=== PATIENT | male | born 1950 | race Caucasian/White ===

== ENCOUNTER 2020-06-06 15:14 | Emergency (ER) | payer MEDICARE, OTHER ==
[~2020-06-06] VITALS: Ht 177.8 cm; Wt 85.0 kg
[~2020-06-06 15:14] MED LIST: ASCO500T4 PO; ATOR20TA58 PO; CARB1TAB2 PO; CEPH-264 PO; MULT1TAB90 PO; MUPI22OI2 NS; QUET25TA5 PO; ROPI4TAB10 PO
--- NOTE | 2020-06-06 15:42 | PHYS DOC ---
Past Medical History Past Medical History: Dementia, Other Additional Past Medical Histor: parkinson's Additional Past Surgical Histo: pt is poor historian Smoking Status: Never Smoker Alcohol Use: None Drug Use: None General Adult EDM: Chief Complaint: MECHANICAL FALL HPI: HPI: Patient is a 69-year-old male with dementia who stays at a snf. Apparently, he fell sometime last night. Patient does not remember falling. He does not have any current complaints. He does not have a headache he does not have any long bone pain. According to the snf they found him with blood in his mouth and short of breath. EMS was called and EMS his report was he had no blood and was not short of breath. Patient is able to answer questions and very clearly states he is having no symptoms and would prefer to go home. [] Review of Systems: Review of Systems: Constitutional: Denies fever or chills. [] Eyes: Denies change in visual acuity. [] HENT: Denies nasal congestion or sore throat. [] Respiratory: Denies cough or shortness of breath. [] Cardiovascular: Denies chest pain or edema. [] GI: Denies abdominal pain, nausea, vomiting, bloody stools or diarrhea. [] Musculoskeletal: Denies back pain or joint pain. [] Review of systems is unobtainable secondary to dementia Heart Score: Risk Factors: Risk Factors: DM, Current or recent (<one month) smoker, HTN, HLP, family history of CAD, obesity. Risk Scores: Score 0 - 3: 2.5% MACE over next 6 weeks - Discharge Home Score 4 - 6: 20.3% MACE over next 6 weeks - Admit for Clinical Observation Score 7 - 10: 72.7% MACE over next 6 weeks - Early Invasive Strategies Allergies: Allergies: Allergies Coded Allergies Type Severity Reaction Last Updated Verified No Known Drug Allergies 07/28/19 No Physical Exam: PE: Constitutional: Well developed, well nourished, no acute distress, non-toxic appearance, readily answers questions. [] HENT: Normocephalic, atraumatic, bilateral external ears normal, oropharynx moist, no oral exudates, nose normal. [] Eyes: PERRLA, EOMI, conjunctiva normal, no discharge. [] Neck: Normal range of motion, no tenderness, supple, no stridor. [] Cardiovascular:Heart rate regular rhythm, no murmur [] Lungs & Thorax: Bilateral breath sounds clear to auscultation [] Abdomen: Bowel sounds normal, soft, no tenderness, no masses, no pulsatile masses. [] Skin: Warm, dry, no erythema, no rash. [] Back: No tenderness, no CVA tenderness. [] Extremities: No tenderness, no cyanosis, no clubbing, ROM intact, no edema. [] Neurologic: Alert to person and time, normal motor function, normal sensory function, no focal deficits noted. [] Psychologic: Flat affect [] EKG: EKG: EKG: Normal sinus rhythm rate of [address]-T changes [] Radiology/Procedures: Radiology/Procedures: [] Course & Med Decision Making: Course & Med Decision Making Pertinent Labs and Imaging studies reviewed. (See chart for details) [ED course: Evaluation reveals a 69-year-old with no visible complaints or problems. His vital signs are normal his oxygen saturation is in the upper 90s and his breath is nonlabored. At this point I do not see any reason to undergo a work-up for someone with no complaints. I feel it safe for the patient to be sent back to the snf.] Dragon Disclaimer: Dragon Disclaimer: This electronic medical record was generated, in whole or in part, using a voice recognition dictation system. Departure Departure Impression: Primary Impression: Unwitnessed fall Disposition: 01 HOME, SELF-CARE Condition: STABLE Referrals: NON,STAFF (PCP) Patient Instructions: Fall Prevention in Hospitals Additional Instructions: Return to the emergency department with any new or concerning symptoms Justicifation of Admission Dx: Justifications for Admission: Justification of Admission Dx: TAMIA Oro DO Jun 06, 2020 15:41
[2020-06-06 17:05] VITALS: BP 141/87
== END 2020-06-06 17:30 | disposition home or self-care (01) ==
LOC: ER 15:14
DX: R06.02 Shortness of breath (principal); K14.9 Disease of tongue, unspecified; G20 Parkinson's disease; F02.80 Dementia in other diseases classified elsewhere, unspecified severity, without behavioral disturbance, psychotic disturbance, mood disturbance, and anxiety; W19.XXXA Unspecified fall, initial encounter; Y93.89 Activity, other specified; Y92.128 Other place in nursing home as the place of occurrence of the external cause; Y99.8 Other external cause status
CPT/HCPCS: 99284

== ENCOUNTER 2020-06-11 14:52 | Inpatient (IN) | payer MEDICARE, OTHER ==
[~2020-06-11] VITALS: Ht 167.6 cm; Wt 77.7 kg
[2020-06-11] VITALS (7 sets, daily range): BP systolic 103–131; BP diastolic 51–78
[2020-06-11] MEDS ORDERED: IV NORMAL SALINE 1000ML BAG 1,000 ML IV ONE (15:00)
--- NOTE | 2020-06-11 15:15 | PHYS DOC ---
Past Medical History Past Medical History: Dementia, Other Additional Past Medical Histor: parkinson's, pressure ulcer Left hip Additional Past Surgical Histo: pt is poor historian, + midline chest surgical scar (old) Smoking Status: Never Smoker Alcohol Use: None Drug Use: None General Adult EDM: Chief Complaint: FEVER, COUGH HPI: HPI: Patient is a 69 year old male who presents with fever. History and physical is limited as altered mental status. EMS reports a temperature of 101. Patient was also found to be hypoxic requiring oxygen. Patient denies any shortness of breath. Patient denies cough but is coughing in the room. Patient denies any pain at this time. Patient is from a alf with known COVID patients. Review of Systems: Review of Systems: Constitutional: Reports fever Eyes: Denies change in visual acuity. [] HENT: Denies nasal congestion or sore throat. [] Respiratory: Reports of cough and shortness of breath Cardiovascular: Denies chest pain or edema. [] GI: Denies abdominal pain, nausea, vomiting, bloody stools or diarrhea. [] : Denies dysuria. [] Musculoskeletal: Denies back pain or joint pain. [] Integument: Denies rash. [] Neurologic: Denies headache, focal weakness or sensory changes. [] Endocrine: Denies polyuria or polydipsia. [] Lymphatic: Denies swollen glands. [] Psychiatric: Denies depression or anxiety. [] Heart Score: Risk Factors: Risk Factors: DM, Current or recent (<one month) smoker, HTN, HLP, family history of CAD, obesity. Risk Scores: Score 0 - 3: 2.5% MACE over next 6 weeks - Discharge Home Score 4 - 6: 20.3% MACE over next 6 weeks - Admit for Clinical Observation Score 7 - 10: 72.7% MACE over next 6 weeks - Early Invasive Strategies Current Medications: Current Medications Medications (Trade) Dose Ordered Sig/Abbey Start Time Stop Time Status Last Admin Dose Admin Acetaminophen (Tylenol) 1,000 mg 1X ONCE 06/11/20 15:30 06/11/20 15:31 Piperacillin Sod/ Tazobactam Sod 4.5 gm/Sodium Chloride 100 ml @ 200 mls/hr 1X ONCE 06/11/20 15:30 06/11/20 15:59 Sodium Chloride 1,000 ml @ 1,000 mls/hr 1X ONCE 06/11/20 15:00 06/11/20 15:59 Allergies: Allergies: Allergies Coded Allergies Type Severity Reaction Last Updated Verified No Known Drug Allergies 07/28/19 No Physical Exam: PE: Constitutional: Well developed, well nourished, mild distress HENT: Normocephalic, atraumatic, no trismus, mild dry oral mucosa Eyes: PERRLA, EOMI, conjunctiva normal, no discharge. [] Neck: Normal range of motion, no tenderness, supple, no stridor. [] Cardiovascular:Heart rate regular rhythm, no murmur [] Lungs & Thorax: Diminished breath sounds with scattered rhonchi Abdomen: soft, no tenderness, no masses, no pulsatile masses. [] Skin: Warm, dry, pale Back: No tenderness, no CVA tenderness. [] Extremities: No tenderness, no cyanosis, no clubbing, ROM intact, no edema. [] Neurologic: Alert and and oriented to year but confused exact date., Generalized weakness Psychologic: Affect normal, judgement normal, mood normal. [] Current Patient Data: Labs: Laboratory Tests Test 06/11/20 15:10 06/11/20 16:53 White Blood Count 3.8 x10^3/uL Red Blood Count 2.60 x10^6/uL Hemoglobin 7.6 g/dL Hematocrit 22.0 % Mean Corpuscular Volume 85 fL Mean Corpuscular Hemoglobin 29 pg Mean Corpuscular Hemoglobin Concent 34 g/dL Red Cell Distribution Width 13.8 % Platelet Count 131 x10^3/uL Neutrophils (%) (Auto) 83 % Lymphocytes (%) (Auto) 11 % Monocytes (%) (Auto) 5 % Eosinophils (%) (Auto) 0 % Basophils (%) (Auto) 0 % Neutrophils # (Auto) 3.1 x10^3/uL Lymphocytes # (Auto) 0.4 x10^3/uL Monocytes # (Auto) 0.2 x10^3/uL Eosinophils # (Auto) 0.0 x10^3/uL Basophils # (Auto) 0.0 x10^3/uL Prothrombin Time 14.6 SEC Prothromb Time International Ratio 1.2 Activated Partial Thromboplast Time 38 SEC Fibrinogen 279 mg/dL D-Dimer (Codi) 18.00 ug/mlFEU Sodium Level 135 mmol/L Potassium Level 4.1 mmol/L Chloride Level 101 mmol/L Carbon Dioxide Level 14 mmol/L Anion Gap 20 Blood Urea Nitrogen 141 mg/dL Creatinine 6.0 mg/dL Estimated GFR (Cockcroft-Gault) 9.4 BUN/Creatinine Ratio 24 Glucose Level 130 mg/dL Lactic Acid Level 1.0 mmol/L Calcium Level 6.2 mg/dL Total Bilirubin 0.3 mg/dL Aspartate Amino Transf (AST/SGOT) 59 U/L Alanine Aminotransferase (ALT/SGPT) 16 U/L Alkaline Phosphatase 90 U/L Creatine Kinase 1237 U/L Troponin I Quantitative 0.038 ng/mL C-Reactive Protein, Quantitative 80.6 mg/L UT-Opb-G-Type Natriuretic Peptide 1500 pg/mL Total Protein 7.7 g/dL Albumin 3.3 g/dL Albumin/Globulin Ratio 0.8 Lipase 504 U/L Procalcitonin 0.68 ng/mL O2 Saturation 95 % Arterial Blood pH 7.35 Arterial Blood pCO2 at Patient Temp 21 mmHg Arterial Blood pO2 at Patient Temp 86 mmHg Arterial Blood HCO3 11 mmol/L Arterial Blood Base Excess -13 mmol/L FiO2 100% nrb Current Medications Medications (Trade) Dose Ordered Sig/Abbey Route PRN Reason Start Time Stop Time Status Last Admin Dose Admin Piperacillin Sod/ Tazobactam Sod 4.5 gm/Sodium Chloride 100 ml @ 200 mls/hr 1X ONCE IV 06/11/20 15:30 06/11/20 15:59 DC 06/11/20 15:24 Sodium Chloride 1,000 ml @ 1,000 mls/hr 1X ONCE IV 06/11/20 15:00 06/11/20 15:59 DC 06/11/20 15:23 Acetaminophen (Tylenol) 1,000 mg 1X ONCE PO 06/11/20 15:30 06/11/20 15:31 DC 06/11/20 15:23 Ondansetron HCl (Zofran) 4 mg PRN Q8HRS PRN IV NAUSEA/VOMITING 06/11/20 16:15 06/12/20 16:14 Sodium Chloride 1,000 ml @ 125 mls/hr Q8H IV 06/11/20 16:07 06/12/20 16:06 Vital Signs: Vital Signs Date Time Temp Pulse Resp B/P (MAP) Pulse Ox O2 Delivery O2 Flow Rate FiO2 06/11/20 17:12 94 NonRebreather Mask 15.0 06/11/20 16:34 84 121/66 (84) 95 NonRebreather Mask 06/11/20 16:31 84 124/68 (86) 85 NonRebreather Mask 06/11/20 15:33 86 122/57 (78) 94 NonRebreather Mask 06/11/20 14:52 100.8 88 24 122/57 (78) 96 Nasal Cannula 6.0 100.8 EKG: EKG: [] EKG interpreted by me normal sinus rhythm with a rate of 87 left axis deviation nonspecific ST changes normal intervals Radiology/Procedures: Radiology/Procedures: [][facility] [address] [place] [address] IMAGING REPORT Signed PATIENT: CHEL YE AACCOUNT: [id number] : 1950 LOCATION: ER AGE: 69 SEX: M EXAM STATUS: REG ER ORD. PHYSICIAN: STEFAN MOCK MD REASON: FEVER, COVID PRECAUTIONS PROCEDURE: PORTABLE CHEST 1V PORTABLE CHEST 1V History: Reason: FEVER, COVID PRECAUTIONS / Spl. Instructions: / History: Comparison: July 28, 2019 Findings: Unchanged widening of the superior mediastinum. Ill-defined patchy bilateral pulmonary opacities. No pleural effusion. No pneumothorax. Prior median sternotomy. Unchanged heart size. Impression: 1. Ill-defined bibasilar opacities, can be seen with viral pneumonia. 2. Unchanged widening of the superior mediastinum, may relate to tortuous thoracic aortic aneurysm. Recommend comparison with prior cross sectional imaging. If prior imaging not available, CT can definitively evaluate. Electronically signed by: Colin Farrell DO (06/11/2020 4:23 PM) [id number] DICTATED and SIGNED BY: COLIN FARRELL DO DATE: 06/11/20 1623 Course & Med Decision Making: Course & Med Decision Making Pertinent Labs and Imaging studies reviewed. (See chart for details) [] Discussed with Dr. Cifuentes who will admit. DISCUSSED WITH Dr. Torres who will consult. Discussed with Dr. Levi who will consult Critically ill 69-year-old male presents with fever cough and peripheral infiltrates on x-ray very concerning for COVID-19. Patient also has what appears to be metabolic acidosis and acute renal failure. Patient also anemic. Patient's not below 7 was hemoglobin therefore he is not getting a blood transfusion. Patient given antibiotics and IV fluids in ER. Patient on isolation precautions and has been swabbed for COVID-19. Patient is satting in the upper 90s on a nonrebreather and appears more comfortable on that as opposed to a nasal cannula. Patient is going to be admitted up to the ICU for further evaluation and treatment. Critical care time was [40] minutes which includes time at bedside, spent in discussion of patient's care with specialist and/or family members, with interpretation of laboratory and/or radiological studies and is exclusive of procedures. Critical care time was [40] minutes exclusive of procedures. Critical conditions: Respiratory failure, renal failure, pneumonia, profound anemia Critical interventions: High flow oxygen with a nonrebreather, IV fluids, a ntibiotics, admission to the ICU with multiple consults Guillermo Disclaimer: Guillermo Disclaimer: This electronic medical record was generated, in whole or in part, using a voice recognition dictation system. Departure Departure Impression: Primary Impression: Respiratory failure Additional Impressions: Renal failure Profound anemia Suspected COVID-19 virus infection Condition: CRITICAL Referrals: NON,STAFF (PCP) Justicifation of Admission Dx: Justifications for Admission: Justification of Admission Dx: No STEFAN MOCK MD Jun 11, 2020 15:15
[2020-06-11 15:27] LABS: BASO % 0 % (0-3); EOS % 0 % (0-3); HEMOGLOBIN 7.6 g/dL (13.0-17.5); LYMPH # 0.4 x10^3/uL (1.0-4.8); LYMPH % 11 % (24-48); MEAN CORPUSCULAR HEMOGLOBIN 29 pg (25-35); MEAN CORPUSCULAR HGB CONC 34 g/dL (31-37); MEAN CORPUSCULAR VOLUME 85 fL (79-100); MONO # 0.2 x10^3/uL (0.0-1.1); MONO % 5 % (0-9); NEUT # 3.1 x10^3/uL (1.8-7.7); NEUT % 83 % (31-73); PLATELET COUNT 131 x10^3/uL (140-400); RED CELL DISTRIBUTION WIDTH 13.8 % (11.5-14.5); WHITE BLOOD COUNT 3.8 x10^3/uL (4.0-11.0)
[2020-06-11] MEDS ORDERED: ACETAMINOPHEN 500 MG TABLET PO ONE (15:30)
[2020-06-11] MEDS ORDERED: PIPERACILLIN/TAZOBACTAM 4.5 GM in IV NORMAL SALINE 100ML 100 ML IV ONE (15:30)
[2020-06-11 15:37] LABS: PROTHROMBIN TIME PATIENT 14.6 SEC (11.7-14.0)
[2020-06-11 15:48] LABS: CALCIUM 6.2 mg/dL (8.5-10.1); GFR 9.4; POTASSIUM 4.1 mmol/L (3.5-5.1)
[2020-06-11] MEDS ORDERED: IV NORMAL SALINE 1000ML BAG 1,000 ML IV SCH ×2 (16:07→17:57)
[2020-06-11 16:09] LABS: ALBUMIN 3.3 g/dL (3.4-5.0); ALBUMIN/GLOBULIN RATIO 0.8 (1.0-1.7); C-REACTIVE PROTEIN 80.6 mg/L (0-3.3); TOTAL BILIRUBIN 0.3 mg/dL (0.2-1.0); TOTAL PROTEIN 7.7 g/dL (6.4-8.2)
[2020-06-11] MEDS ORDERED: ONDANSETRON PF 4 MG/2 ML VIAL. IV PRN (16:15)
--- NOTE | 2020-06-11 16:22 | PDOC1 ---
History and Physical Date of Admission Date of Admission DATE: 06/11/20 TIME: 16:22 Identification/Chief Complaint Chief Complaint SEEN IN ER WITH SUSPECTED COVID-19 RESP SYNDROME AND OFELIA. 69 year old male who presents with fever. History and physical is limited as altered mental status. EMS reports a temperature of 101. Patient was also found to be hypoxic requiring oxygen. Patient denies any shortness of breath. //coughing in the room. // denies any pain at this time. ON 6 LITERS [facility] from a [facility] with known COVID patients. cpk elevated as well Past Medical History Past Medical History Past Medical History Past Medical History: Dementia, Other Additional Past Medical Histor: parkinson's, pressure ulcer Left hip Additional Past Surgical Histo: pt is poor historian, + midline chest surgical scar (old) Smoking Status: Never Smoker Alcohol Use: None Drug Use: None fhx HTN CENTRAL NERVOUS SYSTEM: Other Musculoskeletal: Osteoarthritis Past Surgical History Past Surgical History: No pertinent history Family History Family History: Alzheimer's Disease, Hypertension Social History Smoke: No ALCOHOL: none Drugs: None Current Problem List Problem List Problems Medical Problems: (1) Renal failure Status: Acute (2) Respiratory failure Status: Acute Current Medications Current Medications Current Medications Piperacillin Sod/ Tazobactam Sod 4.5 gm/Sodium Chloride 100 ml @ 200 mls/hr 1X ONCE IV Last administered on 06/11/20at 15:24; Start 06/11/20 at 15:30; Stop 06/11/20 at 15:59; Status DC Sodium Chloride 1,000 ml @ 1,000 mls/hr 1X ONCE IV Last administered on 06/11/20at 15:23; Start 06/11/20 at 15:00; Stop 06/11/20 at 15:59; Status DC Acetaminophen (Tylenol) 1,000 mg 1X ONCE PO Last administered on 06/11/20at 15:23; Start 06/11/20 at 15:30; Stop 06/11/20 at 15:31; Status DC Ondansetron HCl (Zofran) 4 mg PRN Q8HRS PRN IV NAUSEA/VOMITING; Start 06/11/20 at 16:15; Stop 06/12/20 at 16:14 Sodium Chloride 1,000 ml @ 125 mls/hr Q8H IV ; Start 06/11/20 at 16:07; Stop 06/12/20 at 16:06 Active Scripts Active Keflex (Cephalexin) 500 Mg Capsule 1 Cap PO TID Vitamin C (Ascorbic Acid) 500 Mg Tablet 500 Mg PO DAILY Mupirocin Ointment (Mupirocin) 22 Gm Oint...g. 1 Oh NS BID Thera-M Tablet (Multivits,Ca,Minerals/Iron/Fa) 1 Each Tablet 1 Tab PO DAILY Reported Seroquel (Quetiapine Fumarate) 25 Mg Tablet 1 Tab PO QHS Ropinirole Hcl 4 Mg Tablet 4 Mg PO BID Atorvastatin Calcium 20 Mg Tablet 20 Mg PO HS Sinemet 25-100 Mg Tablet (Carbidopa/Levodopa) 1 Each Tablet 1 Tab PO QID PRN Allergies Allergies: Coded Allergies: No Known Drug Allergies (Unverified , 07/28/19) ROS Review of System Constitutional: POS fever Eyes: Denies change in visual acuity. [] HENT: Denies nasal congestion or sore throat. [] Respiratory: POS cough and shortness of breath Cardiovascular: Denies chest pain or edema. [] GI: Denies abdominal pain, nausea, vomiting, bloody stools or diarrhea. [] : Denies dysuria. [] Musculoskeletal: Denies back pain or joint pain. [] Integument: Denies rash. [] Neurologic: Denies headache, focal weakness or sensory changes. [] Endocrine: Denies polyuria or polydipsia. [] Lymphatic: Denies swollen glands. [] Psychiatric: Denies depression or anxiety. [] 14 PT ROS OTHERWISE NEG General: YES: Chills, Fatigue, Malaise PSYCHOLOGICAL ROS: YES: Disorientation Hematological and Lymphatic: No: Bleeding Problems, Blood Clots, Blood Transfusions, Brusing, Night Sweats, Pallor, Swollen Lymph Nodes, Other Respiratory: YES: Cough Physical Exam Physical Exam Constitutional: Well developed, well nourished, mild distress HENT: Normocephalic, atraumatic, no trismus, mild dry oral mucosa Eyes: PERRLA, EOMI, conjunctiva normal, no discharge. [] Neck: Normal range of motion, no tenderness, supple, no stridor. [] Cardiovascular:Heart rate regular rhythm, no murmur [] Lungs & Thorax: Diminished breath sounds with scattered rhonchi Abdomen: soft, no tenderness, no masses, no pulsatile masses. [] Skin: Warm, dry, pale Back: No tenderness, no CVA tenderness. [] Extremities: No tenderness, no cyanosis, no clubbing, ROM intact, no edema. [] Neurologic: Alert and and oriented to year but confused exact date., Generalized weakness General: Cooperative, mild distress HEENT: Atraumatic Abdomen: Soft Rectal Exam: not examined PELVIC: Examination not indicated Extremities: No cyanosis Neuro: Cranial nerves 3-12 NL Vitals Vitals Vital Signs Date Time Temp Pulse Resp B/P (MAP) Pulse Ox O2 Delivery O2 Flow Rate FiO2 06/11/20 14:52 100.8 88 24 122/57 (78) 96 Nasal Cannula 6.0 100.8 Labs Labs Laboratory Tests Test 06/11/20 15:10 White Blood Count 3.8 x10^3/uL (4.0-11.0) Red Blood Count 2.60 x10^6/uL (4.30-5.70) Hemoglobin 7.6 g/dL (13.0-17.5) Hematocrit 22.0 % (39.0-53.0) Mean Corpuscular Volume 85 fL (79-100) Mean Corpuscular Hemoglobin 29 pg (25-35) Mean Corpuscular Hemoglobin Concent 34 g/dL (31-37) Red Cell Distribution Width 13.8 % (11.5-14.5) Platelet Count 131 x10^3/uL (140-400) Neutrophils (%) (Auto) 83 % (31-73) Lymphocytes (%) (Auto) 11 % (24-48) Monocytes (%) (Auto) 5 % (0-9) Eosinophils (%) (Auto) 0 % (0-3) Basophils (%) (Auto) 0 % (0-3) Neutrophils # (Auto) 3.1 x10^3/uL (1.8-7.7) Lymphocytes # (Auto) 0.4 x10^3/uL (1.0-4.8) Monocytes # (Auto) 0.2 x10^3/uL (0.0-1.1) Eosinophils # (Auto) 0.0 x10^3/uL (0.0-0.7) Basophils # (Auto) 0.0 x10^3/uL (0.0-0.2) Prothrombin Time 14.6 SEC (11.7-14.0) Prothromb Time International Ratio 1.2 (0.8-1.1) Activated Partial Thromboplast Time 38 SEC (24-38) Fibrinogen 279 mg/dL (200-440) D-Dimer (Codi) 18.00 ug/mlFEU (0.00-0.50) Sodium Level 135 mmol/L (136-145) Potassium Level 4.1 mmol/L (3.5-5.1) Chloride Level 101 mmol/L (98-107) Carbon Dioxide Level 14 mmol/L (21-32) Anion Gap 20 (6-14) Blood Urea Nitrogen 141 mg/dL (8-26) Creatinine 6.0 mg/dL (0.7-1.3) Estimated GFR (Cockcroft-Gault) 9.4 BUN/Creatinine Ratio 24 (6-20) Glucose Level 130 mg/dL (70-99) Lactic Acid Level 1.0 mmol/L (0.4-2.0) Calcium Level 6.2 mg/dL (8.5-10.1) Total Bilirubin 0.3 mg/dL (0.2-1.0) Aspartate Amino Transf (AST/SGOT) 59 U/L (15-37) Alanine Aminotransferase (ALT/SGPT) 16 U/L (16-63) Alkaline Phosphatase 90 U/L (46-116) Creatine Kinase 1237 U/L (39-308) Troponin I Quantitative 0.038 ng/mL (0.000-0.055) C-Reactive Protein, Quantitative 80.6 mg/L (0-3.3) IK-Mja-M-Type Natriuretic Peptide 1500 pg/mL (0-124) Total Protein 7.7 g/dL (6.4-8.2) Albumin 3.3 g/dL (3.4-5.0) Albumin/Globulin Ratio 0.8 (1.0-1.7) Lipase 504 U/L (73-393) Procalcitonin 0.68 ng/mL (0.00-0.10) Laboratory Tests Test 06/11/20 15:10 White Blood Count 3.8 x10^3/uL (4.0-11.0) Red Blood Count 2.60 x10^6/uL (4.30-5.70) Hemoglobin 7.6 g/dL (13.0-17.5) Hematocrit 22.0 % (39.0-53.0) Mean Corpuscular Volume 85 fL (79-100) Mean Corpuscular Hemoglobin 29 pg (25-35) Mean Corpuscular Hemoglobin Concent 34 g/dL (31-37) Red Cell Distribution Width 13.8 % (11.5-14.5) Platelet Count 131 x10^3/uL (140-400) Neutrophils (%) (Auto) 83 % (31-73) Lymphocytes (%) (Auto) 11 % (24-48) Monocytes (%) (Auto) 5 % (0-9) Eosinophils (%) (Auto) 0 % (0-3) Basophils (%) (Auto) 0 % (0-3) Neutrophils # (Auto) 3.1 x10^3/uL (1.8-7.7) Lymphocytes # (Auto) 0.4 x10^3/uL (1.0-4.8) Monocytes # (Auto) 0.2 x10^3/uL (0.0-1.1) Eosinophils # (Auto) 0.0 x10^3/uL (0.0-0.7) Basophils # (Auto) 0.0 x10^3/uL (0.0-0.2) Prothrombin Time 14.6 SEC (11.7-14.0) Prothromb Time International Ratio 1.2 (0.8-1.1) Activated Partial Thromboplast Time 38 SEC (24-38) Fibrinogen 279 mg/dL (200-440) D-Dimer (Codi) 18.00 ug/mlFEU (0.00-0.50) Sodium Level 135 mmol/L (136-145) Potassium Level 4.1 mmol/L (3.5-5.1) Chloride Level 101 mmol/L (98-107) Carbon Dioxide Level 14 mmol/L (21-32) Anion Gap 20 (6-14) Blood Urea Nitrogen 141 mg/dL (8-26) Creatinine 6.0 mg/dL (0.7-1.3) Estimated GFR (Cockcroft-Gault) 9.4 BUN/Creatinine Ratio 24 (6-20) Glucose Level 130 mg/dL (70-99) Lactic Acid Level 1.0 mmol/L (0.4-2.0) Calcium Level 6.2 mg/dL (8.5-10.1) Total Bilirubin 0.3 mg/dL (0.2-1.0) Aspartate Amino Transf (AST/SGOT) 59 U/L (15-37) Alanine Aminotransferase (ALT/SGPT) 16 U/L (16-63) Alkaline Phosphatase 90 U/L (46-116) Creatine Kinase 1237 U/L (39-308) Troponin I Quantitative 0.038 ng/mL (0.000-0.055) C-Reactive Protein, Quantitative 80.6 mg/L (0-3.3) LL-Ekd-B-Type Natriuretic Peptide 1500 pg/mL (0-124) Total Protein 7.7 g/dL (6.4-8.2) Albumin 3.3 g/dL (3.4-5.0) Albumin/Globulin Ratio 0.8 (1.0-1.7) Lipase 504 U/L (73-393) Procalcitonin 0.68 ng/mL (0.00-0.10) Images Images PORTABLE CHEST 1V History: Reason: FEVER, COVID PRECAUTIONS / Spl. Instructions: / History: Comparison: July 28, 2019 Findings: Unchanged widening of the superior mediastinum. Ill-defined patchy bilateral pulmonary opacities. No pleural effusion. No pneumothorax. Prior median sternotomy. Unchanged heart size. Impression: 1. Ill-defined bibasilar opacities, can be seen with viral pneumonia. 2. Unchanged widening of the superior mediastinum, may relate to tortuous thoracic aortic aneurysm. Recommend comparison with prior cross sectional imaging. If prior imaging not available, CT can definitively evaluate. Electronically signed by: Colin Still DO (06/11/2020 4:23 PM) [id number] DICTATED and SIGNED BY: COLIN STILL DO DATE: 06/11/20 1623 VTE Prophylaxis Ordered VTE Prophylaxis Devices: No VTE Pharmacological Prophylaxi: Yes Assessment/Plan Assessment/Plan Impression: 1. acute Hypoxic respiratory failure 2. highly suspect for covid-19 pneumonia 3. Ill-defined bibasilar opacities, can be seen with viral pneumonia. on cxr 06/11 4. ACUTE RENAL INJURY 5. Parkinson's disease, advanced 6. rhabdomyolysis plan admit icu bed o2 support pulmonary consult Nephrology consult dvt prophylaxis SQ HEPARIN Q 8 HRS BLOOD CULTURE IV FLUID SUPPORT PER NEPHROLOGY iv pepsid 20mg bid CRITICALLY ILL, POOR PROGNOSIS 37 MIN CC TIME Justicifation of Admission Dx: Justifications for Admission: Justification of Admission Dx: No MONICA SNIDER MD Jun 11, 2020 16:22
--- NOTE | 2020-06-11 16:26 | RAD ---
PORTABLE CHEST 1V History: Reason: FEVER, COVID PRECAUTIONS / Spl. Instructions: / History: Comparison: July 28, 2019 Findings: Unchanged widening of the superior mediastinum. Ill-defined patchy bilateral pulmonary opacities. No pleural effusion. No pneumothorax. Prior median sternotomy. Unchanged heart size. Impression: 1. Ill-defined bibasilar opacities, can be seen with viral pneumonia. 2. Unchanged widening of the superior mediastinum, may relate to tortuous thoracic aortic aneurysm. Recommend comparison with prior cross sectional imaging. If prior imaging not available, CT can definitively evaluate. Electronically signed by: Colin Farrell DO (06/11/2020 4:23 PM) [id number]
[2020-06-11 17:08] LABS: BASE EXCESS ABG -13 mmol/L (-3-3); HCO3 ABG 11 mmol/L (21-28); PCO2 ABG 21 mmHg (35-46); PO2 ABG 86 mmHg (65-108); SAT O2 ABG 95 % (92-99)
[2020-06-11 17:24] LABS: FIO2 ABG 100% NRB
--- NOTE | 2020-06-11 17:54 | RAD ---
EXAMINATION: VENOUS LOWER EXT BILATERAL HISTORY: Elevated d-dimer, leg pain COMPARISON/CORRELATION: None FINDINGS: Bilateral lower extremity duplex venous ultrasound exam was performed. Grayscale, color Doppler, and spectral Doppler imaging was performed. Compression and augmentation was performed. The right common femoral vein, superficial femoral vein, popliteal vein, and saphenofemoral junction are normal with no evidence of deep venous thrombus. The visualized calf veins are unremarkable. Normal compressibility and augmentation is evident. The left common femoral vein, superficial femoral vein, popliteal vein, and saphenofemoral junction are normal with no evidence of deep venous thrombus. The visualized calf veins are unremarkable. Normal compressibility and augmentation is evident. IMPRESSION: Normal bilateral lower extremity duplex ultrasound exam. No evidence of deep venous thrombus involving the lower extremities. Electronically signed by: Deon Tan MD (06/11/2020 5:51 PM) [id number]
[2020-06-11] MEDS ORDERED: 0.9 % SODIUM CHLORIDE 10 ML DISP.SYRIN. IV PRN (18:00)
[2020-06-11] MEDS ORDERED: PIP/TAZO PER PHARMACY MC PRN (18:00)
[2020-06-11] MEDS ORDERED: ACETAMINOPHEN 325 MG TABLET. PO PRN (18:00)
[2020-06-11] MEDS ORDERED: BISACODYL 10 MG SUPP.RECT. PR PRN (18:00)
[2020-06-11] MEDS: CARBIDOPA/LEVODOPA 25/100MG TABLET PO SCH ×2 (18:15→21:00)
--- NOTE | 2020-06-11 18:15 | NUR ---
Patient brought to room 110 via stretcher accompanied by ER personnel. Alert and oriented but combative and stating that he doesn't trust any of us and to just leave him alone. Reminded him that he is in the hospital. Patient requesting his billfold. Explained that it is at the long term. Patient a little combative trying to take NRB mask off. Mitts on patient bilaterally. Lungs with wheezing and labored respirations.
[2020-06-11] MEDS: PIPERACILLIN/TAZOBACTAM 2.25 GM in IV NORMAL SALINE 50ML 50 ML IV SCH (18:30)
--- NOTE | 2020-06-11 18:48 | NUR ---
Piperacillin non admin for 1829 since first dose at 1530
[2020-06-11] MEDS: HEPARIN for SUB-Q USE 5,000 UNIT/ML VIAL. SQ SCH (20:35)
[2020-06-11] MEDS: rOPINIRole 1 MG TABLET. PO SCH (20:41)
[2020-06-11] MEDS: MUPIROCIN 2 % NASAL OINTMENT 22GM TUBE. NS SCH (20:41)
[2020-06-11] MEDS: FAMOTIDINE 20 MG/2 ML VIAL IVP SCH (20:41)
[2020-06-11] MEDS: DOCUSATE SODIUM 100 MG CAPSULE. PO SCH (20:41)
[2020-06-11] MEDS: QUEtiapine 25 MG TABLET. PO SCH (20:41)
--- NOTE | 2020-06-11 21:00 | NUR ---
Pt' s legal Guardian Cheyenne Gomez (fur plucker) called to get update on pt. She said if patient's condition deteriorates to where he needs to be placed on comfort measures/care, she will need to obtain a court order for that. She asked to be immediately notified on any changes on pt's condition.
[2020-06-11 22:09] LABS: BILIRUBIN,URINE NEGATIVE (NEG); CLARITY,URINE CLEAR; COLOR,URINE YELLOW; NITRITE,URINE NEGATIVE (NEG); PROTEIN,URINE 30 mg/dL (NEG-TRACE); UROBILINOGEN,URINE 0.2 mg/dL (0.2 mg/dL)
[2020-06-11 22:18] LABS: BACTERIA,URINE 0 /HPF (0-FEW); WBC,URINE 0 /HPF (0-4)
[2020-06-11 22:19] LABS: RBC,URINE OCC /HPF (0-2)
[2020-06-12] VITALS (25 sets, daily range): BP systolic 90–154; BP diastolic 8–87
[2020-06-12] MEDS: PIPERACILLIN/TAZOBACTAM 2.25 GM in IV NORMAL SALINE 50ML 50 ML IV SCH ×5 (01:09→23:56)
[2020-06-12 05:25] LABS: BASO % 1 % (0-3); EOS % 0 % (0-3); HEMOGLOBIN 7.5 g/dL (13.0-17.5); LYMPH # 0.5 x10^3/uL (1.0-4.8); LYMPH % 14 % (24-48); MEAN CORPUSCULAR HEMOGLOBIN 29 pg (25-35); MEAN CORPUSCULAR HGB CONC 34 g/dL (31-37); MEAN CORPUSCULAR VOLUME 85 fL (79-100); MONO # 0.1 x10^3/uL (0.0-1.1); MONO % 4 % (0-9); NEUT # 2.9 x10^3/uL (1.8-7.7); NEUT % 82 % (31-73); PLATELET COUNT 123 x10^3/uL (140-400); RED BLOOD COUNT 2.58 x10^6/uL (4.30-5.70); RED CELL DISTRIBUTION WIDTH 14.2 % (11.5-14.5); WHITE BLOOD COUNT 3.6 x10^3/uL (4.0-11.0)
[2020-06-12] MEDS: HEPARIN for SUB-Q USE 5,000 UNIT/ML VIAL. SQ SCH ×4 (05:37→22:02)
[2020-06-12 05:54] LABS: ALBUMIN 3.2 g/dL (3.4-5.0); ALBUMIN/GLOBULIN RATIO 0.8 (1.0-1.7); CREATININE 6.4 mg/dL (0.7-1.3); GFR 8.7; POTASSIUM 4.2 mmol/L (3.5-5.1); TOTAL BILIRUBIN 0.3 mg/dL (0.2-1.0); TOTAL PROTEIN 7.4 g/dL (6.4-8.2)
[2020-06-12 05:55] LABS: CALCIUM 5.7 mg/dL (8.5-10.1)
[2020-06-12] MEDS ORDERED: CALCIUM CHLORIDE 2,000 MG in IV NORMAL SALINE 100ML 100 ML IV ONE (07:00)
[2020-06-12] MEDS: FAMOTIDINE 20 MG/2 ML VIAL IVP SCH (08:06)
[2020-06-12] MEDS: MUPIROCIN 2 % NASAL OINTMENT 22GM TUBE. NS SCH ×2 (08:07→21:00)
[2020-06-12] MEDS: ASCORBIC ACID 500 MG TABLET PO SCH (09:00)
[2020-06-12] MEDS: CARBIDOPA/LEVODOPA 25/100MG TABLET PO SCH ×4 (09:00→21:00)
[2020-06-12] MEDS: DOCUSATE SODIUM 100 MG CAPSULE. PO SCH ×2 (09:00→21:00)
[2020-06-12] MEDS: rOPINIRole 1 MG TABLET. PO SCH ×2 (09:00→21:00)
[2020-06-12] MEDS: ELECTROLYTE (ICU) PROTOCOL. MC SCH (09:00)
[2020-06-12] MEDS: MULTIVITAMIN with MINERAL TABLET. PO SCH (09:00)
--- NOTE | 2020-06-12 09:37 | PDOC ---
PROGRESS NOTES History of Present Illness History of Present Illness VTE Prophylaxis Ordered VTE Prophylaxis Devices: No VTE Pharmacological Prophylaxi: Yes Assessment/Plan Assessment/Plan Impression: 1. acute Hypoxic respiratory failure 2. highly suspect for covid-19 pneumonia 3. Ill-defined bibasilar opacities, can be seen with viral pneumonia. on cxr 06/11 4. ACUTE RENAL INJURY 5. Parkinson's disease, advanced 6. rhabdomyolysis 7. HYPOCALCEMIA, DEFER TO NEPHROLOGY 8. METABOLIC ACIDOSIS 9. THROMBOCYTOPENIA 10. microhematuria plan admit icu bed o2 support pulmonary consult Nephrology consult dvt prophylaxis SQ HEPARIN Q 8 HRS UNLESS HEMATOLOGY disagrees BLOOD CULTURE IV FLUID SUPPORT PER NEPHROLOGY iv pepsid 20mg bid ID CONSULT HEME CONSULT renal sono CRITICALLY ILL, POOR PROGNOSIS 34 MIN CC TIME Vitals Vitals Vital Signs Date Time Temp Pulse Resp B/P (MAP) Pulse Ox O2 Delivery O2 Flow Rate FiO2 06/12/20 09:00 90 22 144/72 (96) 97 NonRebreather Mask 15.0 06/12/20 08:00 98.5 98.5 Physical Exam Physical Exam HENT: Normocephalic, atraumatic, no trismus, mild dry oral mucosa Eyes: PERRLA, EOMI, conjunctiva normal, no discharge. [] Neck: Normal range of motion, no tenderness, supple, no stridor. [] Cardiovascular:Heart rate regular rhythm, no murmur [] Lungs & Thorax: Diminished breath sounds with scattered rhonchi Abdomen: soft, no tenderness, no masses, no pulsatile masses. [] Skin: Warm, dry, pale Back: No tenderness, no CVA tenderness. [] Extremities: No tenderness, no cyanosis, no clubbing, ROM intact, no edema. [] Neurologic: Alert and and oriented to year but confused exact date., Generalized weakness General: Cooperative, mild distress HEENT: Atraumatic Abdomen: Soft Rectal Exam: not examined PELVIC: Examination not indicated General: Cooperative, mild distress Abdomen: Soft Extremities: No cyanosis Labs LABS Laboratory Tests Test 06/11/20 15:10 06/11/20 16:53 06/11/20 21:50 06/12/20 05:00 White Blood Count 3.8 x10^3/uL (4.0-11.0) 3.6 x10^3/uL (4.0-11.0) Red Blood Count 2.60 x10^6/uL (4.30-5.70) 2.58 x10^6/uL (4.30-5.70) Hemoglobin 7.6 g/dL (13.0-17.5) 7.5 g/dL (13.0-17.5) Hematocrit 22.0 % (39.0-53.0) 22.0 % (39.0-53.0) Mean Corpuscular Volume 85 fL (79-100) 85 fL (79-100) Mean Corpuscular Hemoglobin 29 pg (25-35) 29 pg (25-35) Mean Corpuscular Hemoglobin Concent 34 g/dL (31-37) 34 g/dL (31-37) Red Cell Distribution Width 13.8 % (11.5-14.5) 14.2 % (11.5-14.5) Platelet Count 131 x10^3/uL (140-400) 123 x10^3/uL (140-400) Neutrophils (%) (Auto) 83 % (31-73) 82 % (31-73) Lymphocytes (%) (Auto) 11 % (24-48) 14 % (24-48) Monocytes (%) (Auto) 5 % (0-9) 4 % (0-9) Eosinophils (%) (Auto) 0 % (0-3) 0 % (0-3) Basophils (%) (Auto) 0 % (0-3) 1 % (0-3) Neutrophils # (Auto) 3.1 x10^3/uL (1.8-7.7) 2.9 x10^3/uL (1.8-7.7) Lymphocytes # (Auto) 0.4 x10^3/uL (1.0-4.8) 0.5 x10^3/uL (1.0-4.8) Monocytes # (Auto) 0.2 x10^3/uL (0.0-1.1) 0.1 x10^3/uL (0.0-1.1) Eosinophils # (Auto) 0.0 x10^3/uL (0.0-0.7) 0.0 x10^3/uL (0.0-0.7) Basophils # (Auto) 0.0 x10^3/uL (0.0-0.2) 0.0 x10^3/uL (0.0-0.2) Prothrombin Time 14.6 SEC (11.7-14.0) Prothromb Time International Ratio 1.2 (0.8-1.1) Activated Partial Thromboplast Time 38 SEC (24-38) Fibrinogen 279 mg/dL (200-440) D-Dimer (Codi) 18.00 ug/mlFEU (0.00-0.50) Sodium Level 135 mmol/L (136-145) 140 mmol/L (136-145) Potassium Level 4.1 mmol/L (3.5-5.1) 4.2 mmol/L (3.5-5.1) Chloride Level 101 mmol/L (98-107) 106 mmol/L (98-107) Carbon Dioxide Level 14 mmol/L (21-32) 16 mmol/L (21-32) Anion Gap 20 (6-14) 18 (6-14) Blood Urea Nitrogen 141 mg/dL (8-26) 141 mg/dL (8-26) Creatinine 6.0 mg/dL (0.7-1.3) 6.4 mg/dL (0.7-1.3) Estimated GFR (Cockcroft-Gault) 9.4 8.7 BUN/Creatinine Ratio 24 (6-20) 22 (6-20) Glucose Level 130 mg/dL (70-99) 102 mg/dL (70-99) Lactic Acid Level 1.0 mmol/L (0.4-2.0) Calcium Level 6.2 mg/dL (8.5-10.1) 5.7 mg/dL (8.5-10.1) Transferrin 227 mg/dL (177-329) Total Bilirubin 0.3 mg/dL (0.2-1.0) 0.3 mg/dL (0.2-1.0) Aspartate Amino Transf (AST/SGOT) 59 U/L (15-37) 66 U/L (15-37) Alanine Aminotransferase (ALT/SGPT) 16 U/L (16-63) 13 U/L (16-63) Alkaline Phosphatase 90 U/L (46-116) 80 U/L (46-116) Creatine Kinase 1237 U/L (39-308) Troponin I Quantitative 0.038 ng/mL (0.000-0.055) C-Reactive Protein, Quantitative 80.6 mg/L (0-3.3) JT-Dht-O-Type Natriuretic Peptide 1500 pg/mL (0-124) Total Protein 7.7 g/dL (6.4-8.2) 7.4 g/dL (6.4-8.2) Albumin 3.3 g/dL (3.4-5.0) 3.2 g/dL (3.4-5.0) Albumin/Globulin Ratio 0.8 (1.0-1.7) 0.8 (1.0-1.7) Lipase 504 U/L (73-393) Procalcitonin 0.68 ng/mL (0.00-0.10) Thyroid Stimulating Hormone (TSH) 0.623 uIU/mL (0.358-3.74) O2 Saturation 95 % (92-99) Arterial Blood pH 7.35 (7.35-7.45) Arterial Blood pCO2 at Patient Temp 21 mmHg (35-46) Arterial Blood pO2 at Patient Temp 86 mmHg (65-108) Arterial Blood HCO3 11 mmol/L (21-28) Arterial Blood Base Excess -13 mmol/L (-3-3) FiO2 100% nrb Urine Collection Type Unknown Urine Color Yellow Urine Clarity Clear Urine pH 5.0 (<5.0-8.0) Urine Specific [place] 1.015 (1.000-1.030) Urine Protein 30 mg/dL (NEG-TRACE) Urine Glucose (UA) Negative mg/dL (NEG) Urine Ketones (Stick) Negative mg/dL (NEG) Urine Blood Moderate (NEG) Urine Nitrite Negative (NEG) Urine Bilirubin Negative (NEG) Urine Urobilinogen Dipstick 0.2 mg/dL (0.2 mg/dL) Urine Leukocyte Esterase Negative (NEG) Urine RBC Occ /HPF (0-2) Urine WBC 0 /HPF (0-4) Urine Transitional Epithelial Cells Occ /LPF Urine Bacteria 0 /HPF (0-FEW) Assessment and Plan Assessmemt and Plan Problems Medical Problems: (1) Profound anemia Status: Acute (2) Renal failure Status: Acute (3) Respiratory failure Status: Acute (4) Suspected COVID-19 virus infection Status: Acute Comment Review of Relevant I have reviewed the following items virgil (where applicable) has been applied. Labs Laboratory Tests Test 06/11/20 15:10 06/11/20 16:53 06/11/20 21:50 06/12/20 05:00 White Blood Count 3.8 x10^3/uL (4.0-11.0) 3.6 x10^3/uL (4.0-11.0) Red Blood Count 2.60 x10^6/uL (4.30-5.70) 2.58 x10^6/uL (4.30-5.70) Hemoglobin 7.6 g/dL (13.0-17.5) 7.5 g/dL (13.0-17.5) Hematocrit 22.0 % (39.0-53.0) 22.0 % (39.0-53.0) Mean Corpuscular Volume 85 fL (79-100) 85 fL (79-100) Mean Corpuscular Hemoglobin 29 pg (25-35) 29 pg (25-35) Mean Corpuscular Hemoglobin Concent 34 g/dL (31-37) 34 g/dL (31-37) Red Cell Distribution Width 13.8 % (11.5-14.5) 14.2 % (11.5-14.5) Platelet Count 131 x10^3/uL (140-400) 123 x10^3/uL (140-400) Neutrophils (%) (Auto) 83 % (31-73) 82 % (31-73) Lymphocytes (%) (Auto) 11 % (24-48) 14 % (24-48) Monocytes (%) (Auto) 5 % (0-9) 4 % (0-9) Eosinophils (%) (Auto) 0 % (0-3) 0 % (0-3) Basophils (%) (Auto) 0 % (0-3) 1 % (0-3) Neutrophils # (Auto) 3.1 x10^3/uL (1.8-7.7) 2.9 x10^3/uL (1.8-7.7) Lymphocytes # (Auto) 0.4 x10^3/uL (1.0-4.8) 0.5 x10^3/uL (1.0-4.8) Monocytes # (Auto) 0.2 x10^3/uL (0.0-1.1) 0.1 x10^3/uL (0.0-1.1) Eosinophils # (Auto) 0.0 x10^3/uL (0.0-0.7) 0.0 x10^3/uL (0.0-0.7) Basophils # (Auto) 0.0 x10^3/uL (0.0-0.2) 0.0 x10^3/uL (0.0-0.2) Prothrombin Time 14.6 SEC (11.7-14.0) Prothromb Time International Ratio 1.2 (0.8-1.1) Activated Partial Thromboplast Time 38 SEC (24-38) Fibrinogen 279 mg/dL (200-440) D-Dimer (Codi) 18.00 ug/mlFEU (0.00-0.50) Sodium Level 135 mmol/L (136-145) 140 mmol/L (136-145) Potassium Level 4.1 mmol/L (3.5-5.1) 4.2 mmol/L (3.5-5.1) Chloride Level 101 mmol/L (98-107) 106 mmol/L (98-107) Carbon Dioxide Level 14 mmol/L (21-32) 16 mmol/L (21-32) Anion Gap 20 (6-14) 18 (6-14) Blood Urea Nitrogen 141 mg/dL (8-26) 141 mg/dL (8-26) Creatinine 6.0 mg/dL (0.7-1.3) 6.4 mg/dL (0.7-1.3) Estimated GFR (Cockcroft-Gault) 9.4 8.7 BUN/Creatinine Ratio 24 (6-20) 22 (6-20) Glucose Level 130 mg/dL (70-99) 102 mg/dL (70-99) Lactic Acid Level 1.0 mmol/L (0.4-2.0) Calcium Level 6.2 mg/dL (8.5-10.1) 5.7 mg/dL (8.5-10.1) Transferrin 227 mg/dL (177-329) Total Bilirubin 0.3 mg/dL (0.2-1.0) 0.3 mg/dL (0.2-1.0) Aspartate Amino Transf (AST/SGOT) 59 U/L (15-37) 66 U/L (15-37) Alanine Aminotransferase (ALT/SGPT) 16 U/L (16-63) 13 U/L (16-63) Alkaline Phosphatase 90 U/L (46-116) 80 U/L (46-116) Creatine Kinase 1237 U/L (39-308) Troponin I Quantitative 0.038 ng/mL (0.000-0.055) C-Reactive Protein, Quantitative 80.6 mg/L (0-3.3) LZ-Ezu-X-Type Natriuretic Peptide 1500 pg/mL (0-124) Total Protein 7.7 g/dL (6.4-8.2) 7.4 g/dL (6.4-8.2) Albumin 3.3 g/dL (3.4-5.0) 3.2 g/dL (3.4-5.0) Albumin/Globulin Ratio 0.8 (1.0-1.7) 0.8 (1.0-1.7) Lipase 504 U/L (73-393) Procalcitonin 0.68 ng/mL (0.00-0.10) Thyroid Stimulating Hormone (TSH) 0.623 uIU/mL (0.358-3.74) O2 Saturation 95 % (92-99) Arterial Blood pH 7.35 (7.35-7.45) Arterial Blood pCO2 at Patient Temp 21 mmHg (35-46) Arterial Blood pO2 at Patient Temp 86 mmHg (65-108) Arterial Blood HCO3 11 mmol/L (21-28) Arterial Blood Base Excess -13 mmol/L (-3-3) FiO2 100% nrb Urine Collection Type Unknown Urine Color Yellow Urine Clarity Clear Urine pH 5.0 (<5.0-8.0) Urine Specific [place] 1.015 (1.000-1.030) Urine Protein 30 mg/dL (NEG-TRACE) Urine Glucose (UA) Negative mg/dL (NEG) Urine Ketones (Stick) Negative mg/dL (NEG) Urine Blood Moderate (NEG) Urine Nitrite Negative (NEG) Urine Bilirubin Negative (NEG) Urine Urobilinogen Dipstick 0.2 mg/dL (0.2 mg/dL) Urine Leukocyte Esterase Negative (NEG) Urine RBC Occ /HPF (0-2) Urine WBC 0 /HPF (0-4) Urine Transitional Epithelial Cells Occ /LPF Urine Bacteria 0 /HPF (0-FEW) Laboratory Tests Test 06/11/20 15:10 06/11/20 16:53 06/11/20 21:50 06/12/20 05:00 White Blood Count 3.8 x10^3/uL (4.0-11.0) 3.6 x10^3/uL (4.0-11.0) Red Blood Count 2.60 x10^6/uL (4.30-5.70) 2.58 x10^6/uL (4.30-5.70) Hemoglobin 7.6 g/dL (13.0-17.5) 7.5 g/dL (13.0-17.5) Hematocrit 22.0 % (39.0-53.0) 22.0 % (39.0-53.0) Mean Corpuscular Volume 85 fL (79-100) 85 fL (79-100) Mean Corpuscular Hemoglobin 29 pg (25-35) 29 pg (25-35) Mean Corpuscular Hemoglobin Concent 34 g/dL (31-37) 34 g/dL (31-37) Red Cell Distribution Width 13.8 % (11.5-14.5) 14.2 % (11.5-14.5) Platelet Count 131 x10^3/uL (140-400) 123 x10^3/uL (140-400) Neutrophils (%) (Auto) 83 % (31-73) 82 % (31-73) Lymphocytes (%) (Auto) 11 % (24-48) 14 % (24-48) Monocytes (%) (Auto) 5 % (0-9) 4 % (0-9) Eosinophils (%) (Auto) 0 % (0-3) 0 % (0-3) Basophils (%) (Auto) 0 % (0-3) 1 % (0-3) Neutrophils # (Auto) 3.1 x10^3/uL (1.8-7.7) 2.9 x10^3/uL (1.8-7.7) Lymphocytes # (Auto) 0.4 x10^3/uL (1.0-4.8) 0.5 x10^3/uL (1.0-4.8) Monocytes # (Auto) 0.2 x10^3/uL (0.0-1.1) 0.1 x10^3/uL (0.0-1.1) Eosinophils # (Auto) 0.0 x10^3/uL (0.0-0.7) 0.0 x10^3/uL (0.0-0.7) Basophils # (Auto) 0.0 x10^3/uL (0.0-0.2) 0.0 x10^3/uL (0.0-0.2) Prothrombin Time 14.6 SEC (11.7-14.0) Prothromb Time International Ratio 1.2 (0.8-1.1) Activated Partial Thromboplast Time 38 SEC (24-38) Fibrinogen 279 mg/dL (200-440) D-Dimer (Codi) 18.00 ug/mlFEU (0.00-0.50) Sodium Level 135 mmol/L (136-145) 140 mmol/L (136-145) Potassium Level 4.1 mmol/L (3.5-5.1) 4.2 mmol/L (3.5-5.1) Chloride Level 101 mmol/L (98-107) 106 mmol/L (98-107) Carbon Dioxide Level 14 mmol/L (21-32) 16 mmol/L (21-32) Anion Gap 20 (6-14) 18 (6-14) Blood Urea Nitrogen 141 mg/dL (8-26) 141 mg/dL (8-26) Creatinine 6.0 mg/dL (0.7-1.3) 6.4 mg/dL (0.7-1.3) Estimated GFR (Cockcroft-Gault) 9.4 8.7 BUN/Creatinine Ratio 24 (6-20) 22 (6-20) Glucose Level 130 mg/dL (70-99) 102 mg/dL (70-99) Lactic Acid Level 1.0 mmol/L (0.4-2.0) Calcium Level 6.2 mg/dL (8.5-10.1) 5.7 mg/dL (8.5-10.1) Transferrin 227 mg/dL (177-329) Total Bilirubin 0.3 mg/dL (0.2-1.0) 0.3 mg/dL (0.2-1.0) Aspartate Amino Transf (AST/SGOT) 59 U/L (15-37) 66 U/L (15-37) Alanine Aminotransferase (ALT/SGPT) 16 U/L (16-63) 13 U/L (16-63) Alkaline Phosphatase 90 U/L (46-116) 80 U/L (46-116) Creatine Kinase 1237 U/L (39-308) Troponin I Quantitative 0.038 ng/mL (0.000-0.055) C-Reactive Protein, Quantitative 80.6 mg/L (0-3.3) DW-Qqt-J-Type Natriuretic Peptide 1500 pg/mL (0-124) Total Protein 7.7 g/dL (6.4-8.2) 7.4 g/dL (6.4-8.2) Albumin 3.3 g/dL (3.4-5.0) 3.2 g/dL (3.4-5.0) Albumin/Globulin Ratio 0.8 (1.0-1.7) 0.8 (1.0-1.7) Lipase 504 U/L (73-393) Procalcitonin 0.68 ng/mL (0.00-0.10) Thyroid Stimulating Hormone (TSH) 0.623 uIU/mL (0.358-3.74) O2 Saturation 95 % (92-99) Arterial Blood pH 7.35 (7.35-7.45) Arterial Blood pCO2 at Patient Temp 21 mmHg (35-46) Arterial Blood pO2 at Patient Temp 86 mmHg (65-108) Arterial Blood HCO3 11 mmol/L (21-28) Arterial Blood Base Excess -13 mmol/L (-3-3) FiO2 100% nrb Urine Collection Type Unknown Urine Color Yellow Urine Clarity Clear Urine pH 5.0 (<5.0-8.0) Urine Specific [place] 1.015 (1.000-1.030) Urine Protein 30 mg/dL (NEG-TRACE) Urine Glucose (UA) Negative mg/dL (NEG) Urine Ketones (Stick) Negative mg/dL (NEG) Urine Blood Moderate (NEG) Urine Nitrite Negative (NEG) Urine Bilirubin Negative (NEG) Urine Urobilinogen Dipstick 0.2 mg/dL (0.2 mg/dL) Urine Leukocyte Esterase Negative (NEG) Urine RBC Occ /HPF (0-2) Urine WBC 0 /HPF (0-4) Urine Transitional Epithelial Cells Occ /LPF Urine Bacteria 0 /HPF (0-FEW) Medications Current Medications Piperacillin Sod/ Tazobactam Sod 4.5 gm/Sodium Chloride 100 ml @ 200 mls/hr 1X ONCE IV Last administered on 06/11/20at 15:24; Start 06/11/20 at 15:30; Stop 06/11/20 at 15:59; Status DC Sodium Chloride 1,000 ml @ 1,000 mls/hr 1X ONCE IV Last administered on 06/11/20at 15:23; Start 06/11/20 at 15:00; Stop 06/11/20 at 15:59; Status DC Acetaminophen (Tylenol) 1,000 mg 1X ONCE PO Last administered on 06/11/20at 15:23; Start 06/11/20 at 15:30; Stop 06/11/20 at 15:31; Status DC Ondansetron HCl (Zofran) 4 mg PRN Q8HRS PRN IV NAUSEA/VOMITING; Start 06/11/20 at 16:15; Stop 06/12/20 at 16:14 Sodium Chloride 1,000 ml @ 125 mls/hr Q8H IV ; Start 06/11/20 at 16:07; Stop 06/11/20 at 18:50; Status DC Piperacillin Sod/ Tazobactam Sod (Zosyn Per Pharmacy) 1 each PRN DAILY PRN MC SEE COMMENTS; Start 06/11/20 at 18:00 Acetaminophen (Tylenol) 650 mg PRN Q6HRS PRN PO Headaches, Temp > 101.5'; Start 06/11/20 at 18:00 Famotidine (Pepcid Vial) 20 mg DAILY IVP Last administered on 06/12/20at 08:06; Start 06/11/20 at 21:00 Info (Icu Electrolyte Protocol) 1 ea DAILY MC ; Start 06/12/20 at 09:00 Heparin Sodium (Porcine) (Heparin Sodium) 5,000 unit Q8HRS SQ Last administered on 06/12/20at 05:37; Start 06/11/20 at 18:30 Sodium Chloride (Normal Saline Flush) 3 ml QSHIFT PRN IV AFTER MEDS AND BLOOD DRAWS; Start 06/11/20 at 18:00 Sodium Chloride 1,000 ml @ 100 mls/hr Q10H IV Last administered on 06/11/20at 20:35; Start 06/11/20 at 17:57 Docusate Sodium (Colace) 100 mg BID PO ; Start 06/11/20 at 21:00 Bisacodyl (Dulcolax Supp) 10 mg PRN DAILY PRN MA CONSTIPATION; Start 06/11/20 at 18:00 Ascorbic Acid (Vitamin C) 500 mg DAILY PO ; Start 06/12/20 at 09:00 Carbidopa/Levodopa (Sinemet 25/100) 1 tab QID PO ; Start 06/11/20 at 18:15 Multivitamins (Thera M Plus) 1 tab DAILY PO ; Start 06/12/20 at 09:00 Mupirocin (Bactroban) 1 oh BID NS Last administered on 06/12/20at 08:07; Start 06/11/20 at 21:00 Quetiapine Fumarate (SEROquel) 25 mg QHS PO ; Start 06/11/20 at 21:00 Ropinirole HCl (Requip) 4 mg BID PO ; Start 06/11/20 at 21:00 Piperacillin Sod/ Tazobactam Sod 2.25 gm/Sodium Chloride 50 ml @ 100 mls/hr Q6HRS IV Last administered on 06/12/20at 06:51; Start 06/11/20 at 18:30 Calcium Chloride 2000 mg/Sodium Chloride 120 ml @ 240 mls/hr 1X ONCE IV Last administered on 06/12/20at 07:39; Start 06/12/20 at 07:00; Stop 06/12/20 at 07:29; Status DC Active Scripts Active Keflex (Cephalexin) 500 Mg Capsule 1 Cap PO TID Vitamin C (Ascorbic Acid) 500 Mg Tablet 500 Mg PO DAILY Mupirocin Ointment (Mupirocin) 22 Gm Oint...g. 1 Oh NS BID Thera-M Tablet (Multivits,Ca,Minerals/Iron/Fa) 1 Each Tablet 1 Tab PO DAILY Reported Seroquel (Quetiapine Fumarate) 25 Mg Tablet 1 Tab PO QHS Ropinirole Hcl 4 Mg Tablet 4 Mg PO BID Atorvastatin Calcium 20 Mg Tablet 20 Mg PO HS Sinemet 25-100 Mg Tablet (Carbidopa/Levodopa) 1 Each Tablet 1 Tab PO QID PRN Vitals/I & O Vital Sign - Last 24 Hours 06/11/20 06/11/20 06/11/20 06/11/20 14:52 15:33 16:31 16:34 Temp 100.8 100.8 Pulse 88 86 84 84 Resp 24 B/P (MAP) 122/57 (78) 122/57 (78) 124/68 (86) 121/66 (84) Pulse Ox 96 94 85 95 O2 Delivery Nasal Cannula NonRebreather Mask NonRebreather Mask NonRebreather Mask O2 Flow Rate 6.0 06/11/20 06/11/20 06/11/20 06/11/20 17:12 17:34 18:15 18:30 Temp 99.6 99.6 Pulse 87 79 82 Resp B/P (MAP) 129/57 (81) 131/72 (91) 108/65 (79) Pulse Ox 94 92 98 98 O2 Delivery NonRebreather Mask NonRebreather Mask NonRebreather Mask NonRebreather Mask O2 Flow Rate 15.0 06/11/20 06/11/20 06/11/20 06/11/20 19:00 19:30 20:00 20:00 Temp 98.6 98.6 Pulse 82 78 82 Resp B/P (MAP) 105/51 (69) 113/61 (78) 103/57 (72) Pulse Ox 98 98 96 O2 Delivery NonRebreather Mask NonRebreather Mask Non-Rebreather NonRebreather Mask O2 Flow Rate 15.0 06/11/20 06/11/20 06/12/20 06/12/20 21:00 22:00 00:00 00:00 Pulse 74 80 84 Resp B/P (MAP) 106/67 (80) 119/78 (92) Pulse Ox 91 98 94 O2 Delivery Nasal Cannula NonRebreather Mask NonRebreather Mask Non-Rebreather O2 Flow Rate 6.0 15.0 06/12/20 06/12/20 06/12/20 06/12/20 01:00 01:30 02:00 03:00 Temp 98.8 98.8 Pulse 80 82 80 84 Resp 20 B/P (MAP) 131/68 (89) 130/69 (89) 115/65 (82) Pulse Ox 93 91 94 99 O2 Delivery NonRebreather Mask NonRebreather Mask NonRebreather Mask NonRebreather Mask 06/12/20 06/12/20 06/12/20 06/12/20 04:00 04:00 05:00 06:00 Temp 98.6 98.6 Pulse 82 86 86 Resp 24 B/P (MAP) 117/63 (81) 125/75 (92) 136/73 (94) Pulse Ox 99 100 97 O2 Delivery Non-Rebreather NonRebreather Mask NonRebreather Mask NonRebreather Mask O2 Flow Rate 15.0 06/12/20 06/12/20 06/12/20 06/12/20 07:00 08:00 08:00 09:00 Temp 98.5 98.5 Pulse 86 84 90 Resp 22 B/P (MAP) 133/69 (90) 139/72 (94) 144/72 (96) Pulse Ox 99 93 97 O2 Delivery NonRebreather Mask NonRebreather Mask Non-Rebreather NonRebreather Mask O2 Flow Rate 15.0 15.0 15.0 15.0 Intake and Output 06/11/20 06/11/20 06/12/20 15:00 23:00 07:00 Intake Total 1100 ml 500 ml Output Total 680 ml 425 ml Balance 420 ml 75 ml Justicifation of Admission Dx: Justifications for Admission: Justification of Admission Dx: No MONICA SNIDER MD Jun 12, 2020 09:37
--- NOTE | 2020-06-12 12:15 | NUR ---
Pt requesting food and water. A bedside screen was initiated and pt began to cough with small sips of water. Pt will remain NPO and speech will evaluate.
--- NOTE | 2020-06-12 14:09 | NUR ---
unable to leave message for new consult for Oncology.
[2020-06-12] MEDS: AMINO AC 3%/ELECTROLYTE/GLYCER 1,000 ML IV SCH (14:19)
--- NOTE | 2020-06-12 14:24 | PDOC2 ---
CONSULT Date of Consult Date of Consult DATE: 06/12/20 TIME: 14:09 Reason for Consult Reason for Consult: OFELIA Source Source: Chart review History of Present Illness Reason for Visit: Patient is a 69 year old CM who presented to the ER with feve and altered mental status. EMS reported a temperature of 101. He was also found to be hypoxic requiring oxygen. He denies any shortness of breath and cough . Patient denies any pain at this time. Patient is from a prison with known COVID patients. Currently denies any Urinary complaints, No CP or SOB. No N/V/D . Has Good UOP He doesnt have any family . On reviewing [facility] records Cr 2.6 in Aug 2019, interval labs not available . Past Medical History Past Medical History Past Medical History: Dementia, Other Additional Past Medical Histor: parkinson's, pressure ulcer Left hip Additional Past Surgical Histo: pt is poor historian, + midline chest surgical scar (old) CENTRAL NERVOUS SYSTEM: Other Musculoskeletal: Osteoarthritis Past Surgical History Past Surgical History: No pertinent history Family History Family History: Alzheimer's Disease, Hypertension Social History No ALCOHOL: none Drugs: None Current Problem List Problem List Problems Medical Problems: (1) Profound anemia Status: Acute (2) Renal failure Status: Acute (3) Respiratory failure Status: Acute (4) Suspected COVID-19 virus infection Status: Acute Current Medications Current Medications Current Medications Piperacillin Sod/ Tazobactam Sod 4.5 gm/Sodium Chloride 100 ml @ 200 mls/hr 1X ONCE IV Last administered on 06/11/20at 15:24; Start 06/11/20 at 15:30; Stop 06/11/20 at 15:59; Status DC Sodium Chloride 1,000 ml @ 1,000 mls/hr 1X ONCE IV Last administered on 06/11/20at 15:23; Start 06/11/20 at 15:00; Stop 06/11/20 at 15:59; Status DC Acetaminophen (Tylenol) 1,000 mg 1X ONCE PO Last administered on 06/11/20at 15:23; Start 06/11/20 at 15:30; Stop 06/11/20 at 15:31; Status DC Ondansetron HCl (Zofran) 4 mg PRN Q8HRS PRN IV NAUSEA/VOMITING; Start 06/11/20 at 16:15; Stop 7/25/20 at 16:14 Sodium Chloride 1,000 ml @ 125 mls/hr Q8H IV ; Start 06/11/20 at 16:07; Stop 06/11/20 at 18:50; Status DC Piperacillin Sod/ Tazobactam Sod (Zosyn Per Pharmacy) 1 each PRN DAILY PRN MC SEE COMMENTS; Start 06/11/20 at 18:00 Acetaminophen (Tylenol) 650 mg PRN Q6HRS PRN PO Headaches, Temp > 101.5'; Start 06/11/20 at 18:00 Famotidine (Pepcid Vial) 20 mg DAILY IVP Last administered on 06/12/20at 08:06; Start 06/11/20 at 21:00 Info (Icu Electrolyte Protocol) 1 ea DAILY MC ; Start 06/12/20 at 09:00 Heparin Sodium (Porcine) (Heparin Sodium) 5,000 unit Q8HRS SQ Last administered on 06/12/20at 05:37; Start 06/11/20 at 18:30 Sodium Chloride (Normal Saline Flush) 3 ml QSHIFT PRN IV AFTER MEDS AND BLOOD DRAWS; Start 06/11/20 at 18:00 Sodium Chloride 1,000 ml @ 100 mls/hr Q10H IV Last administered on 06/11/20at 20:35; Start 06/11/20 at 17:57 Docusate Sodium (Colace) 100 mg BID PO ; Start 06/11/20 at 21:00 Bisacodyl (Dulcolax Supp) 10 mg PRN DAILY PRN SC CONSTIPATION; Start 06/11/20 at 18:00 Ascorbic Acid (Vitamin C) 500 mg DAILY PO ; Start 06/12/20 at 09:00 Carbidopa/Levodopa (Sinemet 25/100) 1 tab QID PO ; Start 06/11/20 at 18:15 Multivitamins (Thera M Plus) 1 tab DAILY PO ; Start 06/12/20 at 09:00 Mupirocin (Bactroban) 1 oh BID NS Last administered on 06/12/20at 08:07; Start 06/11/20 at 21:00 Quetiapine Fumarate (SEROquel) 25 mg QHS PO ; Start 06/11/20 at 21:00 Ropinirole HCl (Requip) 4 mg BID PO ; Start 06/11/20 at 21:00 Piperacillin Sod/ Tazobactam Sod 2.25 gm/Sodium Chloride 50 ml @ 100 mls/hr Q6HRS IV Last administered on 06/12/20at 12:07; Start 06/11/20 at 18:30 Calcium Chloride 2000 mg/Sodium Chloride 120 ml @ 240 mls/hr 1X ONCE IV Last administered on 06/12/20at 07:39; Start 06/12/20 at 07:00; Stop 06/12/20 at 07:29; Status DC Active Scripts Active Keflex (Cephalexin) 500 Mg Capsule 1 Cap PO TID Vitamin C (Ascorbic Acid) 500 Mg Tablet 500 Mg PO DAILY Mupirocin Ointment (Mupirocin) 22 Gm Oint...g. 1 Oh NS BID Thera-M Tablet (Multivits,Ca,Minerals/Iron/Fa) 1 Each Tablet 1 Tab PO DAILY Reported Seroquel (Quetiapine Fumarate) 25 Mg Tablet 1 Tab PO QHS Ropinirole Hcl 4 Mg Tablet 4 Mg PO BID Atorvastatin Calcium 20 Mg Tablet 20 Mg PO HS Sinemet 25-100 Mg Tablet (Carbidopa/Levodopa) 1 Each Tablet 1 Tab PO QID PRN Allergies Allergies: Coded Allergies: No Known Drug Allergies (Unverified , 07/28/19) ROS Review of System As per HPI, Pt poor Historian, rest ROS is negative Physical Exam Physical Exam GEN: NAD , Awake HEENT: Atraumatic, OM moist, Non rebreather Neck supple Lungs Non labored, Decreased ant CV S1S2 Abdomen: Soft, nt Extremities: No cyanosis, No edema Catalan + Skin No Rash Neuro: Cranial nerves 3-12 NL Vital Signs Vital Signs Date Time Temp Pulse Resp B/P (MAP) Pulse Ox O2 Delivery O2 Flow Rate FiO2 06/12/20 14:00 94 32 145/79 (101) 97 NonRebreather Mask 15.0 06/12/20 12:00 99.2 99.2 Assessment & Plan OFELIA - Suspect ATN, baseline Unknown Cr was 2.6 in Aug 2016, No interval labs available, ? Progression vs OFELIA, UA unremarkable K stable , bicarb low, stable , IVF, Renal US , supportive care , strict I/O, avoid Nephrotoxins If No improvement or change in Clinical status will need FINISHING RANGE SUPERVISOR, Osiel RN Per Pt's legal Guardian if patient's condition deteriorates to where he needs to be placed on comfort measures/care, she will need to obtain a court order for that. AcHypoxic resp failure- On Non rebreather. 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 Pancytopenia- per Primary Parkinsonism Labs Labs Laboratory Tests Test 06/11/20 15:10 06/11/20 16:53 06/11/20 21:50 06/12/20 05:00 White Blood Count 3.8 x10^3/uL (4.0-11.0) 3.6 x10^3/uL (4.0-11.0) Red Blood Count 2.60 x10^6/uL (4.30-5.70) 2.58 x10^6/uL (4.30-5.70) Hemoglobin 7.6 g/dL (13.0-17.5) 7.5 g/dL (13.0-17.5) Hematocrit 22.0 % (39.0-53.0) 22.0 % (39.0-53.0) Mean Corpuscular Volume 85 fL (79-100) 85 fL (79-100) Mean Corpuscular Hemoglobin 29 pg (25-35) 29 pg (25-35) Mean Corpuscular Hemoglobin Concent 34 g/dL (31-37) 34 g/dL (31-37) Red Cell Distribution Width 13.8 % (11.5-14.5) 14.2 % (11.5-14.5) Platelet Count 131 x10^3/uL (140-400) 123 x10^3/uL (140-400) Neutrophils (%) (Auto) 83 % (31-73) 82 % (31-73) Lymphocytes (%) (Auto) 11 % (24-48) 14 % (24-48) Monocytes (%) (Auto) 5 % (0-9) 4 % (0-9) Eosinophils (%) (Auto) 0 % (0-3) 0 % (0-3) Basophils (%) (Auto) 0 % (0-3) 1 % (0-3) Neutrophils # (Auto) 3.1 x10^3/uL (1.8-7.7) 2.9 x10^3/uL (1.8-7.7) Lymphocytes # (Auto) 0.4 x10^3/uL (1.0-4.8) 0.5 x10^3/uL (1.0-4.8) Monocytes # (Auto) 0.2 x10^3/uL (0.0-1.1) 0.1 x10^3/uL (0.0-1.1) Eosinophils # (Auto) 0.0 x10^3/uL (0.0-0.7) 0.0 x10^3/uL (0.0-0.7) Basophils # (Auto) 0.0 x10^3/uL (0.0-0.2) 0.0 x10^3/uL (0.0-0.2) Prothrombin Time 14.6 SEC (11.7-14.0) Prothromb Time International Ratio 1.2 (0.8-1.1) Activated Partial Thromboplast Time 38 SEC (24-38) Fibrinogen 279 mg/dL (200-440) D-Dimer (Codi) 18.00 ug/mlFEU (0.00-0.50) Sodium Level 135 mmol/L (136-145) 140 mmol/L (136-145) Potassium Level 4.1 mmol/L (3.5-5.1) 4.2 mmol/L (3.5-5.1) Chloride Level 101 mmol/L (98-107) 106 mmol/L (98-107) Carbon Dioxide Level 14 mmol/L (21-32) 16 mmol/L (21-32) Anion Gap 20 (6-14) 18 (6-14) Blood Urea Nitrogen 141 mg/dL (8-26) 141 mg/dL (8-26) Creatinine 6.0 mg/dL (0.7-1.3) 6.4 mg/dL (0.7-1.3) Estimated GFR (Cockcroft-Gault) 9.4 8.7 BUN/Creatinine Ratio 24 (6-20) 22 (6-20) Glucose Level 130 mg/dL (70-99) 102 mg/dL (70-99) Lactic Acid Level 1.0 mmol/L (0.4-2.0) Calcium Level 6.2 mg/dL (8.5-10.1) 5.7 mg/dL (8.5-10.1) Transferrin 227 mg/dL (177-329) Total Bilirubin 0.3 mg/dL (0.2-1.0) 0.3 mg/dL (0.2-1.0) Aspartate Amino Transf (AST/SGOT) 59 U/L (15-37) 66 U/L (15-37) Alanine Aminotransferase (ALT/SGPT) 16 U/L (16-63) 13 U/L (16-63) Alkaline Phosphatase 90 U/L (46-116) 80 U/L (46-116) Creatine Kinase 1237 U/L (39-308) Troponin I Quantitative 0.038 ng/mL (0.000-0.055) C-Reactive Protein, Quantitative 80.6 mg/L (0-3.3) FG-Sga-S-Type Natriuretic Peptide 1500 pg/mL (0-124) Total Protein 7.7 g/dL (6.4-8.2) 7.4 g/dL (6.4-8.2) Albumin 3.3 g/dL (3.4-5.0) 3.2 g/dL (3.4-5.0) Albumin/Globulin Ratio 0.8 (1.0-1.7) 0.8 (1.0-1.7) Lipase 504 U/L (73-393) Procalcitonin 0.68 ng/mL (0.00-0.10) Thyroid Stimulating Hormone (TSH) 0.623 uIU/mL (0.358-3.74) O2 Saturation 95 % (92-99) Arterial Blood pH 7.35 (7.35-7.45) Arterial Blood pCO2 at Patient Temp 21 mmHg (35-46) Arterial Blood pO2 at Patient Temp 86 mmHg (65-108) Arterial Blood HCO3 11 mmol/L (21-28) Arterial Blood Base Excess -13 mmol/L (-3-3) FiO2 100% nrb Urine Collection Type Unknown Urine Color Yellow Urine Clarity Clear Urine pH 5.0 (<5.0-8.0) Urine Specific Crewe 1.015 (1.000-1.030) Urine Protein 30 mg/dL (NEG-TRACE) Urine Glucose (UA) Negative mg/dL (NEG) Urine Ketones (Stick) Negative mg/dL (NEG) Urine Blood Moderate (NEG) Urine Nitrite Negative (NEG) Urine Bilirubin Negative (NEG) Urine Urobilinogen Dipstick 0.2 mg/dL (0.2 mg/dL) Urine Leukocyte Esterase Negative (NEG) Urine RBC Occ /HPF (0-2) Urine WBC 0 /HPF (0-4) Urine Transitional Epithelial Cells Occ /LPF Urine Bacteria 0 /HPF (0-FEW) Laboratory Tests Test 06/11/20 15:10 06/11/20 16:53 06/11/20 21:50 06/12/20 05:00 White Blood Count 3.8 x10^3/uL (4.0-11.0) 3.6 x10^3/uL (4.0-11.0) Red Blood Count 2.60 x10^6/uL (4.30-5.70) 2.58 x10^6/uL (4.30-5.70) Hemoglobin 7.6 g/dL (13.0-17.5) 7.5 g/dL (13.0-17.5) Hematocrit 22.0 % (39.0-53.0) 22.0 % (39.0-53.0) Mean Corpuscular Volume 85 fL (79-100) 85 fL (79-100) Mean Corpuscular Hemoglobin 29 pg (25-35) 29 pg (25-35) Mean Corpuscular Hemoglobin Concent 34 g/dL (31-37) 34 g/dL (31-37) Red Cell Distribution Width 13.8 % (11.5-14.5) 14.2 % (11.5-14.5) Platelet Count 131 x10^3/uL (140-400) 123 x10^3/uL (140-400) Neutrophils (%) (Auto) 83 % (31-73) 82 % (31-73) Lymphocytes (%) (Auto) 11 % (24-48) 14 % (24-48) Monocytes (%) (Auto) 5 % (0-9) 4 % (0-9) Eosinophils (%) (Auto) 0 % (0-3) 0 % (0-3) Basophils (%) (Auto) 0 % (0-3) 1 % (0-3) Neutrophils # (Auto) 3.1 x10^3/uL (1.8-7.7) 2.9 x10^3/uL (1.8-7.7) Lymphocytes # (Auto) 0.4 x10^3/uL (1.0-4.8) 0.5 x10^3/uL (1.0-4.8) Monocytes # (Auto) 0.2 x10^3/uL (0.0-1.1) 0.1 x10^3/uL (0.0-1.1) Eosinophils # (Auto) 0.0 x10^3/uL (0.0-0.7) 0.0 x10^3/uL (0.0-0.7) Basophils # (Auto) 0.0 x10^3/uL (0.0-0.2) 0.0 x10^3/uL (0.0-0.2) Prothrombin Time 14.6 SEC (11.7-14.0) Prothromb Time International Ratio 1.2 (0.8-1.1) Activated Partial Thromboplast Time 38 SEC (24-38) Fibrinogen 279 mg/dL (200-440) D-Dimer (Codi) 18.00 ug/mlFEU (0.00-0.50) Sodium Level 135 mmol/L (136-145) 140 mmol/L (136-145) Potassium Level 4.1 mmol/L (3.5-5.1) 4.2 mmol/L (3.5-5.1) Chloride Level 101 mmol/L (98-107) 106 mmol/L (98-107) Carbon Dioxide Level 14 mmol/L (21-32) 16 mmol/L (21-32) Anion Gap 20 (6-14) 18 (6-14) Blood Urea Nitrogen 141 mg/dL (8-26) 141 mg/dL (8-26) Creatinine 6.0 mg/dL (0.7-1.3) 6.4 mg/dL (0.7-1.3) Estimated GFR (Cockcroft-Gault) 9.4 8.7 BUN/Creatinine Ratio 24 (6-20) 22 (6-20) Glucose Level 130 mg/dL (70-99) 102 mg/dL (70-99) Lactic Acid Level 1.0 mmol/L (0.4-2.0) Calcium Level 6.2 mg/dL (8.5-10.1) 5.7 mg/dL (8.5-10.1) Transferrin 227 mg/dL (177-329) Total Bilirubin 0.3 mg/dL (0.2-1.0) 0.3 mg/dL (0.2-1.0) Aspartate Amino Transf (AST/SGOT) 59 U/L (15-37) 66 U/L (15-37) Alanine Aminotransferase (ALT/SGPT) 16 U/L (16-63) 13 U/L (16-63) Alkaline Phosphatase 90 U/L (46-116) 80 U/L (46-116) Creatine Kinase 1237 U/L (39-308) Troponin I Quantitative 0.038 ng/mL (0.000-0.055) C-Reactive Protein, Quantitative 80.6 mg/L (0-3.3) DX-Guc-P-Type Natriuretic Peptide 1500 pg/mL (0-124) Total Protein 7.7 g/dL (6.4-8.2) 7.4 g/dL (6.4-8.2) Albumin 3.3 g/dL (3.4-5.0) 3.2 g/dL (3.4-5.0) Albumin/Globulin Ratio 0.8 (1.0-1.7) 0.8 (1.0-1.7) Lipase 504 U/L (73-393) Procalcitonin 0.68 ng/mL (0.00-0.10) Thyroid Stimulating Hormone (TSH) 0.623 uIU/mL (0.358-3.74) O2 Saturation 95 % (92-99) Arterial Blood pH 7.35 (7.35-7.45) Arterial Blood pCO2 at Patient Temp 21 mmHg (35-46) Arterial Blood pO2 at Patient Temp 86 mmHg (65-108) Arterial Blood HCO3 11 mmol/L (21-28) Arterial Blood Base Excess -13 mmol/L (-3-3) FiO2 100% nrb Urine Collection Type Unknown Urine Color Yellow Urine Clarity Clear Urine pH 5.0 (<5.0-8.0) Urine Specific Crewe 1.015 (1.000-1.030) Urine Protein 30 mg/dL (NEG-TRACE) Urine Glucose (UA) Negative mg/dL (NEG) Urine Ketones (Stick) Negative mg/dL (NEG) Urine Blood Moderate (NEG) Urine Nitrite Negative (NEG) Urine Bilirubin Negative (NEG) Urine Urobilinogen Dipstick 0.2 mg/dL (0.2 mg/dL) Urine Leukocyte Esterase Negative (NEG) Urine RBC Occ /HPF (0-2) Urine WBC 0 /HPF (0-4) Urine Transitional Epithelial Cells Occ /LPF Urine Bacteria 0 /HPF (0-FEW) Review All relevant outside records, renal labs, imaging studies, telemetry/EKG's were reviewed. Images Images . CxR-- Ill-defined bibasilar opacities, can be seen with viral pneumonia. 2. Unchanged widening of the superior mediastinum, may relate to tortuous thoracic aortic aneurysm. Recommend comparison with prior cross sectional imaging. If prior imaging not available, CT can definitively evaluate. JANES DE DIOS MD Jun 12, 2020 14:24
[2020-06-12] MEDS ORDERED: dilTIAZem IV PUSH 25 MG/5 ML VIAL IVP ONE (18:00)
[2020-06-12] MEDS ORDERED: DILTIAZEM HCL 125 MG in IV NORMAL SALINE 100ML 100 ML IV PRN (18:00)
[2020-06-12] MEDS ORDERED: MAGNESIUM SULFATE 2GM 50 ML IV ONE (18:00)
[2020-06-12] MEDS ORDERED: MORPHINE SULFATE 2 MG/ML VIAL. IVP ONE (18:15)
[2020-06-12] MEDS ORDERED: FUROSEMIDE 40 MG/4 ML VIAL. IVP ONE (18:30)
[2020-06-12] MEDS ORDERED: ACETAMINOPHEN 650 MG SUPP.RECT. PR PRN (18:45)
--- NOTE | 2020-06-12 18:46 | NUR ---
Pt switched into Afib RVR this afternoon. Cardiology consulted and called and orders were received to give Cardizem 5 and then start a cardizem gtt. Replace magnesium 2grams. Pt RR 30-40, labored, lethargic. Dr. Maddi gutierrez and orders were received to give Lasix 40mg x1 and start pt on Vapotherm. Pt started on Vapotherm and currently sating 90%. Will continue to monitor.
--- NOTE | 2020-06-12 18:51 | NUR ---
Per Dr. Linda, if patient does not keep saturation up with the Vapotherm-- Intubate pt. Will pass on to night patrol inspector RN.
[2020-06-12] MEDS ORDERED: STERILE WATER for RESP 1,000 ML BAG. INH PRN (19:00)
[2020-06-12 20:50] LABS: BASE EXCESS ABG -14 mmol/L (-3-3); CORRECTED PCO2 ABG 18 mmHg; CORRECTED PH ABG 7.35; CORRECTED PO2 ABG 66 mmHg; HCO3 ABG 10 mmol/L (21-28); PO2 ABG 56 mmHg (65-108); SAT O2 ABG 86 % (92-99)
[2020-06-12] MEDS: QUEtiapine 25 MG TABLET. PO SCH (21:00)
[2020-06-12 21:23] LABS: PCO2 ABG 16 mmHg (35-46)
[2020-06-12 21:25] LABS: FIO2 ABG 100
--- NOTE | 2020-06-12 23:20 | NUR ---
Pt's legal guardian called for update on patient. Explained that pt is now on vapotherm since early evening, for oxygen supply and is currently stable sats 100% and other vitals stable at this time. She asked if patient was positive for covid 19 and asked other questions on patient's condition, all questions were answered, and she denied further concerns at this time.
[2020-06-13] VITALS (16 sets, daily range): BP systolic 85–140; BP diastolic 52–76
[2020-06-13] MEDS: AMINO AC 3%/ELECTROLYTE/GLYCER 1,000 ML IV SCH (02:52)
[2020-06-13 05:21] LABS: BASO % 1 % (0-3); EOS % 0 % (0-3); HEMATOCRIT 23.9 % (39.0-53.0); HEMOGLOBIN 7.9 g/dL (13.0-17.5); LYMPH # 0.5 x10^3/uL (1.0-4.8); LYMPH % 14 % (24-48); MEAN CORPUSCULAR HEMOGLOBIN 29 pg (25-35); MEAN CORPUSCULAR HGB CONC 33 g/dL (31-37); MEAN CORPUSCULAR VOLUME 87 fL (79-100); MONO # 0.1 x10^3/uL (0.0-1.1); MONO % 3 % (0-9); NEUT # 2.8 x10^3/uL (1.8-7.7); NEUT % 82 % (31-73); PLATELET COUNT 137 x10^3/uL (140-400); RED BLOOD COUNT 2.75 x10^6/uL (4.30-5.70); RED CELL DISTRIBUTION WIDTH 14.3 % (11.5-14.5); WHITE BLOOD COUNT 3.4 x10^3/uL (4.0-11.0)
[2020-06-13] MEDS: PIPERACILLIN/TAZOBACTAM 2.25 GM in IV NORMAL SALINE 50ML 50 ML IV SCH (05:22)
[2020-06-13] MEDS: HEPARIN for SUB-Q USE 5,000 UNIT/ML VIAL. SQ SCH (05:24)
[2020-06-13 05:47] LABS: ALBUMIN 2.9 g/dL (3.4-5.0); ALBUMIN/GLOBULIN RATIO 0.7 (1.0-1.7); CREATININE 7.9 mg/dL (0.7-1.3); GFR 6.8; POTASSIUM 4.5 mmol/L (3.5-5.1); TOTAL BILIRUBIN 0.4 mg/dL (0.2-1.0); TOTAL PROTEIN 7.2 g/dL (6.4-8.2)
[2020-06-13] MEDS ORDERED: SODIUM BICARBONATE VIAL 150 MEQ in IV DEXTROSE 5% 1,000 ML IV ONE (06:30)
--- NOTE | 2020-06-13 07:52 | PDOC ---
PROGRESS NOTES History of Present Illness History of Present Illness VTE Prophylaxis Ordered VTE Prophylaxis Devices: No VTE Pharmacological Prophylaxi: Yes Assessment/Plan Assessment/Plan Impression: 1. acute Hypoxic respiratory failure 2. highly suspect for covid-19 pneumonia 3. Ill-defined bibasilar opacities, can be seen with viral pneumonia. on cxr 06/11 4. ACUTE RENAL INJURY 5. Parkinson's disease, advanced 6. rhabdomyolysis 7. HYPOCALCEMIA, DEFER TO NEPHROLOGY 8. METABOLIC ACIDOSIS 9. THROMBOCYTOPENIA 10. microhematuria plan admit icu bed o2 support pulmonary consult Nephrology consult dvt prophylaxis SQ HEPARIN Q 8 HRS UNLESS HEMATOLOGY disagrees BLOOD CULTURE IV FLUID SUPPORT PER NEPHROLOGY iv pepsid 20mg bid ID CONSULT HEME CONSULT renal sono 06/13 code called undergoing due to agonal respirations , pending DNR STATUS DPOA ( [employer] Cheyenne Gomez). Explained prognosis. She agrees with present care. I and dr ruiz recommended no intubation/ CPR. She agrees .She needs in writing from two physicians stating this would be in his best interest. Will email document today i believe it is patients best interest for DNR STATUS D/W NURSING IN ICU 11:10 AM CRITICALLY ILL, POOR PROGNOSIS 34 MIN CC TIME Vitals Vitals Vital Signs Date Time Temp Pulse Resp B/P (MAP) Pulse Ox O2 Delivery O2 Flow Rate FiO2 06/13/20 07:00 89 32 85/65 (72) 95 Vapotherm 40.0 06/13/20 05:00 100.0 100.0 Physical Exam Physical Exam HENT: Normocephalic, atraumatic, no trismus, mild dry oral mucosa Eyes: PERRLA, EOMI, conjunctiva normal, no discharge. [] Neck: Normal range of motion, no tenderness, supple, no stridor. [] Cardiovascular:Heart rate regular rhythm, no murmur [] Lungs & Thorax: Diminished breath sounds with scattered rhonchi Abdomen: soft, no tenderness, no masses, no pulsatile masses. [] Skin: Warm, dry, pale Back: No tenderness, no CVA tenderness. [] Extremities: No tenderness, no cyanosis, no clubbing, ROM intact, no edema. [] Neurologic: Alert and and oriented to year but confused exact date., Generalized weakness General: ON vent HEENT: Atraumatic Abdomen: Soft Rectal Exam: not examined PELVIC: Examination not indicated General: Cooperative, mild distress Abdomen: Soft Extremities: No cyanosis Labs LABS EXAM: CHEST ONE VIEW. HISTORY: Line placement. COMPARISON: 06/11/2020. FINDINGS: A frontal view of the chest is obtained. A right internal jugular hemodialysis catheter has its tip in the right atrium. There are changes of coronary artery bypass grafting. The aortic arch appears very tortuous and ectatic, consistent with a thoracic aortic aneurysm. The silhouette is stable. Mild basilar hazy opacities is mild pulmonary edema. There is no pneumothorax or clear pleural effusion. The heart is not enlarged. IMPRESSION: 1. Correlate for mild pulmonary edema. 2. 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 Correlate for a known diagnosis. Electronically signed by: Noemi Martel MD (06/13/2020 10:53 AM) [facility] DICTATED and SIGNED BY: NAKIA MARTEL MD DATE: 06/13/20 105 Laboratory Tests Test 06/12/20 13:56 06/12/20 20:45 06/12/20 21:25 06/13/20 05:00 Red Blood Count 2.71 x10^6/uL (4.30-5.70) 2.75 x10^6/uL (4.30-5.70) Absolute Reticulocyte Count 0.033 x10^6/uL (0.020-0.120) Percent Reticulocyte Count 1.2 % (0.5-2.3) Immature Reticulocyte Fraction 0.24 (0.20-0.60) Potassium Level 4.1 mmol/L (3.5-5.1) 4.5 mmol/L (3.5-5.1) Calcium Level 7.1 mg/dL (8.5-10.1) 7.0 mg/dL (8.5-10.1) Magnesium Level 0.9 mg/dL (1.8-2.4) 1.7 mg/dL (1.8-2.4) 1.9 mg/dL (1.8-2.4) Iron Level 27 ug/dL (65-175) Total Iron Binding Capacity 242 ug/dL (250-450) Iron Saturation 11 % (15-34) Ferritin 1418 ng/mL (26-388) Creatine Kinase 1870 U/L (39-308) 2141 U/L (39-308) O2 Saturation 86 % (92-99) Arterial Blood pH 7.38 (7.35-7.45) Arterial Blood pH (Temp corrected) 7.35 Arterial Blood pCO2 at Patient Temp 16 mmHg (35-46) Arterial Blood pCO2 (Temp correct) 18 mmHg Arterial Blood pO2 at Patient Temp 56 mmHg (65-108) Arterial Blood pO2 (Temp corrected) 66 mmHg Arterial Blood HCO3 10 mmol/L (21-28) Arterial Blood Base Excess -14 mmol/L (-3-3) FiO2 100 White Blood Count 3.4 x10^3/uL (4.0-11.0) Hemoglobin 7.9 g/dL (13.0-17.5) Hematocrit 23.9 % (39.0-53.0) Mean Corpuscular Volume 87 fL (79-100) Mean Corpuscular Hemoglobin 29 pg (25-35) Mean Corpuscular Hemoglobin Concent 33 g/dL (31-37) Red Cell Distribution Width 14.3 % (11.5-14.5) Platelet Count 137 x10^3/uL (140-400) Neutrophils (%) (Auto) 82 % (31-73) Lymphocytes (%) (Auto) 14 % (24-48) Monocytes (%) (Auto) 3 % (0-9) Eosinophils (%) (Auto) 0 % (0-3) Basophils (%) (Auto) 1 % (0-3) Neutrophils # (Auto) 2.8 x10^3/uL (1.8-7.7) Lymphocytes # (Auto) 0.5 x10^3/uL (1.0-4.8) Monocytes # (Auto) 0.1 x10^3/uL (0.0-1.1) Eosinophils # (Auto) 0.0 x10^3/uL (0.0-0.7) Basophils # (Auto) 0.0 x10^3/uL (0.0-0.2) Sodium Level 144 mmol/L (136-145) Chloride Level 110 mmol/L (98-107) Carbon Dioxide Level 10 mmol/L (21-32) Anion Gap 24 (6-14) Blood Urea Nitrogen 161 mg/dL (8-26) Creatinine 7.9 mg/dL (0.7-1.3) Estimated GFR (Cockcroft-Gault) 6.8 BUN/Creatinine Ratio 20 (6-20) Glucose Level 120 mg/dL (70-99) Total Bilirubin 0.4 mg/dL (0.2-1.0) Aspartate Amino Transf (AST/SGOT) 87 U/L (15-37) Alanine Aminotransferase (ALT/SGPT) 21 U/L (16-63) Alkaline Phosphatase 76 U/L (46-116) Total Protein 7.2 g/dL (6.4-8.2) Albumin 2.9 g/dL (3.4-5.0) Albumin/Globulin Ratio 0.7 (1.0-1.7) Assessment and Plan Assessmemt and Plan Problems Medical Problems: (1) Profound anemia Status: Acute (2) Renal failure Status: Acute (3) Respiratory failure Status: Acute (4) Suspected COVID-19 virus infection Status: Acute Comment Review of Relevant I have reviewed the following items virgil (where applicable) has been applied. Labs Laboratory Tests Test 06/11/20 15:10 06/11/20 15:30 06/11/20 16:53 06/11/20 21:50 White Blood Count 3.8 x10^3/uL (4.0-11.0) Red Blood Count 2.60 x10^6/uL (4.30-5.70) Hemoglobin 7.6 g/dL (13.0-17.5) Hematocrit 22.0 % (39.0-53.0) Mean Corpuscular Volume 85 fL (79-100) Mean Corpuscular Hemoglobin 29 pg (25-35) Mean Corpuscular Hemoglobin Concent 34 g/dL (31-37) Red Cell Distribution Width 13.8 % (11.5-14.5) Platelet Count 131 x10^3/uL (140-400) Neutrophils (%) (Auto) 83 % (31-73) Lymphocytes (%) (Auto) 11 % (24-48) Monocytes (%) (Auto) 5 % (0-9) Eosinophils (%) (Auto) 0 % (0-3) Basophils (%) (Auto) 0 % (0-3) Neutrophils # (Auto) 3.1 x10^3/uL (1.8-7.7) Lymphocytes # (Auto) 0.4 x10^3/uL (1.0-4.8) Monocytes # (Auto) 0.2 x10^3/uL (0.0-1.1) Eosinophils # (Auto) 0.0 x10^3/uL (0.0-0.7) Basophils # (Auto) 0.0 x10^3/uL (0.0-0.2) Prothrombin Time 14.6 SEC (11.7-14.0) Prothromb Time International Ratio 1.2 (0.8-1.1) Activated Partial Thromboplast Time 38 SEC (24-38) Fibrinogen 279 mg/dL (200-440) D-Dimer (Codi) 18.00 ug/mlFEU (0.00-0.50) Sodium Level 135 mmol/L (136-145) Potassium Level 4.1 mmol/L (3.5-5.1) Chloride Level 101 mmol/L (98-107) Carbon Dioxide Level 14 mmol/L (21-32) Anion Gap 20 (6-14) Blood Urea Nitrogen 141 mg/dL (8-26) Creatinine 6.0 mg/dL (0.7-1.3) Estimated GFR (Cockcroft-Gault) 9.4 BUN/Creatinine Ratio 24 (6-20) Glucose Level 130 mg/dL (70-99) Lactic Acid Level 1.0 mmol/L (0.4-2.0) Calcium Level 6.2 mg/dL (8.5-10.1) Transferrin 227 mg/dL (177-329) Total Bilirubin 0.3 mg/dL (0.2-1.0) Aspartate Amino Transf (AST/SGOT) 59 U/L (15-37) Alanine Aminotransferase (ALT/SGPT) 16 U/L (16-63) Alkaline Phosphatase 90 U/L (46-116) Creatine Kinase 1237 U/L (39-308) Troponin I Quantitative 0.038 ng/mL (0.000-0.055) C-Reactive Protein, Quantitative 80.6 mg/L (0-3.3) UL-Gyj-L-Type Natriuretic Peptide 1500 pg/mL (0-124) Total Protein 7.7 g/dL (6.4-8.2) Albumin 3.3 g/dL (3.4-5.0) Albumin/Globulin Ratio 0.8 (1.0-1.7) Lipase 504 U/L (73-393) Procalcitonin 0.68 ng/mL (0.00-0.10) Thyroid Stimulating Hormone (TSH) 0.623 uIU/mL (0.358-3.74) Coronavirus (PCR) Detected (Not Detected) O2 Saturation 95 % (92-99) Arterial Blood pH 7.35 (7.35-7.45) Arterial Blood pCO2 at Patient Temp 21 mmHg (35-46) Arterial Blood pO2 at Patient Temp 86 mmHg (65-108) Arterial Blood HCO3 11 mmol/L (21-28) Arterial Blood Base Excess -13 mmol/L (-3-3) FiO2 100% nrb Urine Collection Type Unknown Urine Color Yellow Urine Clarity Clear Urine pH 5.0 (<5.0-8.0) Urine Specific Hawley 1.015 (1.000-1.030) Urine Protein 30 mg/dL (NEG-TRACE) Urine Glucose (UA) Negative mg/dL (NEG) Urine Ketones (Stick) Negative mg/dL (NEG) Urine Blood Moderate (NEG) Urine Nitrite Negative (NEG) Urine Bilirubin Negative (NEG) Urine Urobilinogen Dipstick 0.2 mg/dL (0.2 mg/dL) Urine Leukocyte Esterase Negative (NEG) Urine RBC Occ /HPF (0-2) Urine WBC 0 /HPF (0-4) Urine Transitional Epithelial Cells Occ /LPF Urine Bacteria 0 /HPF (0-FEW) Test 06/12/20 05:00 06/12/20 13:56 06/12/20 20:45 06/12/20 21:25 White Blood Count 3.6 x10^3/uL (4.0-11.0) Red Blood Count 2.58 x10^6/uL (4.30-5.70) 2.71 x10^6/uL (4.30-5.70) Hemoglobin 7.5 g/dL (13.0-17.5) Hematocrit 22.0 % (39.0-53.0) Mean Corpuscular Volume 85 fL (79-100) Mean Corpuscular Hemoglobin 29 pg (25-35) Mean Corpuscular Hemoglobin Concent 34 g/dL (31-37) Red Cell Distribution Width 14.2 % (11.5-14.5) Platelet Count 123 x10^3/uL (140-400) Neutrophils (%) (Auto) 82 % (31-73) Lymphocytes (%) (Auto) 14 % (24-48) Monocytes (%) (Auto) 4 % (0-9) Eosinophils (%) (Auto) 0 % (0-3) Basophils (%) (Auto) 1 % (0-3) Neutrophils # (Auto) 2.9 x10^3/uL (1.8-7.7) Lymphocytes # (Auto) 0.5 x10^3/uL (1.0-4.8) Monocytes # (Auto) 0.1 x10^3/uL (0.0-1.1) Eosinophils # (Auto) 0.0 x10^3/uL (0.0-0.7) Basophils # (Auto) 0.0 x10^3/uL (0.0-0.2) Sodium Level 140 mmol/L (136-145) Potassium Level 4.2 mmol/L (3.5-5.1) 4.1 mmol/L (3.5-5.1) Chloride Level 106 mmol/L (98-107) Carbon Dioxide Level 16 mmol/L (21-32) Anion Gap 18 (6-14) Blood Urea Nitrogen 141 mg/dL (8-26) Creatinine 6.4 mg/dL (0.7-1.3) Estimated GFR (Cockcroft-Gault) 8.7 BUN/Creatinine Ratio 22 (6-20) Glucose Level 102 mg/dL (70-99) Calcium Level 5.7 mg/dL (8.5-10.1) 7.1 mg/dL (8.5-10.1) Total Bilirubin 0.3 mg/dL (0.2-1.0) Aspartate Amino Transf (AST/SGOT) 66 U/L (15-37) Alanine Aminotransferase (ALT/SGPT) 13 U/L (16-63) Alkaline Phosphatase 80 U/L (46-116) Total Protein 7.4 g/dL (6.4-8.2) Albumin 3.2 g/dL (3.4-5.0) Albumin/Globulin Ratio 0.8 (1.0-1.7) Absolute Reticulocyte Count 0.033 x10^6/uL (0.020-0.120) Percent Reticulocyte Count 1.2 % (0.5-2.3) Immature Reticulocyte Fraction 0.24 (0.20-0.60) Magnesium Level 0.9 mg/dL (1.8-2.4) 1.7 mg/dL (1.8-2.4) Iron Level 27 ug/dL (65-175) Total Iron Binding Capacity 242 ug/dL (250-450) Iron Saturation 11 % (15-34) Ferritin 1418 ng/mL (26-388) Creatine Kinase 1870 U/L (39-308) O2 Saturation 86 % (92-99) Arterial Blood pH 7.38 (7.35-7.45) Arterial Blood pH (Temp corrected) 7.35 Arterial Blood pCO2 at Patient Temp 16 mmHg (35-46) Arterial Blood pCO2 (Temp correct) 18 mmHg Arterial Blood pO2 at Patient Temp 56 mmHg (65-108) Arterial Blood pO2 (Temp corrected) 66 mmHg Arterial Blood HCO3 10 mmol/L (21-28) Arterial Blood Base Excess -14 mmol/L (-3-3) FiO2 100 Test 06/13/20 05:00 White Blood Count 3.4 x10^3/uL (4.0-11.0) Red Blood Count 2.75 x10^6/uL (4.30-5.70) Hemoglobin 7.9 g/dL (13.0-17.5) Hematocrit 23.9 % (39.0-53.0) Mean Corpuscular Volume 87 fL (79-100) Mean Corpuscular Hemoglobin 29 pg (25-35) Mean Corpuscular Hemoglobin Concent 33 g/dL (31-37) Red Cell Distribution Width 14.3 % (11.5-14.5) Platelet Count 137 x10^3/uL (140-400) Neutrophils (%) (Auto) 82 % (31-73) Lymphocytes (%) (Auto) 14 % (24-48) Monocytes (%) (Auto) 3 % (0-9) Eosinophils (%) (Auto) 0 % (0-3) Basophils (%) (Auto) 1 % (0-3) Neutrophils # (Auto) 2.8 x10^3/uL (1.8-7.7) Lymphocytes # (Auto) 0.5 x10^3/uL (1.0-4.8) Monocytes # (Auto) 0.1 x10^3/uL (0.0-1.1) Eosinophils # (Auto) 0.0 x10^3/uL (0.0-0.7) Basophils # (Auto) 0.0 x10^3/uL (0.0-0.2) Sodium Level 144 mmol/L (136-145) Potassium Level 4.5 mmol/L (3.5-5.1) Chloride Level 110 mmol/L (98-107) Carbon Dioxide Level 10 mmol/L (21-32) Anion Gap 24 (6-14) Blood Urea Nitrogen 161 mg/dL (8-26) Creatinine 7.9 mg/dL (0.7-1.3) Estimated GFR (Cockcroft-Gault) 6.8 BUN/Creatinine Ratio 20 (6-20) Glucose Level 120 mg/dL (70-99) Calcium Level 7.0 mg/dL (8.5-10.1) Magnesium Level 1.9 mg/dL (1.8-2.4) Total Bilirubin 0.4 mg/dL (0.2-1.0) Aspartate Amino Transf (AST/SGOT) 87 U/L (15-37) Alanine Aminotransferase (ALT/SGPT) 21 U/L (16-63) Alkaline Phosphatase 76 U/L (46-116) Creatine Kinase 2141 U/L (39-308) Total Protein 7.2 g/dL (6.4-8.2) Albumin 2.9 g/dL (3.4-5.0) Albumin/Globulin Ratio 0.7 (1.0-1.7) Laboratory Tests Test 06/12/20 13:56 06/12/20 20:45 06/12/20 21:25 06/13/20 05:00 Red Blood Count 2.71 x10^6/uL (4.30-5.70) 2.75 x10^6/uL (4.30-5.70) Absolute Reticulocyte Count 0.033 x10^6/uL (0.020-0.120) Percent Reticulocyte Count 1.2 % (0.5-2.3) Immature Reticulocyte Fraction 0.24 (0.20-0.60) Potassium Level 4.1 mmol/L (3.5-5.1) 4.5 mmol/L (3.5-5.1) Calcium Level 7.1 mg/dL (8.5-10.1) 7.0 mg/dL (8.5-10.1) Magnesium Level 0.9 mg/dL (1.8-2.4) 1.7 mg/dL (1.8-2.4) 1.9 mg/dL (1.8-2.4) Iron Level 27 ug/dL (65-175) Total Iron Binding Capacity 242 ug/dL (250-450) Iron Saturation 11 % (15-34) Ferritin 1418 ng/mL (26-388) Creatine Kinase 1870 U/L (39-308) 2141 U/L (39-308) O2 Saturation 86 % (92-99) Arterial Blood pH 7.38 (7.35-7.45) Arterial Blood pH (Temp corrected) 7.35 Arterial Blood pCO2 at Patient Temp 16 mmHg (35-46) Arterial Blood pCO2 (Temp correct) 18 mmHg Arterial Blood pO2 at Patient Temp 56 mmHg (65-108) Arterial Blood pO2 (Temp corrected) 66 mmHg Arterial Blood HCO3 10 mmol/L (21-28) Arterial Blood Base Excess -14 mmol/L (-3-3) FiO2 100 White Blood Count 3.4 x10^3/uL (4.0-11.0) Hemoglobin 7.9 g/dL (13.0-17.5) Hematocrit 23.9 % (39.0-53.0) Mean Corpuscular Volume 87 fL (79-100) Mean Corpuscular Hemoglobin 29 pg (25-35) Mean Corpuscular Hemoglobin Concent 33 g/dL (31-37) Red Cell Distribution Width 14.3 % (11.5-14.5) Platelet Count 137 x10^3/uL (140-400) Neutrophils (%) (Auto) 82 % (31-73) Lymphocytes (%) (Auto) 14 % (24-48) Monocytes (%) (Auto) 3 % (0-9) Eosinophils (%) (Auto) 0 % (0-3) Basophils (%) (Auto) 1 % (0-3) Neutrophils # (Auto) 2.8 x10^3/uL (1.8-7.7) Lymphocytes # (Auto) 0.5 x10^3/uL (1.0-4.8) Monocytes # (Auto) 0.1 x10^3/uL (0.0-1.1) Eosinophils # (Auto) 0.0 x10^3/uL (0.0-0.7) Basophils # (Auto) 0.0 x10^3/uL (0.0-0.2) Sodium Level 144 mmol/L (136-145) Chloride Level 110 mmol/L (98-107) Carbon Dioxide Level 10 mmol/L (21-32) Anion Gap 24 (6-14) Blood Urea Nitrogen 161 mg/dL (8-26) Creatinine 7.9 mg/dL (0.7-1.3) Estimated GFR (Cockcroft-Gault) 6.8 BUN/Creatinine Ratio 20 (6-20) Glucose Level 120 mg/dL (70-99) Total Bilirubin 0.4 mg/dL (0.2-1.0) Aspartate Amino Transf (AST/SGOT) 87 U/L (15-37) Alanine Aminotransferase (ALT/SGPT) 21 U/L (16-63) Alkaline Phosphatase 76 U/L (46-116) Total Protein 7.2 g/dL (6.4-8.2) Albumin 2.9 g/dL (3.4-5.0) Albumin/Globulin Ratio 0.7 (1.0-1.7) Microbiology 06/11/20 Blood Culture - Preliminary, Resulted NO GROWTH AFTER 1 DAY Medications Current Medications Piperacillin Sod/ Tazobactam Sod 4.5 gm/Sodium Chloride 100 ml @ 200 mls/hr 1X ONCE IV Last administered on 06/11/20at 15:24; Start 06/11/20 at 15:30; Stop 06/11/20 at 15:59; Status DC Sodium Chloride 1,000 ml @ 1,000 mls/hr 1X ONCE IV Last administered on 06/11/20at 15:23; Start 06/11/20 at 15:00; Stop 06/11/20 at 15:59; Status DC Acetaminophen (Tylenol) 1,000 mg 1X ONCE PO Last administered on 06/11/20at 15:23; Start 06/11/20 at 15:30; Stop 06/11/20 at 15:31; Status DC Ondansetron HCl (Zofran) 4 mg PRN Q8HRS PRN IV NAUSEA/VOMITING; Start 06/11/20 at 16:15; Stop 06/12/20 at 16:14; Status DC Sodium Chloride 1,000 ml @ 125 mls/hr Q8H IV ; Start 06/11/20 at 16:07; Stop 06/11/20 at 18:50; Status DC Piperacillin Sod/ Tazobactam Sod (Zosyn Per Pharmacy) 1 each PRN DAILY PRN MC SEE COMMENTS; Start 06/11/20 at 18:00 Acetaminophen (Tylenol) 650 mg PRN Q6HRS PRN PO Headaches, Temp > 101.5'; Start 06/11/20 at 18:00 Famotidine (Pepcid Vial) 20 mg DAILY IVP Last administered on 06/12/20at 08:06; Start 06/11/20 at 21:00 Info (Icu Electrolyte Protocol) 1 ea DAILY MC ; Start 06/12/20 at 09:00 Heparin Sodium (Porcine) (Heparin Sodium) 5,000 unit Q8HRS SQ Last administered on 06/13/20at 05:24; Start 06/11/20 at 18:30 Sodium Chloride (Normal Saline Flush) 3 ml QSHIFT PRN IV AFTER MEDS AND BLOOD DRAWS; Start 06/11/20 at 18:00 Sodium Chloride 1,000 ml @ 100 mls/hr Q10H IV Last administered on 06/11/20at 20:35; Start 06/11/20 at 17:57; Stop 06/12/20 at 14:12; Status DC Docusate Sodium (Colace) 100 mg BID PO ; Start 06/11/20 at 21:00 Bisacodyl (Dulcolax Supp) 10 mg PRN DAILY PRN [place] CONSTIPATION; Start 06/11/20 at 18:00 Ascorbic Acid (Vitamin C) 500 mg DAILY PO ; Start 06/12/20 at 09:00 Carbidopa/Levodopa (Sinemet 25/100) 1 tab QID PO ; Start 06/11/20 at 18:15 Multivitamins (Thera M Plus) 1 tab DAILY PO ; Start 06/12/20 at 09:00 Mupirocin (Bactroban) 1 oh BID NS Last administered on 06/12/20at 21:00; Start 06/11/20 at 21:00 Quetiapine Fumarate (SEROquel) 25 mg QHS PO ; Start 06/11/20 at 21:00 Ropinirole HCl (Requip) 4 mg BID PO ; Start 06/11/20 at 21:00 Piperacillin Sod/ Tazobactam Sod 2.25 gm/Sodium Chloride 50 ml @ 100 mls/hr Q6HRS IV Last administered on 06/13/20at 05:22; Start 06/11/20 at 18:30 Calcium Chloride 2000 mg/Sodium Chloride 120 ml @ 240 mls/hr 1X ONCE IV Last administered on 06/12/20at 07:39; Start 06/12/20 at 07:00; Stop 06/12/20 at 07:29; Status DC Amino Acids/ Glycerin/ Electrolytes 1,000 ml @ 80 mls/hr [id number] IV Last administered on 06/13/20at 02:52; Start 06/12/20 at 14:15 Diltiazem HCl 125 mg/Sodium Chloride 125 ml @ 5 mls/hr CONT PRN IV SEE I/O RECORD; Start 06/12/20 at 18:00 Diltiazem HCl (Cardizem Iv Push) 5 mg 1X ONCE IVP Last administered on 06/12/20at 17:59; Start 06/12/20 at 18:00; Stop 06/12/20 at 18:01; Status DC Magnesium Sulfate 50 ml @ 25 mls/hr 1X ONCE IV Last administered on 06/12/20at 18:33; Start 06/12/20 at 18:00; Stop 06/12/20 at 19:59; Status DC Morphine Sulfate (Morphine Sulfate) 2 mg 1X ONCE IVP Last administered on 06/12/20at 18:34; Start 06/12/20 at 18:15; Stop 06/12/20 at 18:16; Status DC Furosemide (Lasix) 40 mg 1X ONCE IVP Last administered on 06/12/20at 18:33; Start 06/12/20 at 18:30; Stop 06/12/20 at 18:31; Status DC Acetaminophen (Tylenol Supp) 650 mg PRN Q6HRS PRN [place] MILD PAIN / TEMP > 100.3'F Last administered on 06/13/20at 05:23; Start 06/12/20 at 18:45 Sterile Water (WATER for RESP) 1,000 ml CONT PRN INH VIA VAPOTHERM DEVICE Last administered on 06/13/20at 02:45; Start 06/12/20 at 19:00 Sodium Bicarbonate 150 meq/Dextrose 1,150 ml @ 0 mls/hr 1X ONCE IV Last administered on 06/13/20at 06:47; Start 06/13/20 at 06:30; Stop 06/13/20 at 06:31; Status DC Active Scripts Active Keflex (Cephalexin) 500 Mg Capsule 1 Cap PO TID Vitamin C (Ascorbic Acid) 500 Mg Tablet 500 Mg PO DAILY Mupirocin Ointment (Mupirocin) 22 Gm Oint...g. 1 Oh NS BID Thera-M Tablet (Multivits,Ca,Minerals/Iron/Fa) 1 Each Tablet 1 Tab PO DAILY Reported Seroquel (Quetiapine Fumarate) 25 Mg Tablet 1 Tab PO QHS Ropinirole Hcl 4 Mg Tablet 4 Mg PO BID Atorvastatin Calcium 20 Mg Tablet 20 Mg PO HS Sinemet 25-100 Mg Tablet (Carbidopa/Levodopa) 1 Each Tablet 1 Tab PO QID PRN Vitals/I & O Vital Sign - Last 24 Hours 06/12/20 06/12/20 06/12/20 06/12/20 08:00 08:00 09:00 10:00 Temp 98.5 98.5 Pulse 84 90 90 Resp 25 B/P (MAP) 139/72 (94) 144/72 (96) 145/70 (95) Pulse Ox 93 97 97 O2 Delivery NonRebreather Mask Non-Rebreather NonRebreather Mask NonRebreather Mask O2 Flow Rate 15.0 15.0 15.0 15.0 06/12/20 06/12/20 06/12/20 06/12/20 11:00 12:00 12:00 13:00 Temp 99.2 99.2 Pulse 91 90 92 Resp 24 25 B/P (MAP) 154/73 (100) 136/87 (103) 129/73 (91) Pulse Ox 99 100 99 O2 Delivery NonRebreather Mask Non-Rebreather NonRebreather Mask NonRebreather Mask O2 Flow Rate 15.0 15.0 15.0 15.0 06/12/20 06/12/20 06/12/20 06/12/20 14:00 15:00 16:00 16:00 Temp 99.5 99.5 Pulse 94 98 108 Resp 32 22 32 B/P (MAP) 145/79 (101) 135/57 (83) 150/66 (94) Pulse Ox 97 98 94 O2 Delivery NonRebreather Mask NonRebreather Mask NonRebreather Mask Non- Rebreather O2 Flow Rate 15.0 15.0 15.0 15.0 06/12/20 06/12/20 06/12/20 06/12/20 17:00 17:59 18:00 18:34 Temp 103.3 103.3 Pulse 166 120 133 Resp 31 46 B/P (MAP) 147/83 (104) 132/82 116/8 (44) Pulse Ox 96 86 73 O2 Delivery NonRebreather Mask NonRebreather Mask Nasal Cannula O2 Flow Rate 15.0 15.0 40.0 06/12/20 06/12/20 06/12/20 06/12/20 19:00 20:00 20:00 20:15 Temp 102.7 102.7 Pulse 124 114 114 Resp 33 30 28 B/P (MAP) 98/66 (77) 95/62 (73) 99/64 (76) Pulse Ox 87 95 92 O2 Delivery Vapotherm Vapotherm Vapotherm O2 Flow Rate 40.0 40.0 40.0 40.0 06/12/20 06/12/20 06/12/20 06/12/20 20:30 20:40 21:00 22:00 Pulse 86 79 80 Resp 26 B/P (MAP) 99/61 (74) 90/53 (65) 97/49 (65) Pulse Ox 97 96 99 O2 Delivery Vapotherm vapotherm Vapotherm Vapotherm O2 Flow Rate 40.0 40.0 40.0 40.0 06/12/20 06/13/20 06/13/20 06/13/20 23:00 00:00 00:13 00:34 Temp 100.9 100.9 Pulse 72 Resp 23 21 B/P (MAP) 114/68 (83) 107/63 (78) Pulse Ox 100 100 96 O2 Delivery Vapotherm Vapotherm vapotherm O2 Flow Rate 40.0 40.0 40.0 40.0 06/13/20 06/13/20 06/13/20 06/13/20 01:00 02:00 02:53 03:00 Pulse 68 74 86 Resp 20 20 22 B/P (MAP) 100/61 (74) 122/70 (87) 125/71 (89) Pulse Ox 100 100 96 86 O2 Delivery Vapotherm Vapotherm vapotherm Vapotherm O2 Flow Rate 40.0 40.0 40.0 40.0 06/13/20 06/13/20 06/13/20 06/13/20 04:00 04:00 05:00 05:49 Temp 100.0 100.0 Pulse 82 78 Resp 25 B/P (MAP) 119/76 (90) 108/57 (74) Pulse Ox 96 97 97 O2 Delivery Vapotherm Vapotherm vapotherm O2 Flow Rate 40.0 40.0 40.0 40.0 06/13/20 06/13/20 06:00 07:00 Pulse 86 89 Resp 30 32 B/P (MAP) 111/66 (81) 85/65 (72) Pulse Ox 97 95 O2 Delivery Vapotherm Vapotherm O2 Flow Rate 40.0 40.0 Intake and Output 06/12/20 06/12/20 06/13/20 15:00 23:00 07:00 Intake Total 1106 ml 950 ml Output Total 1005 ml 575 ml 120 ml Balance 101 ml -575 ml 830 ml Justicifation of Admission Dx: Justifications for Admission: Justification of Admission Dx: MONICA Stephens MD Jun 13, 2020 07:52
[2020-06-13 08:27] LABS: BASE EXCESS ABG -13 mmol/L (-3-3); HCO3 ABG 10 mmol/L (21-28); PO2 ABG 57 mmHg (65-108); SAT O2 ABG 86 % (92-99)
[2020-06-13 08:29] LABS: PCO2 ABG 17 mmHg (35-46)
[2020-06-13 08:30] LABS: FIO2 ABG 100
[2020-06-13] MEDS: ELECTROLYTE (ICU) PROTOCOL. MC SCH (08:39)
[2020-06-13] MEDS: FAMOTIDINE 20 MG/2 ML VIAL IVP SCH (08:39)
--- NOTE | 2020-06-13 08:43 | PDOC ---
Infectious Disease Note Subjective: Subjective Patient seen and examined ID consult dictated Vital Signs: Vital Signs Vital Signs Date Time Temp Pulse Resp B/P (MAP) Pulse Ox O2 Delivery O2 Flow Rate FiO2 06/13/20 08:18 95 vapotherm 40.0 06/13/20 07:00 89 32 85/65 (72) 06/13/20 05:00 100.0 100.0 Physical Exam: PHYSICAL EXAM HENT: Normocephalic, atraumatic, no trismus, mild dry oral mucosa Eyes: PERRLA, EOMI, conjunctiva normal, no discharge. [] Neck: Normal range of motion, no tenderness, supple, no stridor. [] Cardiovascular:Heart rate regular rhythm, no murmur [] Lungs & Thorax: Diminished breath sounds with scattered rhonchi Abdomen: soft, no tenderness, no masses, no pulsatile masses. [] Skin: Warm, dry, pale Back: No tenderness, no CVA tenderness. [] Extremities: No tenderness, no cyanosis, no clubbing, ROM intact, no edema. [] Neurologic: Alert and and oriented to year but confused exact date., Generalized weakness General: Cooperative, mild distress HEENT: Atraumatic Abdomen: Soft Rectal Exam: not examined PELVIC: Examination not indicated Medications: Inpatient Meds: Current Medications Medications (Trade) Dose Ordered [facility] Start Time Stop Time Status Last Admin Dose Admin Acetaminophen (Tylenol Supp) 650 mg PRN Q6HRS PRN 06/12/20 18:45 06/13/20 05:23 650 MG Acetaminophen (Tylenol) 650 mg PRN Q6HRS PRN 06/11/20 18:00 Amino Acids/ Glycerin/ Electrolytes 1,000 ml @ 80 mls/hr [id number] 06/12/20 14:15 06/13/20 02:52 80 MLS/HR Ascorbic Acid (Vitamin C) 500 mg DAILY 06/12/20 09:00 Bisacodyl (Dulcolax Supp) 10 mg PRN DAILY PRN 06/11/20 18:00 Calcium Chloride 2000 mg/Sodium Chloride 120 ml @ 240 mls/hr 1X ONCE 06/12/20 07:00 06/12/20 07:29 DC 06/12/20 07:39 240 MLS/HR Carbidopa/Levodopa (Sinemet 25/100) 1 tab QID 06/11/20 18:15 Diltiazem HCl (Cardizem Iv Push) 5 mg 1X ONCE 06/12/20 18:00 06/12/20 18:01 DC 06/12/20 17:59 5 MG Diltiazem HCl 125 mg/Sodium Chloride 125 ml @ 5 mls/hr CONT PRN 06/12/20 18:00 Docusate Sodium (Colace) 100 mg BID 06/11/20 21:00 Famotidine (Pepcid Vial) 20 mg DAILY 06/11/20 21:00 06/12/20 08:06 20 MG Furosemide (Lasix) 40 mg 1X ONCE 06/12/20 18:30 06/12/20 18:31 DC 06/12/20 18:33 40 MG Heparin Sodium (Porcine) (Heparin Sodium) 5,000 unit Q8HRS 06/11/20 18:30 06/13/20 05:24 5,000 UNIT Info ([facility] Electrolyte Protocol) 1 ea DAILY 06/12/20 09:00 Magnesium Sulfate 50 ml @ 25 mls/hr 1X ONCE 06/12/20 18:00 06/12/20 19:59 DC 06/12/20 18:33 25 MLS/HR Morphine Sulfate (Morphine Sulfate) 2 mg 1X ONCE 06/12/20 18:15 06/12/20 18:16 DC 06/12/20 18:34 2 MG Multivitamins (Thera M Plus) 1 tab DAILY 06/12/20 09:00 Mupirocin (Bactroban) 1 hernan BID 06/11/20 21:00 06/12/20 21:00 1 HERNAN Ondansetron HCl (Zofran) 4 mg PRN Q8HRS PRN 06/11/20 16:15 06/12/20 16:14 DC Piperacillin Sod/ Tazobactam Sod (Zosyn Per Pharmacy) 1 each PRN DAILY PRN 06/11/20 18:00 Piperacillin Sod/ Tazobactam Sod 2.25 gm/Sodium Chloride 50 ml @ 100 mls/hr Q6HRS 06/11/20 18:30 06/13/20 05:22 100 MLS/HR Piperacillin Sod/ Tazobactam Sod 4.5 gm/Sodium Chloride 100 ml @ 200 mls/hr 1X ONCE 06/11/20 15:30 06/11/20 15:59 DC 06/11/20 15:24 200 MLS/HR Quetiapine Fumarate (SEROquel) 25 mg QHS 06/11/20 21:00 Ropinirole HCl (Requip) 4 mg BID 06/11/20 21:00 Sodium Bicarbonate 150 meq/Dextrose 1,150 ml @ 0 mls/hr 1X ONCE 06/13/20 06:30 06/13/20 06:31 DC 06/13/20 06:47 75 MLS/HR Sodium Chloride 1,000 ml @ 100 mls/hr Q10H 06/11/20 17:57 06/12/20 14:12 DC 06/11/20 20:35 100 MLS/HR Sodium Chloride (Normal Saline Flush) 3 ml QSHIFT PRN 06/11/20 18:00 Sterile Water (WATER for RESP) 1,000 ml CONT PRN 06/12/20 19:00 06/13/20 02:45 1,000 ML Labs: Lab Laboratory Tests Test 06/12/20 13:56 06/12/20 20:45 06/12/20 21:25 06/13/20 05:00 Red Blood Count 2.71 x10^6/uL (4.30-5.70) 2.75 x10^6/uL (4.30-5.70) Absolute Reticulocyte Count 0.033 x10^6/uL (0.020-0.120) Percent Reticulocyte Count 1.2 % (0.5-2.3) Immature Reticulocyte Fraction 0.24 (0.20-0.60) Potassium Level 4.1 mmol/L (3.5-5.1) 4.5 mmol/L (3.5-5.1) Calcium Level 7.1 mg/dL (8.5-10.1) 7.0 mg/dL (8.5-10.1) Magnesium Level 0.9 mg/dL (1.8-2.4) 1.7 mg/dL (1.8-2.4) 1.9 mg/dL (1.8-2.4) Iron Level 27 ug/dL (65-175) Total Iron Binding Capacity 242 ug/dL (250-450) Iron Saturation 11 % (15-34) Ferritin 1418 ng/mL (26-388) Creatine Kinase 1870 U/L (39-308) 2141 U/L (39-308) O2 Saturation 86 % (92-99) Arterial Blood pH 7.38 (7.35-7.45) Arterial Blood pH (Temp corrected) 7.35 Arterial Blood pCO2 at Patient Temp 16 mmHg (35-46) Arterial Blood pCO2 (Temp correct) 18 mmHg Arterial Blood pO2 at Patient Temp 56 mmHg (65-108) Arterial Blood pO2 (Temp corrected) 66 mmHg Arterial Blood HCO3 10 mmol/L (21-28) Arterial Blood Base Excess -14 mmol/L (-3-3) FiO2 100 White Blood Count 3.4 x10^3/uL (4.0-11.0) Hemoglobin 7.9 g/dL (13.0-17.5) Hematocrit 23.9 % (39.0-53.0) Mean Corpuscular Volume 87 fL (79-100) Mean Corpuscular Hemoglobin 29 pg (25-35) Mean Corpuscular Hemoglobin Concent 33 g/dL (31-37) Red Cell Distribution Width 14.3 % (11.5-14.5) Platelet Count 137 x10^3/uL (140-400) Neutrophils (%) (Auto) 82 % (31-73) Lymphocytes (%) (Auto) 14 % (24-48) Monocytes (%) (Auto) 3 % (0-9) Eosinophils (%) (Auto) 0 % (0-3) Basophils (%) (Auto) 1 % (0-3) Neutrophils # (Auto) 2.8 x10^3/uL (1.8-7.7) Lymphocytes # (Auto) 0.5 x10^3/uL (1.0-4.8) Monocytes # (Auto) 0.1 x10^3/uL (0.0-1.1) Eosinophils # (Auto) 0.0 x10^3/uL (0.0-0.7) Basophils # (Auto) 0.0 x10^3/uL (0.0-0.2) Sodium Level 144 mmol/L (136-145) Chloride Level 110 mmol/L (98-107) Carbon Dioxide Level 10 mmol/L (21-32) Anion Gap 24 (6-14) Blood Urea Nitrogen 161 mg/dL (8-26) Creatinine 7.9 mg/dL (0.7-1.3) Estimated GFR (Cockcroft-Gault) 6.8 BUN/Creatinine Ratio 20 (6-20) Glucose Level 120 mg/dL (70-99) Total Bilirubin 0.4 mg/dL (0.2-1.0) Aspartate Amino Transf (AST/SGOT) 87 U/L (15-37) Alanine Aminotransferase (ALT/SGPT) 21 U/L (16-63) Alkaline Phosphatase 76 U/L (46-116) Total Protein 7.2 g/dL (6.4-8.2) Albumin 2.9 g/dL (3.4-5.0) Albumin/Globulin Ratio 0.7 (1.0-1.7) Test 06/13/20 08:23 O2 Saturation 86 % (92-99) Arterial Blood pH 7.40 (7.35-7.45) Arterial Blood pCO2 at Patient Temp 17 mmHg (35-46) Arterial Blood pO2 at Patient Temp 57 mmHg (65-108) Arterial Blood HCO3 10 mmol/L (21-28) Arterial Blood Base Excess -13 mmol/L (-3-3) FiO2 100 Objective: Assessment: COVID-19 respiratory infection Fever Leukopenia OFELIA with metabolic acidosis Electrolyte imbalance Dementia [facility] resident Plan: Plan of Care Continue supportive care Continue Zosyn, renal dosing Plasma administration if okay with DPOA Awaiting dialysis Critically ill Prognosis very poor Discussed with Dr. Linda Discussed with nursing staff Thank you [id number] CATA HDEZ MD Jun 13, 2020 08:43
[2020-06-13] MEDS ORDERED: SODIUM BICARB ADULT 8.4% 50 MEQ/50 ML DISP.SYRIN. IV ONE (08:45)
--- NOTE | 2020-06-13 08:55 | NUR ---
Cheyenne Cartwright pt's legal guardian called back and consented over the phone to put a temporary dialysis catheter in pt and starting dialysis.
[2020-06-13] MEDS: MULTIVITAMIN with MINERAL TABLET. PO SCH (09:00)
[2020-06-13] MEDS: CARBIDOPA/LEVODOPA 25/100MG TABLET PO SCH ×2 (09:00→13:00)
[2020-06-13] MEDS: ASCORBIC ACID 500 MG TABLET PO SCH (09:00)
[2020-06-13] MEDS: MUPIROCIN 2 % NASAL OINTMENT 22GM TUBE. NS SCH (09:00)
[2020-06-13] MEDS: DOCUSATE SODIUM 100 MG CAPSULE. PO SCH (09:00)
[2020-06-13] MEDS: rOPINIRole 1 MG TABLET. PO SCH (09:00)
--- NOTE | 2020-06-13 09:05 | PDOC ---
PULMONARY PROGRESS NOTES Subjective remains critically ill on 100%FIO2/ VAPOTHERM Worsening renal failure severe metabolic acidosis Vitals Vital Signs Date Time Temp Pulse Resp B/P (MAP) Pulse Ox O2 Delivery O2 Flow Rate FiO2 06/13/20 08:18 95 vapotherm 40.0 06/13/20 07:00 89 32 85/65 (72) 06/13/20 05:00 100.0 100.0 Comments visual exam done due to COVID pandemia no distress, no paradoxical breathing trace leg edema Labs Laboratory Tests Test 06/11/20 15:10 06/11/20 15:30 06/11/20 16:53 06/11/20 21:50 White Blood Count 3.8 x10^3/uL (4.0-11.0) Red Blood Count 2.60 x10^6/uL (4.30-5.70) Hemoglobin 7.6 g/dL (13.0-17.5) Hematocrit 22.0 % (39.0-53.0) Mean Corpuscular Volume 85 fL (79-100) Mean Corpuscular Hemoglobin 29 pg (25-35) Mean Corpuscular Hemoglobin Concent 34 g/dL (31-37) Red Cell Distribution Width 13.8 % (11.5-14.5) Platelet Count 131 x10^3/uL (140-400) Neutrophils (%) (Auto) 83 % (31-73) Lymphocytes (%) (Auto) 11 % (24-48) Monocytes (%) (Auto) 5 % (0-9) Eosinophils (%) (Auto) 0 % (0-3) Basophils (%) (Auto) 0 % (0-3) Neutrophils # (Auto) 3.1 x10^3/uL (1.8-7.7) Lymphocytes # (Auto) 0.4 x10^3/uL (1.0-4.8) Monocytes # (Auto) 0.2 x10^3/uL (0.0-1.1) Eosinophils # (Auto) 0.0 x10^3/uL (0.0-0.7) Basophils # (Auto) 0.0 x10^3/uL (0.0-0.2) Prothrombin Time 14.6 SEC (11.7-14.0) Prothromb Time International Ratio 1.2 (0.8-1.1) Activated Partial Thromboplast Time 38 SEC (24-38) Fibrinogen 279 mg/dL (200-440) D-Dimer (Codi) 18.00 ug/mlFEU (0.00-0.50) Sodium Level 135 mmol/L (136-145) Potassium Level 4.1 mmol/L (3.5-5.1) Chloride Level 101 mmol/L (98-107) Carbon Dioxide Level 14 mmol/L (21-32) Anion Gap 20 (6-14) Blood Urea Nitrogen 141 mg/dL (8-26) Creatinine 6.0 mg/dL (0.7-1.3) Estimated GFR (Cockcroft-Gault) 9.4 BUN/Creatinine Ratio 24 (6-20) Glucose Level 130 mg/dL (70-99) Lactic Acid Level 1.0 mmol/L (0.4-2.0) Calcium Level 6.2 mg/dL (8.5-10.1) Transferrin 227 mg/dL (177-329) Total Bilirubin 0.3 mg/dL (0.2-1.0) Aspartate Amino Transf (AST/SGOT) 59 U/L (15-37) Alanine Aminotransferase (ALT/SGPT) 16 U/L (16-63) Alkaline Phosphatase 90 U/L (46-116) Creatine Kinase 1237 U/L (39-308) Troponin I Quantitative 0.038 ng/mL (0.000-0.055) C-Reactive Protein, Quantitative 80.6 mg/L (0-3.3) UR-Jcs-L-Type Natriuretic Peptide 1500 pg/mL (0-124) Total Protein 7.7 g/dL (6.4-8.2) Albumin 3.3 g/dL (3.4-5.0) Albumin/Globulin Ratio 0.8 (1.0-1.7) Lipase 504 U/L (73-393) Procalcitonin 0.68 ng/mL (0.00-0.10) Thyroid Stimulating Hormone (TSH) 0.623 uIU/mL (0.358-3.74) Coronavirus (PCR) Detected (Not Detected) O2 Saturation 95 % (92-99) Arterial Blood pH 7.35 (7.35-7.45) Arterial Blood pCO2 at Patient Temp 21 mmHg (35-46) Arterial Blood pO2 at Patient Temp 86 mmHg (65-108) Arterial Blood HCO3 11 mmol/L (21-28) Arterial Blood Base Excess -13 mmol/L (-3-3) FiO2 100% nrb Urine Collection Type Unknown Urine Color Yellow Urine Clarity Clear Urine pH 5.0 (<5.0-8.0) Urine Specific Parker 1.015 (1.000-1.030) Urine Protein 30 mg/dL (NEG-TRACE) Urine Glucose (UA) Negative mg/dL (NEG) Urine Ketones (Stick) Negative mg/dL (NEG) Urine Blood Moderate (NEG) Urine Nitrite Negative (NEG) Urine Bilirubin Negative (NEG) Urine Urobilinogen Dipstick 0.2 mg/dL (0.2 mg/dL) Urine Leukocyte Esterase Negative (NEG) Urine RBC Occ /HPF (0-2) Urine WBC 0 /HPF (0-4) Urine Transitional Epithelial Cells Occ /LPF Urine Bacteria 0 /HPF (0-FEW) Test 06/12/20 05:00 06/12/20 13:56 06/12/20 20:45 06/12/20 21:25 White Blood Count 3.6 x10^3/uL (4.0-11.0) Red Blood Count 2.58 x10^6/uL (4.30-5.70) 2.71 x10^6/uL (4.30-5.70) Hemoglobin 7.5 g/dL (13.0-17.5) Hematocrit 22.0 % (39.0-53.0) Mean Corpuscular Volume 85 fL (79-100) Mean Corpuscular Hemoglobin 29 pg (25-35) Mean Corpuscular Hemoglobin Concent 34 g/dL (31-37) Red Cell Distribution Width 14.2 % (11.5-14.5) Platelet Count 123 x10^3/uL (140-400) Neutrophils (%) (Auto) 82 % (31-73) Lymphocytes (%) (Auto) 14 % (24-48) Monocytes (%) (Auto) 4 % (0-9) Eosinophils (%) (Auto) 0 % (0-3) Basophils (%) (Auto) 1 % (0-3) Neutrophils # (Auto) 2.9 x10^3/uL (1.8-7.7) Lymphocytes # (Auto) 0.5 x10^3/uL (1.0-4.8) Monocytes # (Auto) 0.1 x10^3/uL (0.0-1.1) Eosinophils # (Auto) 0.0 x10^3/uL (0.0-0.7) Basophils # (Auto) 0.0 x10^3/uL (0.0-0.2) Sodium Level 140 mmol/L (136-145) Potassium Level 4.2 mmol/L (3.5-5.1) 4.1 mmol/L (3.5-5.1) Chloride Level 106 mmol/L (98-107) Carbon Dioxide Level 16 mmol/L (21-32) Anion Gap 18 (6-14) Blood Urea Nitrogen 141 mg/dL (8-26) Creatinine 6.4 mg/dL (0.7-1.3) Estimated GFR (Cockcroft-Gault) 8.7 BUN/Creatinine Ratio 22 (6-20) Glucose Level 102 mg/dL (70-99) Calcium Level 5.7 mg/dL (8.5-10.1) 7.1 mg/dL (8.5-10.1) Total Bilirubin 0.3 mg/dL (0.2-1.0) Aspartate Amino Transf (AST/SGOT) 66 U/L (15-37) Alanine Aminotransferase (ALT/SGPT) 13 U/L (16-63) Alkaline Phosphatase 80 U/L (46-116) Total Protein 7.4 g/dL (6.4-8.2) Albumin 3.2 g/dL (3.4-5.0) Albumin/Globulin Ratio 0.8 (1.0-1.7) Absolute Reticulocyte Count 0.033 x10^6/uL (0.020-0.120) Percent Reticulocyte Count 1.2 % (0.5-2.3) Immature Reticulocyte Fraction 0.24 (0.20-0.60) Magnesium Level 0.9 mg/dL (1.8-2.4) 1.7 mg/dL (1.8-2.4) Iron Level 27 ug/dL (65-175) Total Iron Binding Capacity 242 ug/dL (250-450) Iron Saturation 11 % (15-34) Ferritin 1418 ng/mL (26-388) Creatine Kinase 1870 U/L (39-308) O2 Saturation 86 % (92-99) Arterial Blood pH 7.38 (7.35-7.45) Arterial Blood pH (Temp corrected) 7.35 Arterial Blood pCO2 at Patient Temp 16 mmHg (35-46) Arterial Blood pCO2 (Temp correct) 18 mmHg Arterial Blood pO2 at Patient Temp 56 mmHg (65-108) Arterial Blood pO2 (Temp corrected) 66 mmHg Arterial Blood HCO3 10 mmol/L (21-28) Arterial Blood Base Excess -14 mmol/L (-3-3) FiO2 100 Test 06/13/20 05:00 06/13/20 08:23 White Blood Count 3.4 x10^3/uL (4.0-11.0) Red Blood Count 2.75 x10^6/uL (4.30-5.70) Hemoglobin 7.9 g/dL (13.0-17.5) Hematocrit 23.9 % (39.0-53.0) Mean Corpuscular Volume 87 fL (79-100) Mean Corpuscular Hemoglobin 29 pg (25-35) Mean Corpuscular Hemoglobin Concent 33 g/dL (31-37) Red Cell Distribution Width 14.3 % (11.5-14.5) Platelet Count 137 x10^3/uL (140-400) Neutrophils (%) (Auto) 82 % (31-73) Lymphocytes (%) (Auto) 14 % (24-48) Monocytes (%) (Auto) 3 % (0-9) Eosinophils (%) (Auto) 0 % (0-3) Basophils (%) (Auto) 1 % (0-3) Neutrophils # (Auto) 2.8 x10^3/uL (1.8-7.7) Lymphocytes # (Auto) 0.5 x10^3/uL (1.0-4.8) Monocytes # (Auto) 0.1 x10^3/uL (0.0-1.1) Eosinophils # (Auto) 0.0 x10^3/uL (0.0-0.7) Basophils # (Auto) 0.0 x10^3/uL (0.0-0.2) Sodium Level 144 mmol/L (136-145) Potassium Level 4.5 mmol/L (3.5-5.1) Chloride Level 110 mmol/L (98-107) Carbon Dioxide Level 10 mmol/L (21-32) Anion Gap 24 (6-14) Blood Urea Nitrogen 161 mg/dL (8-26) Creatinine 7.9 mg/dL (0.7-1.3) Estimated GFR (Cockcroft-Gault) 6.8 BUN/Creatinine Ratio 20 (6-20) Glucose Level 120 mg/dL (70-99) Calcium Level 7.0 mg/dL (8.5-10.1) Magnesium Level 1.9 mg/dL (1.8-2.4) Total Bilirubin 0.4 mg/dL (0.2-1.0) Aspartate Amino Transf (AST/SGOT) 87 U/L (15-37) Alanine Aminotransferase (ALT/SGPT) 21 U/L (16-63) Alkaline Phosphatase 76 U/L (46-116) Creatine Kinase 2141 U/L (39-308) Total Protein 7.2 g/dL (6.4-8.2) Albumin 2.9 g/dL (3.4-5.0) Albumin/Globulin Ratio 0.7 (1.0-1.7) O2 Saturation 86 % (92-99) Arterial Blood pH 7.40 (7.35-7.45) Arterial Blood pCO2 at Patient Temp 17 mmHg (35-46) Arterial Blood pO2 at Patient Temp 57 mmHg (65-108) Arterial Blood HCO3 10 mmol/L (21-28) Arterial Blood Base Excess -13 mmol/L (-3-3) FiO2 100 Laboratory Tests Test 06/12/20 13:56 06/12/20 20:45 06/12/20 21:25 06/13/20 05:00 Red Blood Count 2.71 x10^6/uL (4.30-5.70) 2.75 x10^6/uL (4.30-5.70) Absolute Reticulocyte Count 0.033 x10^6/uL (0.020-0.120) Percent Reticulocyte Count 1.2 % (0.5-2.3) Immature Reticulocyte Fraction 0.24 (0.20-0.60) Potassium Level 4.1 mmol/L (3.5-5.1) 4.5 mmol/L (3.5-5.1) Calcium Level 7.1 mg/dL (8.5-10.1) 7.0 mg/dL (8.5-10.1) Magnesium Level 0.9 mg/dL (1.8-2.4) 1.7 mg/dL (1.8-2.4) 1.9 mg/dL (1.8-2.4) Iron Level 27 ug/dL (65-175) Total Iron Binding Capacity 242 ug/dL (250-450) Iron Saturation 11 % (15-34) Ferritin 1418 ng/mL (26-388) Creatine Kinase 1870 U/L (39-308) 2141 U/L (39-308) O2 Saturation 86 % (92-99) Arterial Blood pH 7.38 (7.35-7.45) Arterial Blood pH (Temp corrected) 7.35 Arterial Blood pCO2 at Patient Temp 16 mmHg (35-46) Arterial Blood pCO2 (Temp correct) 18 mmHg Arterial Blood pO2 at Patient Temp 56 mmHg (65-108) Arterial Blood pO2 (Temp corrected) 66 mmHg Arterial Blood HCO3 10 mmol/L (21-28) Arterial Blood Base Excess -14 mmol/L (-3-3) FiO2 100 White Blood Count 3.4 x10^3/uL (4.0-11.0) Hemoglobin 7.9 g/dL (13.0-17.5) Hematocrit 23.9 % (39.0-53.0) Mean Corpuscular Volume 87 fL (79-100) Mean Corpuscular Hemoglobin 29 pg (25-35) Mean Corpuscular Hemoglobin Concent 33 g/dL (31-37) Red Cell Distribution Width 14.3 % (11.5-14.5) Platelet Count 137 x10^3/uL (140-400) Neutrophils (%) (Auto) 82 % (31-73) Lymphocytes (%) (Auto) 14 % (24-48) Monocytes (%) (Auto) 3 % (0-9) Eosinophils (%) (Auto) 0 % (0-3) Basophils (%) (Auto) 1 % (0-3) Neutrophils # (Auto) 2.8 x10^3/uL (1.8-7.7) Lymphocytes # (Auto) 0.5 x10^3/uL (1.0-4.8) Monocytes # (Auto) 0.1 x10^3/uL (0.0-1.1) Eosinophils # (Auto) 0.0 x10^3/uL (0.0-0.7) Basophils # (Auto) 0.0 x10^3/uL (0.0-0.2) Sodium Level 144 mmol/L (136-145) Chloride Level 110 mmol/L (98-107) Carbon Dioxide Level 10 mmol/L (21-32) Anion Gap 24 (6-14) Blood Urea Nitrogen 161 mg/dL (8-26) Creatinine 7.9 mg/dL (0.7-1.3) Estimated GFR (Cockcroft-Gault) 6.8 BUN/Creatinine Ratio 20 (6-20) Glucose Level 120 mg/dL (70-99) Total Bilirubin 0.4 mg/dL (0.2-1.0) Aspartate Amino Transf (AST/SGOT) 87 U/L (15-37) Alanine Aminotransferase (ALT/SGPT) 21 U/L (16-63) Alkaline Phosphatase 76 U/L (46-116) Total Protein 7.2 g/dL (6.4-8.2) Albumin 2.9 g/dL (3.4-5.0) Albumin/Globulin Ratio 0.7 (1.0-1.7) Test 06/13/20 08:23 O2 Saturation 86 % (92-99) Arterial Blood pH 7.40 (7.35-7.45) Arterial Blood pCO2 at Patient Temp 17 mmHg (35-46) Arterial Blood pO2 at Patient Temp 57 mmHg (65-108) Arterial Blood HCO3 10 mmol/L (21-28) Arterial Blood Base Excess -13 mmol/L (-3-3) FiO2 100 Medications Active Scripts Medications Dose Route/Sig Max Daily Dose Days Date Category Keflex (Cephalexin) 500 Mg Capsule 1 Cap PO TID 07/30/19 Rx Vitamin C (Ascorbic Acid) 500 Mg Tablet 500 Mg PO DAILY 07/30/19 Rx Mupirocin Ointment (Mupirocin) 22 Gm Oint...g. 1 Oh NS BID 07/30/19 Rx Thera-M Tablet (Multivits,Ca,Minerals/Iron/Fa) 1 Each Tablet 1 Tab PO DAILY 07/30/19 Rx Seroquel (Quetiapine Fumarate) 25 Mg Tablet 1 Tab PO QHS 07/29/19 Reported Ropinirole Hcl 4 Mg Tablet 4 Mg PO BID 07/29/19 Reported Atorvastatin Calcium 20 Mg Tablet 20 Mg PO HS 07/29/19 Reported Sinemet 25-100 Mg Tablet (Carbidopa/Levodopa) 1 Each Tablet 1 Tab PO QID PRN 07/29/19 Reported Impression . Acute hypoxic resp. failure due to COVID-19 pneumonia/ ARDS OFELIA on CKD due to COVID-19 Worsening metabolic acidosis Abnormal D-dimer due to sepsis/ COVID/ neg dopplers COVID-19 Fever Leukopenia Electrolyte imbalance Dementia [facility] resident Plan . Continue vapotherm, 100%FIO2 as long as we can avoid intubation Needs emergent HD IV bicarb for now Continue Zosyn, renal dosing will consider anti-IL6/ Toci Plasma administration Awaiting dialysis Critically ill Prognosis very poor Discussed with DPOA ( [employer] Cheyenne Gomez). Explained prognosis. She agrees with present care. I recommended no intubation/ CPR. She agrees .She needs in writing from two physicians stating this would be in his best interest. Will email document today Discussed with nursing staff cct 40 min MENDEL AUGUST MD Jun 13, 2020 09:05
[2020-06-13] MEDS ORDERED: LIDOCAINE WITH 8.4% SOD BICARB 3 ML DISP.SYRIN. ONE (09:56)
--- NOTE | 2020-06-13 10:05 | CONS ---
DATE OF CONSULTATION: 06/13/2020 REFERRING PHYSICIAN: Dillan Cifuentes MD REASON FOR CONSULTATION: COVID-19 infection. HISTORY OF PRESENT ILLNESS: A 69-year-old male, a long-term resident, unable to give history, admitted to ICU with fever and altered mental status. He was found to be hypoxic, COVID-19 was negative, currently on 40% Vapotherm. White count on presentation was 3.8, hemoglobin of 7.8, platelets of 131. Lymphopenia. OFELIA with creatinine of 6, BUN of 141, bicarbonate of 14. CK of 1237. AST is 59. BNP of 1500. Albumin of 3.3, lipase of 504. Lactate of 1.0, calcium of 5.7. Chest x-ray showed ill-defined bibasilar opacities unchanged, widening of superior mediastinum may relate to tortuous thoracic aortic aneurysm. Lower extremity ultrasound shows normal ultrasound exam. No evidence of DVT. Blood cultures were done. Fecal occult blood is pending. The patient was started on Zosyn. ID consult has been requested for further management. This morning, the patient remains on Vapotherm, remains in COVID-19 isolation. Awaiting Trialysis catheter placement per RN. He continues to say he is thirsty, but he is unable to give much details. PAST MEDICAL HISTORY: Dementia, Parkinson's, pressure ulcer left heel, DJD, hypertension. FAMILY HISTORY: As per HPI. SOCIAL HISTORY: No smoking or ETOH. [facility] resident. CURRENT MEDICATIONS: Zosyn, diltiazem, multivitamin, ascorbic acid, ropinirole, quetiapine, mupirocin, docusate, famotidine, heparin, carbidopa/levodopa, bisacodyl. PHYSICAL EXAMINATION: VITAL SIGNS: Temperature 100, pulse 89, respiratory rate 32, blood pressure 85/65, oxygen saturation 95% on 40% Vapotherm, T-max 103.3. GENERAL: Alert, awake male, in no acute distress. HEENT: Normocephalic, atraumatic, anicteric, on Vapotherm. No oral lesions. NECK: Supple. LUNGS: Decreased breath sounds anteriorly. No wheezing. HEART: S1, S2. ABDOMEN: Soft, nontender. Bowel sounds present. EXTREMITIES: No edema, no cyanosis, no mottling. GENITOURINARY: Catalan in place. DERMATOLOGIC: Warm, dry. No generalized rash. NEUROLOGIC: Alert, awake, moves all 4 extremities, mittens in place. LABORATORY DATA: COVID-19 positive. WBC 3.4, hemoglobin 7.9, hematocrit 23.9, platelets 137. Sodium 140, potassium 4.2, chloride 106, bicarbonate 16, BUN 141, creatinine 8.4, glucose 102, lactate 1.0, calcium 5.7, total bilirubin 0.3, AST 66, ALT 13, alkaline phosphatase 80, albumin 3.2. Procalcitonin 0.68. Lipase 504. BNP 1500. Troponin normal. IMAGING: Chest x-ray as above. Lower extremity ultrasound negative for DVT. IMPRESSION: 1. Fever. 2. COVID-19 infection. 3. Acute hypoxic respiratory failure, on Vapotherm. 4. Acute kidney injury and metabolic acidosis. 5. Electrolyte abnormalities. 6. Dementia. 7. Rhabdomyolysis. 8. Parkinson's disease. 9. [facility] resident. 10. Mild thrombocytopenia. 11. Left hip pressure wound. RECOMMENDATIONS: 1. Continue supportive care. 2. Continue Zosyn, renal dosing. 3. Initiate plasma if DPOA gives consent. Consider Remdesivir. 4. Follow up labs and cultures. 6. Critically ill. 7. Prognosis is very poor. 8. Pt os been initiated for dialysis today Discussed with nursing staff and Dr Linda.. Thank you for allowing me to participate in this patient's care. If you have any questions, do not hesitate to contact me. Discussed with nursing staff. CATA HDEZ MD DR: CAROLYNE/polly JOB#: [id number] / [id number] AGNES
--- NOTE | 2020-06-13 10:05 | CONS ---
DATE OF CONSULTATION: PULMONARY CONSULTATION ATTENDING PHYSICIAN: Dr. Cifuentes. REASON FOR CONSULTATION: Respiratory failure. HISTORY OF PRESENT ILLNESS: The patient is a 69-year-old male who lives at the residential. He was brought into the hospital with dyspnea and hypoxia along with fever. He was also noted to have some altered mental status and OFELIA. Initially he was on 6 liters nasal cannula, but then required 100% nonrebreather mask. His chest x-ray showed mild patchy infiltrates suggestive of COVID-19. They were very faint. He also had an abnormal superior mediastinal widening on the left side suggestive of likely thoracic aortic aneurysm The patient is in OFELIA as well; however, he is making urine. COVID testing is pending. PAST MEDICAL HISTORY: History of Parkinson's; history of pressure ulcer, left hip. PAST SURGICAL HISTORY: Unknown. FAMILY HISTORY: Alzheimer's and hypertension. SOCIAL HISTORY: Nonsmoker. Lives in residential. ALLERGIES: None. MEDICATIONS: All reviewed as listed in the [facility] including antibiotic, Zosyn. REVIEW OF SYSTEMS: Unable to obtain from the patient. PHYSICAL EXAMINATION: VITAL SIGNS: His blood pressure is stable. Pulse ox 97% on 15 liters. He is afebrile since in the hospital but his T-max was 100.8. A full physical exam was not performed due to COVID pandemia. He is in no obvious respiratory distress based on visual exam. He keeps keeping off his nonrebreather mask. No obvious skin rash. LABORATORY DATA: Reviewed. ABGs with a pH of 7.35, pCO2 of 21 and a pO2 of 86, a bicarbonate of 11 on 100% nonrebreather mask. His BUN is 141 and a creatinine of 6.4. Lactic acid 5.7. Procalcitonin 0.68. INR 1.2. White cell count 3.6, hemoglobin 7.5 and platelets are 123. IMPRESSION: 1. Acute hypoxic respiratory failure secondary to suspected COVID-19 pneumonia. 2. Abnormal chest x-ray with faint interstitial patchy infiltrates suggestive of COVID pneumonia. He also has widened mediastinum on the left side, likely related to thoracic aortic aneurysm. We will do a CT chest for confirmation once he is more stable. 3. Acute kidney injury could be on chronic kidney disease. 4. Anemia. 5. Leukopenia, likely related to viral infection. 6. Hypocalcemia. RECOMMENDATIONS: 1. Continue with present nonrebreather mask. At present, he does not need to be intubated. 2. Renal has been consulted. We will give bicarbonate in the meantime. 3. May need dialysis. 4. Replace calcium. 5. Continue empiric antibiotics. 6. COVID test is pending. If positive, we will do plasma. 7. DVT prophylaxis. 8. Stress ulcer prophylaxis. 9. Discussed with RN and we will follow along with you. Critical care time 35 minutes. MENDEL AUGUST MD DR: JAMEY/polly JOB#: [id number] / [id number]
--- NOTE | 2020-06-13 10:56 | RAD ---
EXAM: CHEST ONE VIEW. HISTORY: Line placement. COMPARISON: 06/11/2020. FINDINGS: A frontal view of the chest is obtained. A right internal jugular hemodialysis catheter has its tip in the right atrium. There are changes of coronary artery bypass grafting. The aortic arch appears very tortuous and ectatic, consistent with a thoracic aortic aneurysm. The silhouette is stable. Mild basilar hazy opacities is mild pulmonary edema. There is no pneumothorax or clear pleural effusion. The heart is not enlarged. IMPRESSION: 1. Correlate for mild pulmonary edema. 2. 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 Correlate for a known diagnosis. Electronically signed by: Noemi Martel MD (06/13/2020 10:53 AM) [facility]
[2020-06-13] MEDS ORDERED: LIDOCAINE WITH 8.4% SOD BICARB 3 ML DISP.SYRIN. INJ ONE (11:00)
--- NOTE | 2020-06-13 11:27 | PDOC5 ---
CODE REPORT CODE REPORT CODE BLUE WAS CALLED Patient was in ICU, upon arrival to room, patient was not coded, CODE BLUE WAS CALLED BECAUSE HE WAS IN RESPIRATORY DISTRESS, need definitive airway. Indication: Respiratory failure Consent: Unable to give consent due to emergent nature. Medications Used: see nursing note Procedure: The patient was placed in the appropriate position. Intubation was performed using GLIDE SCOPE, CORD VISUALIZED, ET TUBE 7.5, MAC 4, ORALLY. ET TUBE WAS SECURED 22 AT LIP. Initial confirmation of placement included bilateral breath sounds, tube fogging, adequate chest rise, adequate pulse oximetry reading. A chest x-ray to verify correct placement of the tube showed appropriate tube position. The patient tolerated the procedure well. Complications: none. NETTIE COLLINS DO Jun 13, 2020 11:27
[2020-06-13] MEDS ORDERED: fentaNYL PF VIAL 100 MCG/2 ML VIAL IV PRN ×2 (11:30)
[2020-06-13] MEDS ORDERED: MIDAZOLAM 100mg/100ml NS BAG 100 ML IV PRN (11:30)
[2020-06-13] MEDS ORDERED: PROPOFOL 100 ML IV PRN (11:30)
[2020-06-13] MEDS ORDERED: MIDAZOLAM HCL/PF 5 MG/5 ML VIAL. ONE (11:33)
[2020-06-13] MEDS ORDERED: MIDAZOLAM HCL/PF 5 MG/5 ML VIAL. IV ONE (11:45)
--- NOTE | 2020-06-13 11:46 | RAD ---
EXAM: Chest, single view. HISTORY: Intubation. COMPARISON: 06/13/2020 FINDINGS: A frontal view of the chest is obtained. There is stable widening of the left superior mediastinum concerning for and aneurysm of the aortic arch. There is increased multifocal left lung consolidation and diffuse right lung interstitial infiltrate. There are stable median sternotomy changes. There is an endotracheal tube within the distal trachea. There is a right internal jugular catheter within the inferior right atrium. There is a nasogastric tube within the stomach. No pneumothorax is seen. There is a small left pleural effusion. IMPRESSION: 1. Increase in multifocal consolidated left lung infiltrate and diffuse right lung interstitial infiltrate. 2. Stable widening of the left superior mediastinum concerning for an aortic arch aneurysm. This can be better characterized with cross-sectional imaging. 3. Stable small left pleural effusion and postoperative changes. 4. Stable support lines and tubes. Electronically signed by: Mony Schaeffer MD (06/13/2020 11:43 AM) [id number]
--- NOTE | 2020-06-13 12:03 | NUR ---
At approximately 1100 pt had a tonic clonic seizure. Pt had just received a temporary dialysis catheter placement around 1030. Seizure lasted about 1 minute. 2mg Ativan was given STAT. This RN put on full PPE and went into the room. Upon entering the room pt became white, eyes rolled into back of his head and pt began agonally breathing. Pt was bagged by this RN. Pt HR dropped to 30s. Code blue was called to assist w/ pt. Pt intubated by Dr. Fountain. Tube placement verified by RT and RN. Pt jumped into Afib RVR and cardizem gtt was restarted. Dr. Cifuentes on the unit during incident. Pt sedated with Versed @ 5. Dr. Torres on the unit and initiated CRRT. Awaiting for dialysis nurse to initiate CRRT.
[2020-06-13] MEDS ORDERED: ETOMIDATE 20 MG/10 ML VIAL. IV ONE (12:09)
[2020-06-13] MEDS ORDERED: SUCCINYLCHOLINE 200 MG/10 ML VIAL. ONE (12:09)
[2020-06-13 12:23] LABS: BASE EXCESS ABG -10 mmol/L (-3-3); HCO3 ABG 13 mmol/L (21-28); PCO2 ABG 21 mmHg (35-46); PO2 ABG 88 mmHg (65-108); SAT O2 ABG 95 % (92-99)
[2020-06-13 12:28] LABS: FIO2 ABG 100%
--- NOTE | 2020-06-13 12:46 | PDOC2 ---
CONSULT Date of Consult Date of Consult DATE: 06/13/20 TIME: 12:45 Reason for Consult Reason for Consult: Atrial fibrillation Identification/Chief Complaint Chief Complaint Shortness of breath Source Source: Chart review History of Present Illness Reason for Visit: 69-year-old male [facility] resident was brought to the hospital with progressive shortness of breath, fever and hypoxia. He is currently being evaluated for COVID. Earlier today, he was intubated for seizure and respiratory distress. Patient went into atrial fibrillation with RVR yesterday and was started on Cardizem drip. This was held this morning for bradycardia. Presently, he is back in sinus rhythm. Past Medical History CENTRAL NERVOUS SYSTEM: Other (Parkinson's disease, dementia) Musculoskeletal: Osteoarthritis Past Surgical History Past Surgical History: No pertinent history Family History Family History: Alzheimer's Disease, Hypertension Social History No ALCOHOL: none Drugs: None Current Problem List Problem List Problems Medical Problems: (1) Profound anemia Status: Acute (2) Renal failure Status: Acute (3) Respiratory failure Status: Acute (4) Suspected COVID-19 virus infection Status: Acute Current Medications Current Medications Current Medications Piperacillin Sod/ Tazobactam Sod 4.5 gm/Sodium Chloride 100 ml @ 200 mls/hr 1X ONCE IV Last administered on 06/11/20at 15:24; Start 06/11/20 at 15:30; Stop 06/11/20 at 15:59; Status DC Sodium Chloride 1,000 ml @ 1,000 mls/hr 1X ONCE IV Last administered on at 15:23; Start 06/11/20 at 15:00; Stop 06/11/20 at 15:59; Status DC Acetaminophen (Tylenol) 1,000 mg 1X ONCE PO Last administered on 06/11/20at 15:23; Start 06/11/20 at 15:30; Stop 06/11/20 at 15:31; Status DC Ondansetron HCl (Zofran) 4 mg PRN Q8HRS PRN IV NAUSEA/VOMITING; Start 06/11/20 at 16:15; Stop 06/12/20 at 16:14; Status DC Sodium Chloride 1,000 ml @ 125 mls/hr Q8H IV ; Start 06/11/20 at 16:07; Stop 06/11/20 at 18:50; Status DC Piperacillin Sod/ Tazobactam Sod (Zosyn Per Pharmacy) 1 each PRN DAILY PRN MC SEE COMMENTS; Start 06/11/20 at 18:00 Acetaminophen (Tylenol) 650 mg PRN Q6HRS PRN PO Headaches, Temp > 101.5'; Start 06/11/20 at 18:00 Famotidine (Pepcid Vial) 20 mg DAILY IVP Last administered on 06/13/20at 08:39; Start 06/11/20 at 21:00 Info (Icu Electrolyte Protocol) 1 ea DAILY MC ; Start 06/12/20 at 09:00 Heparin Sodium (Porcine) (Heparin Sodium) 5,000 unit Q8HRS SQ Last administered on 06/13/20at 05:24; Start 06/11/20 at 18:30 Sodium Chloride (Normal Saline Flush) 3 ml QSHIFT PRN IV AFTER MEDS AND BLOOD DRAWS; Start 06/11/20 at 18:00 Sodium Chloride 1,000 ml @ 100 mls/hr Q10H IV Last administered on 06/11/20at 20:35; Start 06/11/20 at 17:57; Stop 06/12/20 at 14:12; Status DC Docusate Sodium (Colace) 100 mg BID PO ; Start 06/11/20 at 21:00 Bisacodyl (Dulcolax Supp) 10 mg PRN DAILY PRN OR CONSTIPATION; Start 06/11/20 at 18:00 Ascorbic Acid (Vitamin C) 500 mg DAILY PO ; Start 06/12/20 at 09:00 Carbidopa/Levodopa (Sinemet 25/100) 1 tab QID PO ; Start 06/11/20 at 18:15 Multivitamins (Thera M Plus) 1 tab DAILY PO ; Start 06/12/20 at 09:00 Mupirocin (Bactroban) 1 oh BID NS Last administered on 06/12/20at 21:00; Start 06/11/20 at 21:00 Quetiapine Fumarate (SEROquel) 25 mg QHS PO ; Start 06/11/20 at 21:00 Ropinirole HCl (Requip) 4 mg BID PO ; Start 06/11/20 at 21:00 Piperacillin Sod/ Tazobactam Sod 2.25 gm/Sodium Chloride 50 ml @ 100 mls/hr Q6HRS IV Last administered on 06/13/20at 05:22; Start 06/11/20 at 18:30; Stop 06/13/20 at 08:36; Status DC Calcium Chloride 2000 mg/Sodium Chloride 120 ml @ 240 mls/hr 1X ONCE IV Last administered on 06/12/20at 07:39; Start 06/12/20 at 07:00; Stop 06/12/20 at 07:29; Status DC Amino Acids/ Glycerin/ Electrolytes 1,000 ml @ 80 mls/hr [id number] IV Last administered on 06/13/20at 02:52; Start 06/12/20 at 14:15 Diltiazem HCl 125 mg/Sodium Chloride 125 ml @ 5 mls/hr CONT PRN IV SEE I/O RECORD; Start 06/12/20 at 18:00 Diltiazem HCl (Cardizem Iv Push) 5 mg 1X ONCE IVP Last administered on 06/12/20at 17:59; Start 06/12/20 at 18:00; Stop 06/12/20 at 18:01; Status DC Magnesium Sulfate 50 ml @ 25 mls/hr 1X ONCE IV Last administered on 06/12/20at 18:33; Start 06/12/20 at 18:00; Stop 06/12/20 at 19:59; Status DC Morphine Sulfate (Morphine Sulfate) 2 mg 1X ONCE IVP Last administered on 06/12/20at 18:34; Start 06/12/20 at 18:15; Stop 06/12/20 at 18:16; Status DC Furosemide (Lasix) 40 mg 1X ONCE IVP Last administered on 06/12/20at 18:33; Start 06/12/20 at 18:30; Stop 06/12/20 at 18:31; Status DC Acetaminophen (Tylenol Supp) 650 mg PRN Q6HRS PRN OR MILD PAIN / TEMP > 100.3'F Last administered on 06/13/20at 05:23; Start 06/12/20 at 18:45 Sterile Water (WATER for RESP) 1,000 ml CONT PRN INH VIA VAPOTHERM DEVICE Last administered on 06/13/20at 02:45; Start 06/12/20 at 19:00 Sodium Bicarbonate 150 meq/Dextrose 1,150 ml @ 0 mls/hr 1X ONCE IV Last administered on 06/13/20at 06:47; Start 06/13/20 at 06:30; Stop 06/13/20 at 06:31; Status DC Sodium Bicarbonate (Sodium Bicarb Adult 8.4% Syr) 100 meq 1X ONCE IV Last administered on 06/13/20at 08:39; Start 06/13/20 at 08:45; Stop 06/13/20 at 08:47; Status DC Piperacillin Sod/ Tazobactam Sod 2.25 gm/Sodium Chloride 50 ml @ 100 mls/hr Q8H IV ; Start 06/13/20 at 14:00 Lidocaine HCl (Buffered Lidocaine 1%) 3 ml STK-MED ONCE .ROUTE ; Start 06/13/20 at 09:56; Stop 06/13/20 at 09:56; Status DC Lorazepam (Ativan Inj) 2 mg 1X ONCE IVP Last administered on 06/13/20at 11:41; Start 06/13/20 at 11:00; Stop 06/13/20 at 11:01; Status DC Lidocaine HCl (Buffered Lidocaine 1%) 4 ml 1X ONCE INJ Last administered on 06/13/20at 11:00; Start 06/13/20 at 11:00; Stop 06/13/20 at 11:01; Status DC Fentanyl Citrate 30 ml @ 0 mls/hr CONT PRN IV SEE PROTOCOL; Start 06/13/20 at 11:30 Propofol 100 ml @ 0 mls/hr CONT PRN IV SEE PROTOCOL; Start 06/13/20 at 11:30 Fentanyl Citrate (Fentanyl 2ml Vial) 25 mcg PRN Q1HR PRN IV SEE COMMENTS; Start 06/13/20 at 11:30 Fentanyl Citrate (Fentanyl 2ml Vial) 50 mcg PRN Q1HR PRN IV SEE COMMENTS; Start 06/13/20 at 11:30 Chlorhexidine Gluconate (Peridex) 15 ml BID MM ; Start 06/13/20 at 21:00 Midazolam HCl 100 ml @ 0 mls/hr CONT PRN IV SEE PROTOCOL Last administered on 06/13/20at 11:40; Start 06/13/20 at 11:30 Midazolam HCl (Versed) 5 mg STK-MED ONCE .ROUTE ; Start 06/13/20 at 11:33; Stop 06/13/20 at 11:33; Status DC Midazolam HCl (Versed) 5 mg 1X ONCE IV Last administered on 06/13/20at 11:38; Start 06/13/20 at 11:45; Stop 06/13/20 at 11:46; Status DC Etomidate (Amidate) 20 mg STK-MED ONCE IV ; Start 06/13/20 at 12:09; Stop 06/13/20 at 12:09; Status DC Succinylcholine Chloride (Anectine) 200 mg STK-MED ONCE .ROUTE ; Start 06/13/20 at 12:09; Stop 06/13/20 at 12:09; Status DC Active Scripts Active Keflex (Cephalexin) 500 Mg Capsule 1 Cap PO TID Vitamin C (Ascorbic Acid) 500 Mg Tablet 500 Mg PO DAILY Mupirocin Ointment (Mupirocin) 22 Gm Oint...g. 1 Oh NS BID Thera-M Tablet (Multivits,Ca,Minerals/Iron/Fa) 1 Each Tablet 1 Tab PO DAILY Reported Seroquel (Quetiapine Fumarate) 25 Mg Tablet 1 Tab PO QHS Ropinirole Hcl 4 Mg Tablet 4 Mg PO BID Atorvastatin Calcium 20 Mg Tablet 20 Mg PO HS Sinemet 25-100 Mg Tablet (Carbidopa/Levodopa) 1 Each Tablet 1 Tab PO QID PRN Allergies Allergies: Coded Allergies: No Known Drug Allergies (Unverified , 07/28/19) ROS Review of System Cannot be obtained since he is intubated Physical Exam General: Other (Intubated and sedated) HEENT: Atraumatic Lungs: Other (Decreased air entry bases) Heart: Regular rate Abdomen: Soft Extremities: No edema Vitals VITALS Vital Signs Date Time Temp Pulse Resp B/P (MAP) Pulse Ox O2 Delivery O2 Flow Rate FiO2 06/13/20 12:00 Mechanical Ventilator 06/13/20 12:00 82 25 89/53 (65) 100 06/13/20 11:00 98.2 40.0 98.2 Labs Labs Laboratory Tests Test 06/11/20 15:10 06/11/20 15:30 06/11/20 16:53 06/11/20 21:50 White Blood Count 3.8 x10^3/uL (4.0-11.0) Red Blood Count 2.60 x10^6/uL (4.30-5.70) Hemoglobin 7.6 g/dL (13.0-17.5) Hematocrit 22.0 % (39.0-53.0) Mean Corpuscular Volume 85 fL (79-100) Mean Corpuscular Hemoglobin 29 pg (25-35) Mean Corpuscular Hemoglobin Concent 34 g/dL (31-37) Red Cell Distribution Width 13.8 % (11.5-14.5) Platelet Count 131 x10^3/uL (140-400) Neutrophils (%) (Auto) 83 % (31-73) Lymphocytes (%) (Auto) 11 % (24-48) Monocytes (%) (Auto) 5 % (0-9) Eosinophils (%) (Auto) 0 % (0-3) Basophils (%) (Auto) 0 % (0-3) Neutrophils # (Auto) 3.1 x10^3/uL (1.8-7.7) Lymphocytes # (Auto) 0.4 x10^3/uL (1.0-4.8) Monocytes # (Auto) 0.2 x10^3/uL (0.0-1.1) Eosinophils # (Auto) 0.0 x10^3/uL (0.0-0.7) Basophils # (Auto) 0.0 x10^3/uL (0.0-0.2) Prothrombin Time 14.6 SEC (11.7-14.0) Prothromb Time International Ratio 1.2 (0.8-1.1) Activated Partial Thromboplast Time 38 SEC (24-38) Fibrinogen 279 mg/dL (200-440) D-Dimer (Codi) 18.00 ug/mlFEU (0.00-0.50) Sodium Level 135 mmol/L (136-145) Potassium Level 4.1 mmol/L (3.5-5.1) Chloride Level 101 mmol/L (98-107) Carbon Dioxide Level 14 mmol/L (21-32) Anion Gap 20 (6-14) Blood Urea Nitrogen 141 mg/dL (8-26) Creatinine 6.0 mg/dL (0.7-1.3) Estimated GFR (Cockcroft-Gault) 9.4 BUN/Creatinine Ratio 24 (6-20) Glucose Level 130 mg/dL (70-99) Lactic Acid Level 1.0 mmol/L (0.4-2.0) Calcium Level 6.2 mg/dL (8.5-10.1) Transferrin 227 mg/dL (177-329) Total Bilirubin 0.3 mg/dL (0.2-1.0) Aspartate Amino Transf (AST/SGOT) 59 U/L (15-37) Alanine Aminotransferase (ALT/SGPT) 16 U/L (16-63) Alkaline Phosphatase 90 U/L (46-116) Creatine Kinase 1237 U/L (39-308) Troponin I Quantitative 0.038 ng/mL (0.000-0.055) C-Reactive Protein, Quantitative 80.6 mg/L (0-3.3) YV-Zso-F-Type Natriuretic Peptide 1500 pg/mL (0-124) Total Protein 7.7 g/dL (6.4-8.2) Albumin 3.3 g/dL (3.4-5.0) Albumin/Globulin Ratio 0.8 (1.0-1.7) Lipase 504 U/L (73-393) Procalcitonin 0.68 ng/mL (0.00-0.10) Thyroid Stimulating Hormone (TSH) 0.623 uIU/mL (0.358-3.74) Coronavirus (PCR) Detected (Not Detected) O2 Saturation 95 % (92-99) Arterial Blood pH 7.35 (7.35-7.45) Arterial Blood pCO2 at Patient Temp 21 mmHg (35-46) Arterial Blood pO2 at Patient Temp 86 mmHg (65-108) Arterial Blood HCO3 11 mmol/L (21-28) Arterial Blood Base Excess -13 mmol/L (-3-3) FiO2 100% nrb Urine Collection Type Unknown Urine Color Yellow Urine Clarity Clear Urine pH 5.0 (<5.0-8.0) Urine Specific [place] 1.015 (1.000-1.030) Urine Protein 30 mg/dL (NEG-TRACE) Urine Glucose (UA) Negative mg/dL (NEG) Urine Ketones (Stick) Negative mg/dL (NEG) Urine Blood Moderate (NEG) Urine Nitrite Negative (NEG) Urine Bilirubin Negative (NEG) Urine Urobilinogen Dipstick 0.2 mg/dL (0.2 mg/dL) Urine Leukocyte Esterase Negative (NEG) Urine RBC Occ /HPF (0-2) Urine WBC 0 /HPF (0-4) Urine Transitional Epithelial Cells Occ /LPF Urine Bacteria 0 /HPF (0-FEW) Test 06/12/20 05:00 06/12/20 13:56 7/25/20 20:45 06/12/20 21:25 White Blood Count 3.6 x10^3/uL (4.0-11.0) Red Blood Count 2.58 x10^6/uL (4.30-5.70) 2.71 x10^6/uL (4.30-5.70) Hemoglobin 7.5 g/dL (13.0-17.5) Hematocrit 22.0 % (39.0-53.0) Mean Corpuscular Volume 85 fL (79-100) Mean Corpuscular Hemoglobin 29 pg (25-35) Mean Corpuscular Hemoglobin Concent 34 g/dL (31-37) Red Cell Distribution Width 14.2 % (11.5-14.5) Platelet Count 123 x10^3/uL (140-400) Neutrophils (%) (Auto) 82 % (31-73) Lymphocytes (%) (Auto) 14 % (24-48) Monocytes (%) (Auto) 4 % (0-9) Eosinophils (%) (Auto) 0 % (0-3) Basophils (%) (Auto) 1 % (0-3) Neutrophils # (Auto) 2.9 x10^3/uL (1.8-7.7) Lymphocytes # (Auto) 0.5 x10^3/uL (1.0-4.8) Monocytes # (Auto) 0.1 x10^3/uL (0.0-1.1) Eosinophils # (Auto) 0.0 x10^3/uL (0.0-0.7) Basophils # (Auto) 0.0 x10^3/uL (0.0-0.2) Sodium Level 140 mmol/L (136-145) Potassium Level 4.2 mmol/L (3.5-5.1) 4.1 mmol/L (3.5-5.1) Chloride Level 106 mmol/L (98-107) Carbon Dioxide Level 16 mmol/L (21-32) Anion Gap 18 (6-14) Blood Urea Nitrogen 141 mg/dL (8-26) Creatinine 6.4 mg/dL (0.7-1.3) Estimated GFR (Cockcroft-Gault) 8.7 BUN/Creatinine Ratio 22 (6-20) Glucose Level 102 mg/dL (70-99) Calcium Level 5.7 mg/dL (8.5-10.1) 7.1 mg/dL (8.5-10.1) Total Bilirubin 0.3 mg/dL (0.2-1.0) Aspartate Amino Transf (AST/SGOT) 66 U/L (15-37) Alanine Aminotransferase (ALT/SGPT) 13 U/L (16-63) Alkaline Phosphatase 80 U/L (46-116) Total Protein 7.4 g/dL (6.4-8.2) Albumin 3.2 g/dL (3.4-5.0) Albumin/Globulin Ratio 0.8 (1.0-1.7) Absolute Reticulocyte Count 0.033 x10^6/uL (0.020-0.120) Percent Reticulocyte Count 1.2 % (0.5-2.3) Immature Reticulocyte Fraction 0.24 (0.20-0.60) Magnesium Level 0.9 mg/dL (1.8-2.4) 1.7 mg/dL (1.8-2.4) Iron Level 27 ug/dL (65-175) Total Iron Binding Capacity 242 ug/dL (250-450) Iron Saturation 11 % (15-34) Ferritin 1418 ng/mL (26-388) Creatine Kinase 1870 U/L (39-308) O2 Saturation 86 % (92-99) Arterial Blood pH 7.38 (7.35-7.45) Arterial Blood pH (Temp corrected) 7.35 Arterial Blood pCO2 at Patient Temp 16 mmHg (35-46) Arterial Blood pCO2 (Temp correct) 18 mmHg Arterial Blood pO2 at Patient Temp 56 mmHg (65-108) Arterial Blood pO2 (Temp corrected) 66 mmHg Arterial Blood HCO3 10 mmol/L (21-28) Arterial Blood Base Excess -14 mmol/L (-3-3) FiO2 100 Test 06/13/20 05:00 06/13/20 08:23 06/13/20 12:15 White Blood Count 3.4 x10^3/uL (4.0-11.0) Red Blood Count 2.75 x10^6/uL (4.30-5.70) Hemoglobin 7.9 g/dL (13.0-17.5) Hematocrit 23.9 % (39.0-53.0) Mean Corpuscular Volume 87 fL (79-100) Mean Corpuscular Hemoglobin 29 pg (25-35) Mean Corpuscular Hemoglobin Concent 33 g/dL (31-37) Red Cell Distribution Width 14.3 % (11.5-14.5) Platelet Count 137 x10^3/uL (140-400) Neutrophils (%) (Auto) 82 % (31-73) Lymphocytes (%) (Auto) 14 % (24-48) Monocytes (%) (Auto) 3 % (0-9) Eosinophils (%) (Auto) 0 % (0-3) Basophils (%) (Auto) 1 % (0-3) Neutrophils # (Auto) 2.8 x10^3/uL (1.8-7.7) Lymphocytes # (Auto) 0.5 x10^3/uL (1.0-4.8) Monocytes # (Auto) 0.1 x10^3/uL (0.0-1.1) Eosinophils # (Auto) 0.0 x10^3/uL (0.0-0.7) Basophils # (Auto) 0.0 x10^3/uL (0.0-0.2) Sodium Level 144 mmol/L (136-145) Potassium Level 4.5 mmol/L (3.5-5.1) Chloride Level 110 mmol/L (98-107) Carbon Dioxide Level 10 mmol/L (21-32) Anion Gap 24 (6-14) Blood Urea Nitrogen 161 mg/dL (8-26) Creatinine 7.9 mg/dL (0.7-1.3) Estimated GFR (Cockcroft-Gault) 6.8 BUN/Creatinine Ratio 20 (6-20) Glucose Level 120 mg/dL (70-99) Calcium Level 7.0 mg/dL (8.5-10.1) Magnesium Level 1.9 mg/dL (1.8-2.4) Total Bilirubin 0.4 mg/dL (0.2-1.0) Aspartate Amino Transf (AST/SGOT) 87 U/L (15-37) Alanine Aminotransferase (ALT/SGPT) 21 U/L (16-63) Alkaline Phosphatase 76 U/L (46-116) Creatine Kinase 2141 U/L (39-308) Total Protein 7.2 g/dL (6.4-8.2) Albumin 2.9 g/dL (3.4-5.0) Albumin/Globulin Ratio 0.7 (1.0-1.7) O2 Saturation 86 % (92-99) 95 % (92-99) Arterial Blood pH 7.40 (7.35-7.45) 7.41 (7.35-7.45) Arterial Blood pCO2 at Patient Temp 17 mmHg (35-46) 21 mmHg (35-46) Arterial Blood pO2 at Patient Temp 57 mmHg (65-108) 88 mmHg (65-108) Arterial Blood HCO3 10 mmol/L (21-28) 13 mmol/L (21-28) Arterial Blood Base Excess -13 mmol/L (-3-3) -10 mmol/L (-3-3) FiO2 100 100% Laboratory Tests Test 06/12/20 13:56 06/12/20 20:45 06/12/20 21:25 06/13/20 05:00 Red Blood Count 2.71 x10^6/uL (4.30-5.70) 2.75 x10^6/uL (4.30-5.70) Absolute Reticulocyte Count 0.033 x10^6/uL (0.020-0.120) Percent Reticulocyte Count 1.2 % (0.5-2.3) Immature Reticulocyte Fraction 0.24 (0.20-0.60) Potassium Level 4.1 mmol/L (3.5-5.1) 4.5 mmol/L (3.5-5.1) Calcium Level 7.1 mg/dL (8.5-10.1) 7.0 mg/dL (8.5-10.1) Magnesium Level 0.9 mg/dL (1.8-2.4) 1.7 mg/dL (1.8-2.4) 1.9 mg/dL (1.8-2.4) Iron Level 27 ug/dL (65-175) Total Iron Binding Capacity 242 ug/dL (250-450) Iron Saturation 11 % (15-34) Ferritin 1418 ng/mL (26-388) Creatine Kinase 1870 U/L (39-308) 2141 U/L (39-308) O2 Saturation 86 % (92-99) Arterial Blood pH 7.38 (7.35-7.45) Arterial Blood pH (Temp corrected) 7.35 Arterial Blood pCO2 at Patient Temp 16 mmHg (35-46) Arterial Blood pCO2 (Temp correct) 18 mmHg Arterial Blood pO2 at Patient Temp 56 mmHg (65-108) Arterial Blood pO2 (Temp corrected) 66 mmHg Arterial Blood HCO3 10 mmol/L (21-28) Arterial Blood Base Excess -14 mmol/L (-3-3) FiO2 100 White Blood Count 3.4 x10^3/uL (4.0-11.0) Hemoglobin 7.9 g/dL (13.0-17.5) Hematocrit 23.9 % (39.0-53.0) Mean Corpuscular Volume 87 fL (79-100) Mean Corpuscular Hemoglobin 29 pg (25-35) Mean Corpuscular Hemoglobin Concent 33 g/dL (31-37) Red Cell Distribution Width 14.3 % (11.5-14.5) Platelet Count 137 x10^3/uL (140-400) Neutrophils (%) (Auto) 82 % (31-73) Lymphocytes (%) (Auto) 14 % (24-48) Monocytes (%) (Auto) 3 % (0-9) Eosinophils (%) (Auto) 0 % (0-3) Basophils (%) (Auto) 1 % (0-3) Neutrophils # (Auto) 2.8 x10^3/uL (1.8-7.7) Lymphocytes # (Auto) 0.5 x10^3/uL (1.0-4.8) Monocytes # (Auto) 0.1 x10^3/uL (0.0-1.1) Eosinophils # (Auto) 0.0 x10^3/uL (0.0-0.7) Basophils # (Auto) 0.0 x10^3/uL (0.0-0.2) Sodium Level 144 mmol/L (136-145) Chloride Level 110 mmol/L (98-107) Carbon Dioxide Level 10 mmol/L (21-32) Anion Gap 24 (6-14) Blood Urea Nitrogen 161 mg/dL (8-26) Creatinine 7.9 mg/dL (0.7-1.3) Estimated GFR (Cockcroft-Gault) 6.8 BUN/Creatinine Ratio 20 (6-20) Glucose Level 120 mg/dL (70-99) Total Bilirubin 0.4 mg/dL (0.2-1.0) Aspartate Amino Transf (AST/SGOT) 87 U/L (15-37) Alanine Aminotransferase (ALT/SGPT) 21 U/L (16-63) Alkaline Phosphatase 76 U/L (46-116) Total Protein 7.2 g/dL (6.4-8.2) Albumin 2.9 g/dL (3.4-5.0) Albumin/Globulin Ratio 0.7 (1.0-1.7) Test 06/13/20 08:23 06/13/20 12:15 O2 Saturation 86 % (92-99) 95 % (92-99) Arterial Blood pH 7.40 (7.35-7.45) 7.41 (7.35-7.45) Arterial Blood pCO2 at Patient Temp 17 mmHg (35-46) 21 mmHg (35-46) Arterial Blood pO2 at Patient Temp 57 mmHg (65-108) 88 mmHg (65-108) Arterial Blood HCO3 10 mmol/L (21-28) 13 mmol/L (21-28) Arterial Blood Base Excess -13 mmol/L (-3-3) -10 mmol/L (-3-3) FiO2 100 100% Assessment/Plan Assessment/Plan 1. Acute hypoxic respiratory failure, probably COVID pneumonia. He is currently intubated and sedated. Pulmonary and ID teams following. 2. Atrial fibrillation, probably precipitated by #1. Cardizem drip was held earlier today for bradycardia. He is presently back in sinus rhythm. Patient was made comfort care earlier today. 3. Acute kidney injury and metabolic acidosis. Nephrology team was considering CRRT but was not initiated since he was made comfort care. 4. Parkinson's disease, dementia. Per IM Thank you for your consultation. NEERAJ RANKIN MD Jun 13, 2020 12:45
--- NOTE | 2020-06-13 13:06 | PDOC ---
SUBJECTIVE ROS Pt had had a tonic clonic seizure earlier today , HR dropped to 30's. Pt was intubated He went into Afib RVR and cardizem gtt was restarted. OBJECTIVE Vital Signs Vital Signs Date Time Temp Pulse Resp B/P (MAP) Pulse Ox O2 Delivery O2 Flow Rate FiO2 06/13/20 12:00 Mechanical Ventilator 06/13/20 12:00 82 25 89/53 (65) 100 06/13/20 11:00 98.2 40.0 98.2 I & 0 Intake and Output 06/13/20 07:00 Intake Total 2056 ml Output Total 1700 ml Balance 356 ml IV Total 1106 ml Other 950 ml Output Urine Total 1700 ml PHYSICAL EXAM Physical Exam GENERAL Intubated this am , on MV . HEENT: Intubated NECK: Supple. LUNGS: Decreased breath sounds anteriorly. No wheezing. HEART: S1, S2. ABDOMEN: Soft, nontender. Bowel sounds present. EXTREMITIES: No edema, no cyanosis, no mottling. GENITOURINARY: Catalan in place. DERMATOLOGIC: Warm, dry. No generalized rash. NEUROLOGIC: Intubated DIAGNOSIS/ASSESSMENT Assessment & Plan OFELIA - Suspect ATN, baseline Unknown Cr was 2.6 in Aug 2016, No interval labs available, ? 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 Pancytopenia- Parkinsonism Pt has been made comfort care per Court COMMENT/RELEVANT DATA Meds Current Medications Medications (Trade) Dose Ordered Sig/Abbey Start Time Stop Time Status Last Admin Dose Admin Acetaminophen (Tylenol Supp) 650 mg PRN Q6HRS PRN 06/12/20 18:45 06/13/20 05:23 650 MG Acetaminophen (Tylenol) 650 mg PRN Q6HRS PRN 06/11/20 18:00 Amino Acids/ Glycerin/ Electrolytes 1,000 ml @ 80 mls/hr [id number] 06/12/20 14:15 06/13/20 02:52 80 MLS/HR Ascorbic Acid (Vitamin C) 500 mg DAILY 06/12/20 09:00 Bisacodyl (Dulcolax Supp) 10 mg PRN DAILY PRN 06/11/20 18:00 Calcium Chloride 2000 mg/Sodium Chloride 120 ml @ 240 mls/hr 1X ONCE 06/12/20 07:00 06/12/20 07:29 DC 06/12/20 07:39 240 MLS/HR Carbidopa/Levodopa (Sinemet 25/100) 1 tab QID 06/11/20 18:15 Chlorhexidine Gluconate (Peridex) 15 ml BID 06/13/20 21:00 Diltiazem HCl (Cardizem Iv Push) 5 mg 1X ONCE 06/12/20 18:00 06/12/20 18:01 DC 06/12/20 17:59 5 MG Diltiazem HCl 125 mg/Sodium Chloride 125 ml @ 5 mls/hr CONT PRN 06/12/20 18:00 Docusate Sodium (Colace) 100 mg BID 06/11/20 21:00 Etomidate (Amidate) 20 mg STK-MED ONCE 06/13/20 12:09 06/13/20 12:09 DC Famotidine (Pepcid Vial) 20 mg DAILY 06/11/20 21:00 06/13/20 08:39 20 MG Fentanyl Citrate (Fentanyl 2ml Vial) 50 mcg PRN Q1HR PRN 06/13/20 11:30 Furosemide (Lasix) 40 mg 1X ONCE 06/12/20 18:30 06/12/20 18:31 DC 06/12/20 18:33 40 MG Heparin Sodium (Porcine) (Heparin Sodium) 5,000 unit Q8HRS 06/11/20 18:30 06/13/20 05:24 5,000 UNIT Info (Icu Electrolyte Protocol) 1 ea DAILY 06/12/20 09:00 Lidocaine HCl (Buffered Lidocaine 1%) 4 ml 1X ONCE 06/13/20 11:00 06/13/20 11:01 DC 06/13/20 11:00 4 ML Lorazepam (Ativan Inj) 2 mg PRN Q4HRS PRN 06/13/20 13:00 Magnesium Sulfate 50 ml @ 25 mls/hr 1X ONCE 06/12/20 18:00 06/12/20 19:59 DC 06/12/20 18:33 25 MLS/HR Midazolam HCl (Versed) 5 mg 1X ONCE 06/13/20 11:45 06/13/20 11:46 DC 06/13/20 11:38 5 MG Morphine Sulfate (Morphine Sulfate) 4 mg PRN Q2HR PRN 06/13/20 13:00 Multivitamins (Thera M Plus) 1 tab DAILY 06/12/20 09:00 Mupirocin (Bactroban) 1 hernan BID 06/11/20 21:00 06/12/20 21:00 1 HERNAN Ondansetron HCl (Zofran) 4 mg PRN Q8HRS PRN 06/11/20 16:15 06/12/20 16:14 DC Piperacillin Sod/ Tazobactam Sod (Zosyn Per Pharmacy) 1 each PRN DAILY PRN 06/11/20 18:00 Piperacillin Sod/ Tazobactam Sod 2.25 gm/Sodium Chloride 50 ml @ 100 mls/hr Q8H 06/13/20 14:00 Piperacillin Sod/ Tazobactam Sod 4.5 gm/Sodium Chloride 100 ml @ 200 mls/hr 1X ONCE 06/11/20 15:30 06/11/20 15:59 DC 06/11/20 15:24 200 MLS/HR Propofol 100 ml @ 0 mls/hr CONT PRN 06/13/20 11:30 Quetiapine Fumarate (SEROquel) 25 mg QHS 06/11/20 21:00 Ropinirole HCl (Requip) 4 mg BID 06/11/20 21:00 Sodium Bicarbonate 150 meq/Dextrose 1,150 ml @ 0 mls/hr 1X ONCE 06/13/20 06:30 06/13/20 06:31 DC 06/13/20 06:47 75 MLS/HR Sodium Bicarbonate (Sodium Bicarb Adult 8.4% Syr) 100 meq 1X ONCE 06/13/20 08:45 06/13/20 08:47 DC 06/13/20 08:39 100 MEQ Sodium Chloride 1,000 ml @ 100 mls/hr Q10H 06/11/20 17:57 06/12/20 14:12 DC 06/11/20 20:35 100 MLS/HR Sodium Chloride (Normal Saline Flush) 3 ml QSHIFT PRN 06/11/20 18:00 Sterile Water (WATER for RESP) 1,000 ml CONT PRN 06/12/20 19:00 06/13/20 02:45 1,000 ML Succinylcholine Chloride (Anectine) 200 mg STK-MED ONCE 06/13/20 12:09 06/13/20 12:09 DC Lab Laboratory Tests Test 06/12/20 13:56 06/12/20 20:45 06/12/20 21:25 06/13/20 05:00 Red Blood Count 2.71 x10^6/uL (4.30-5.70) 2.75 x10^6/uL (4.30-5.70) Absolute Reticulocyte Count 0.033 x10^6/uL (0.020-0.120) Percent Reticulocyte Count 1.2 % (0.5-2.3) Immature Reticulocyte Fraction 0.24 (0.20-0.60) Potassium Level 4.1 mmol/L (3.5-5.1) 4.5 mmol/L (3.5-5.1) Calcium Level 7.1 mg/dL (8.5-10.1) 7.0 mg/dL (8.5-10.1) Magnesium Level 0.9 mg/dL (1.8-2.4) 1.7 mg/dL (1.8-2.4) 1.9 mg/dL (1.8-2.4) Iron Level 27 ug/dL (65-175) Total Iron Binding Capacity 242 ug/dL (250-450) Iron Saturation 11 % (15-34) Ferritin 1418 ng/mL (26-388) Creatine Kinase 1870 U/L (39-308) 2141 U/L (39-308) O2 Saturation 86 % (92-99) Arterial Blood pH 7.38 (7.35-7.45) Arterial Blood pH (Temp corrected) 7.35 Arterial Blood pCO2 at Patient Temp 16 mmHg (35-46) Arterial Blood pCO2 (Temp correct) 18 mmHg Arterial Blood pO2 at Patient Temp 56 mmHg (65-108) Arterial Blood pO2 (Temp corrected) 66 mmHg Arterial Blood HCO3 10 mmol/L (21-28) Arterial Blood Base Excess -14 mmol/L (-3-3) FiO2 100 White Blood Count 3.4 x10^3/uL (4.0-11.0) Hemoglobin 7.9 g/dL (13.0-17.5) Hematocrit 23.9 % (39.0-53.0) Mean Corpuscular Volume 87 fL (79-100) Mean Corpuscular Hemoglobin 29 pg (25-35) Mean Corpuscular Hemoglobin Concent 33 g/dL (31-37) Red Cell Distribution Width 14.3 % (11.5-14.5) Platelet Count 137 x10^3/uL (140-400) Neutrophils (%) (Auto) 82 % (31-73) Lymphocytes (%) (Auto) 14 % (24-48) Monocytes (%) (Auto) 3 % (0-9) Eosinophils (%) (Auto) 0 % (0-3) Basophils (%) (Auto) 1 % (0-3) Neutrophils # (Auto) 2.8 x10^3/uL (1.8-7.7) Lymphocytes # (Auto) 0.5 x10^3/uL (1.0-4.8) Monocytes # (Auto) 0.1 x10^3/uL (0.0-1.1) Eosinophils # (Auto) 0.0 x10^3/uL (0.0-0.7) Basophils # (Auto) 0.0 x10^3/uL (0.0-0.2) Sodium Level 144 mmol/L (136-145) Chloride Level 110 mmol/L (98-107) Carbon Dioxide Level 10 mmol/L (21-32) Anion Gap 24 (6-14) Blood Urea Nitrogen 161 mg/dL (8-26) Creatinine 7.9 mg/dL (0.7-1.3) Estimated GFR (Cockcroft-Gault) 6.8 BUN/Creatinine Ratio 20 (6-20) Glucose Level 120 mg/dL (70-99) Total Bilirubin 0.4 mg/dL (0.2-1.0) Aspartate Amino Transf (AST/SGOT) 87 U/L (15-37) Alanine Aminotransferase (ALT/SGPT) 21 U/L (16-63) Alkaline Phosphatase 76 U/L (46-116) Total Protein 7.2 g/dL (6.4-8.2) Albumin 2.9 g/dL (3.4-5.0) Albumin/Globulin Ratio 0.7 (1.0-1.7) Test 06/13/20 08:23 06/13/20 12:15 O2 Saturation 86 % (92-99) 95 % (92-99) Arterial Blood pH 7.40 (7.35-7.45) 7.41 (7.35-7.45) Arterial Blood pCO2 at Patient Temp 17 mmHg (35-46) 21 mmHg (35-46) Arterial Blood pO2 at Patient Temp 57 mmHg (65-108) 88 mmHg (65-108) Arterial Blood HCO3 10 mmol/L (21-28) 13 mmol/L (21-28) Arterial Blood Base Excess -13 mmol/L (-3-3) -10 mmol/L (-3-3) FiO2 100 100% Results All relevant outside records, renal labs, imaging studies, telemetry/EKG's were reviewed. Justicifation of Admission Dx: Justifications for Admission: Justification of Admission Dx: JANES Cooper MD Jun 13, 2020 13:06
[2020-06-13] MEDS: MORPHINE SULFATE 4 MG/ML VIAL. IV PRN ×3 (13:26→18:42)
[2020-06-13] MEDS ORDERED: GLYCOPYRROLATE 1 MG/5 ML VIAL. IV ONE (13:30)
--- NOTE | 2020-06-13 13:36 | NUR ---
Per court order, pt moved to comfort measures only. Dr. Cifuentes put in comfort measure orders. Pt extubated at 1327. PRN medications administered.
[2020-06-13] MEDS ORDERED: PIPERACILLIN/TAZOBACTAM 2.25 GM in IV NORMAL SALINE 50ML 50 ML IV SCH (14:00)
--- NOTE | 2020-06-13 15:03 | NUR ---
Called a referral into [facility]. Pt not eligible for donation. Requesting to call with TOD.
--- NOTE | 2020-06-13 19:11 | NUR ---
Pt @ 184. Pt pronounced by two RN's. All doctors on case notified of findings. Left VM with Cheyenne Gomez-- requesting her to return the phone call. Called [facility] to inform them of findings. [facility] called with LIBBY. Report given to Kaci RN on security shift supervisor.
--- NOTE | 2020-06-13 20:00 | NUR ---
Legal guardian Cheyenne Cartwright called back and l informed her of patient' . She said that patient does not have a burial plan in place , that she will check with the [facility] patient [facility] to determine the plan for burial. She said she will call the [facility] supervisor poultry processing tomorrow with further details.
--- NOTE | 2020-06-13 20:30 | NUR ---
Post mortem care was done and pt was placed in double body bags per protocol.Pt's body was taken down to the Morgue, with his personal belongings (dentures and Stewart), and paperwork.
[2020-06-13] MEDS ORDERED: CHLORHEXIDINE 0.12% 15 ML MOUTHWASH. MM SCH (21:00)
--- NOTE | 2020-06-15 03:37 | EKG ---
[facility] [address] [place] [address] Test Date: 2020-06-11 Test Time: 15:51:34 Pat Name: CHEL YE Department: Room: Gender: M Linesperson: : 1950 Requested By: STEFAN MOCK Order Number: [id number] Reading MD: Measurements Intervals [place] Rate: 87 P: 31 NM: 150 QRS: -12 QRSD: 102 T: -27 QT: 376 QTc: 459 Interpretive Statements SINUS RHYTHM LEFTWARD AXIS ST & T ABNORMALITY, CONSIDER ANTERIOR ISCHEMIA OR LEFT VENTRICULAR STRAIN ABNORMAL ECG RI6.01 No previous ECG available for comparison
--- NOTE | 2020-06-15 13:15 | RAD ---
Procedures: Ultrasound guided non-tunneled line placement. Clinical Indication: Renal failure The Procedure was deemed medically necessary, this was documented on the chart prior to beginning the procedure. The patient was prepped and draped using maximum sterile technique, including the use of: Current guideline approved cutaneous antisepsis, a large sterile sheet to establish a sterile field. Additionally the bullet lubricating machine operator wore a hat, mask, sterile gloves, a sterile gown during the procedure as well as practiced acceptable hand hygiene prior to placing the line. If ultrasound was utilized, sterile ultrasound technique was followed. Lidocaine epinephrine was used for local anesthesia. Ultrasound-guided access: The neck was scanned by ultrasound, the internal jugular vein is patent and compressible. Under ultrasound guidance, a single wall puncture was made into the vein followed by wire placement with subsequent tract dilation. An Ultrasound image was saved and sent to PACS. Next a 15 centimeter long hemodialysis catheter was advanced. The lumens were flushed with 1000u/cc heparinized saline. STAT Chest radiograph was ordered to confirm placement. Results are pending. Complication: none Contrast: none Sedation: none Conclusion: Successful right internal jugular non-tunneled hemodialysis catheter placement. Electronically signed by: Celso Higuera MD (06/15/2020 1:12 PM) [id number]
--- NOTE | 2020-06-28 16:52 | PDOC3 ---
Discharge Summary Date of Admission: Jun 11, 2020 Date of Discharge: Jun 12, 2020 Follow-Up: Other () Admitting Diagnosis comment: HOSPITAL/// SUMMARY Assessment/Plan Impression: 1. acute Hypoxic respiratory failure 2. POSITIVE covid-19 pneumonia 3. Ill-defined bibasilar opacities, can be seen with viral pneumonia. on cxr 06/11 4. ACUTE RENAL INJURY 5. Parkinson's disease, advanced 6. rhabdomyolysis 7. HYPOCALCEMIA, DEFER TO NEPHROLOGY 8. METABOLIC ACIDOSIS 9. THROMBOCYTOPENIA 10. microhematuria plan admit icu bed o2 support pulmonary consult Nephrology consult dvt prophylaxis SQ HEPARIN Q 8 HRS UNLESS HEMATOLOGY disagrees BLOOD CULTURE IV FLUID SUPPORT PER NEPHROLOGY iv pepsid 20mg bid ID CONSULT HEME CONSULT renal sono 06/13 code called undergoing due to agonal respirations , pending DNR STATUS DPOA ( Digital Marketing Program Manager Cheyenne Gomez). Explained prognosis. She agrees with present care. I and dr ruiz recommended no intubation/ CPR. She agrees .She needs in writing from two physicians stating this would be in his best interest. Will email document today i believe it is patients best interest for DNR STATUS D/W NURSING IN ICU 11:10 AM CRITICALLY ILL, POOR PROGNOSIS 34 MIN CC TIME Vitals Vitals Vital Signs Date Time Temp Pulse Resp B/P (MAP) Pulse Ox O2 Delivery O2 Flow Rate FiO2 06/13/20 07:00 89 32 85/65 (72) 95 Vapotherm 40.0 06/13/20 05:00 100.0 100.0 Physical Exam Physical Exam HENT: Normocephalic, atraumatic, no trismus, mild dry oral mucosa Eyes: PERRLA, EOMI, conjunctiva normal, no discharge. [] Neck: Normal range of motion, no tenderness, supple, no stridor. [] Cardiovascular:Heart rate regular rhythm, no murmur [] Lungs & Thorax: Diminished breath sounds with scattered rhonchi Abdomen: soft, no tenderness, no masses, no pulsatile masses. [] Skin: Warm, dry, pale Back: No tenderness, no CVA tenderness. [] Extremities: No tenderness, no cyanosis, no clubbing, ROM intact, no edema. [] Neurologic: Alert and and oriented to year but confused exact date., Generalized weakness General: ON vent HEENT: Atraumatic Abdomen: Soft Rectal Exam: not examined PELVIC: Examination not indicated General: Cooperative, mild distress Abdomen: Soft Extremities: No cyanosis Labs LABS EXAM: CHEST ONE VIEW. HISTORY: Line placement. COMPARISON: 06/11/2020. FINDINGS: A frontal view of the chest is obtained. A right internal jugular hemodialysis catheter has its tip in the right atrium. There are changes of coronary artery bypass grafting. The aortic arch appears very tortuous and ectatic, consistent with a thoracic aortic aneurysm. The silhouette is stable. Mild basilar hazy opacities is mild pulmonary edema. There is no pneumothorax or clear pleural effusion. The heart is not enlarged. IMPRESSION: 1. Correlate for mild pulmonary edema. 2. 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 Correlate for a known diagnosis. Electronically signed by: Noemi Martel MD (06/13/2020 10:53 AM) [facility] DICTATED and SIGNED BY: NAKIA MARTEL MD DATE: 06/13/20 1053 FINAL DIAGNOSIS Problems Medical Problems: (1) Profound anemia Status: Acute (2) Renal failure Status: Acute (3) Respiratory failure Status: Acute (4) Suspected COVID-19 virus infection Status: Acute Brief Hospital Course Mr. Campbell is a 69 old [sex] who presented with [ACUTE COVID-19 PNEUMONIA ] Assessment Identification/Chief Complaint Chief Complaint SEEN IN ER WITH SUSPECTED COVID-19 RESP SYNDROME AND OFELIA. 69 year old male who presents with fever. History and physical is limited as altered mental status. EMS reports a temperature of 101. Patient was also found to be hypoxic requiring oxygen. Patient denies any shortness of breath. //coughing in the room. // denies any pain at this time. ON 6 LITERS RI from a custodial with known COVID patients. cpk elevated as well Past Medical History Past Medical History Past Medical History Past Medical History: Dementia, Other Additional Past Medical Histor: parkinson's, pressure ulcer Left hip Additional Past Surgical Histo: pt is poor historian, + midline chest surgical scar (old) Smoking Status: Never Smoker Alcohol Use: None Drug Use: None fhx HTN CENTRAL NERVOUS SYSTEM: Other Musculoskeletal: Osteoarthritis Past Surgical History Past Surgical History: No pertinent history Family History Family History: Alzheimer's Disease, Hypertension CONDITION AT DISCHARGE: / Discharge Medications Current Medications Piperacillin Sod/ Tazobactam Sod 4.5 gm/Sodium Chloride 100 ml @ 200 mls/hr 1X ONCE IV Last administered on 06/11/20at 15:24; Start 06/11/20 at 15:30; Stop 06/11/20 at 15:59; Status DC Sodium Chloride 1,000 ml @ 1,000 mls/hr 1X ONCE IV Last administered on 06/11/20at 15:23; Start 06/11/20 at 15:00; Stop 06/11/20 at 15:59; Status DC Acetaminophen (Tylenol) 1,000 mg 1X ONCE PO Last administered on 06/11/20at 15:23; Start 06/11/20 at 15:30; Stop 06/11/20 at 15:31; Status DC Ondansetron HCl (Zofran) 4 mg PRN Q8HRS PRN IV NAUSEA/VOMITING; Start 06/11/20 at 16:15; Stop 06/12/20 at 16:14; Status DC Sodium Chloride 1,000 ml @ 125 mls/hr Q8H IV ; Start 06/11/20 at 16:07; Stop 06/11/20 at 18:50; Status DC Piperacillin Sod/ Tazobactam Sod (Zosyn Per Pharmacy) 1 each PRN DAILY PRN MC SEE COMMENTS; Start 06/11/20 at 18:00; Stop 06/13/20 at 14:29; Status DC Acetaminophen (Tylenol) 650 mg PRN Q6HRS PRN PO Headaches, Temp > 101.5'; Start 06/11/20 at 18:00; Stop 06/13/20 at 22:16; Status DC Famotidine (Pepcid Vial) 20 mg DAILY IVP Last administered on 06/13/20at 08:39; Start 06/11/20 at 21:00; Stop 06/13/20 at 14:29; Status DC Info (Icu Electrolyte Protocol) 1 ea DAILY MC ; Start 06/12/20 at 09:00; Stop 06/13/20 at 14:29; Status DC Heparin Sodium (Porcine) (Heparin Sodium) 5,000 unit Q8HRS SQ Last administered on 06/13/20at 05:24; Start 06/11/20 at 18:30; Stop 06/13/20 at 14:29; Status DC Sodium Chloride (Normal Saline Flush) 3 ml QSHIFT PRN IV AFTER MEDS AND BLOOD DRAWS; Start 06/11/20 at 18:00; Stop 06/13/20 at 14:29; Status DC Sodium Chloride 1,000 ml @ 100 mls/hr Q10H IV Last administered on 06/11/20at 20:35; Start 06/11/20 at 17:57; Stop 06/12/20 at 14:12; Status DC Docusate Sodium (Colace) 100 mg BID PO ; Start 06/11/20 at 21:00; Stop 06/13/20 at 14:29; Status DC Bisacodyl (Dulcolax Supp) 10 mg PRN DAILY PRN DE CONSTIPATION; Start 06/11/20 at 18:00; Stop 06/13/20 at 14:29; Status DC Ascorbic Acid (Vitamin C) 500 mg DAILY PO ; Start 06/12/20 at 09:00; Stop 06/13/20 at 14:29; Status DC Carbidopa/Levodopa (Sinemet 25/100) 1 tab QID PO ; Start 06/11/20 at 18:15; Stop 06/13/20 at 14:29; Status DC Multivitamins (Thera M Plus) 1 tab DAILY PO ; Start 06/12/20 at 09:00; Stop 06/13/20 at 14:29; Status DC Mupirocin (Bactroban) 1 oh BID NS Last administered on 06/12/20at 21:00; Start 06/11/20 at 21:00; Stop 06/13/20 at 14:29; Status DC Quetiapine Fumarate (SEROquel) 25 mg QHS PO ; Start 06/11/20 at 21:00; Stop 06/13/20 at 14:29; Status DC Ropinirole HCl (Requip) 4 mg BID PO ; Start 06/11/20 at 21:00; Stop 06/13/20 at 14:29; Status DC Piperacillin Sod/ Tazobactam Sod 2.25 gm/Sodium Chloride 50 ml @ 100 mls/hr Q6HRS IV Last administered on 06/13/20at 05:22; Start 06/11/20 at 18:30; Stop 06/13/20 at 08:36; Status DC Calcium Chloride 2000 mg/Sodium Chloride 120 ml @ 240 mls/hr 1X ONCE IV Last administered on 06/12/20at 07:39; Start 06/12/20 at 07:00; Stop 06/12/20 at 07:29; Status DC Amino Acids/ Glycerin/ Electrolytes 1,000 ml @ 80 mls/hr [id number] IV Last administered on 06/13/20at 02:52; Start 06/12/20 at 14:15; Stop 06/13/20 at 14:29; Status DC Diltiazem HCl 125 mg/Sodium Chloride 125 ml @ 5 mls/hr CONT PRN IV SEE I/O RECORD; Start 06/12/20 at 18:00; Stop 06/13/20 at 14:29; Status DC Diltiazem HCl (Cardizem Iv Push) 5 mg 1X ONCE IVP Last administered on 06/12/20at 17:59; Start 06/12/20 at 18:00; Stop 06/13/20 at 14:29; Status DC Magnesium Sulfate 50 ml @ 25 mls/hr 1X ONCE IV Last administered on 06/12/20at 18:33; Start 06/12/20 at 18:00; Stop 06/12/20 at 19:59; Status DC Morphine Sulfate (Morphine Sulfate) 2 mg 1X ONCE IVP Last administered on 06/12/20at 18:34; Start 06/12/20 at 18:15; Stop 06/12/20 at 18:16; Status DC Furosemide (Lasix) 40 mg 1X ONCE IVP Last administered on 06/12/20at 18:33; Start 06/12/20 at 18:30; Stop 06/12/20 at 18:31; Status DC Acetaminophen (Tylenol Supp) 650 mg PRN Q6HRS PRN DE MILD PAIN / TEMP > 100.3'F Last administered on 06/13/20at 05:23; Start 06/12/20 at 18:45; Stop 06/13/20 at 22:16; Status DC Sterile Water (WATER for RESP) 1,000 ml CONT PRN INH VIA VAPOTHERM DEVICE Last administered on 06/13/20at 02:45; Start 06/12/20 at 19:00; Stop 06/13/20 at 14:29; Status DC Sodium Bicarbonate 150 meq/Dextrose 1,150 ml @ 0 mls/hr 1X ONCE IV Last administered on 06/13/20at 06:47; Start 06/13/20 at 06:30; Stop 06/13/20 at 06:31; Status DC Sodium Bicarbonate (Sodium Bicarb Adult 8.4% Syr) 100 meq 1X ONCE IV Last administered on 06/13/20at 08:39; Start 06/13/20 at 08:45; Stop 06/13/20 at 14:29; Status DC Piperacillin Sod/ Tazobactam Sod 2.25 gm/Sodium Chloride 50 ml @ 100 mls/hr Q8H IV ; Start 06/13/20 at 14:00; Stop 06/13/20 at 14:29; Status DC Lidocaine HCl (Buffered Lidocaine 1%) 3 ml STK-MED ONCE .ROUTE ; Start 06/13/20 at 09:56; Stop 06/13/20 at 09:56; Status DC Lorazepam (Ativan Inj) 2 mg 1X ONCE IVP Last administered on 06/13/20at 11:41; Start 06/13/20 at 11:00; Stop 06/13/20 at 11:01; Status DC Lidocaine HCl (Buffered Lidocaine 1%) 4 ml 1X ONCE INJ Last administered on 06/13/20at 11:00; Start 06/13/20 at 11:00; Stop 06/13/20 at 14:29; Status DC Fentanyl Citrate 30 ml @ 0 mls/hr CONT PRN IV SEE PROTOCOL; Start 06/13/20 at 11:30; Stop 06/13/20 at 14:29; Status DC Propofol 100 ml @ 0 mls/hr CONT PRN IV SEE PROTOCOL; Start 06/13/20 at 11:30; Stop 06/13/20 at 14:29; Status DC Fentanyl Citrate (Fentanyl 2ml Vial) 25 mcg PRN Q1HR PRN IV SEE COMMENTS; Start 06/13/20 at 11:30; Stop 06/13/20 at 22:16; Status DC Fentanyl Citrate (Fentanyl 2ml Vial) 50 mcg PRN Q1HR PRN IV SEE COMMENTS; Start 06/13/20 at 11:30; Stop 06/13/20 at 22:16; Status DC Chlorhexidine Gluconate (Peridex) 15 ml BID MM ; Start 06/13/20 at 21:00; Stop 06/13/20 at 14:30; Status DC Midazolam HCl 100 ml @ 0 mls/hr CONT PRN IV SEE PROTOCOL Last administered on 06/13/20at 11:40; Start 06/13/20 at 11:30; Stop 06/13/20 at 14:30; Status DC Midazolam HCl (Versed) 5 mg STK-MED ONCE .ROUTE ; Start 06/13/20 at 11:33; Stop 06/13/20 at 11:33; Status DC Midazolam HCl (Versed) 5 mg 1X ONCE IV Last administered on 06/13/20at 11:38; Start 06/13/20 at 11:45; Stop 06/13/20 at 11:46; Status DC Etomidate (Amidate) 20 mg STK-MED ONCE IV ; Start 06/13/20 at 12:09; Stop 06/13/20 at 12:09; Status DC Succinylcholine Chloride (Anectine) 200 mg STK-MED ONCE .ROUTE ; Start 06/13/20 at 12:09; Stop 06/13/20 at 12:09; Status DC Lorazepam (Ativan Inj) 2 mg PRN Q4HRS PRN IVP ANXIETY / AGITATION Last administered on 06/13/20at 15:10; Start 06/13/20 at 13:00; Stop 06/13/20 at 22:16; Status DC Morphine Sulfate (Morphine Sulfate) 4 mg PRN Q2HR PRN IV PAIN Last administered on 06/13/20at 18:42; Start 06/13/20 at 13:00; Stop 06/13/20 at 22:16; Status DC Glycopyrrolate (Robinul) 1 mg 1X ONCE IV Last administered on 06/13/20at 13:32; Start 06/13/20 at 13:30; Stop 06/13/20 at 13:31; Status DC Active Scripts Active Keflex (Cephalexin) 500 Mg Capsule 1 Cap PO TID Vitamin C (Ascorbic Acid) 500 Mg Tablet 500 Mg PO DAILY Mupirocin Ointment (Mupirocin) 22 Gm Oint...g. 1 Oh NS BID Thera-M Tablet (Multivits,Ca,Minerals/Iron/Fa) 1 Each Tablet 1 Tab PO DAILY Reported Seroquel (Quetiapine Fumarate) 25 Mg Tablet 1 Tab PO QHS Ropinirole Hcl 4 Mg Tablet 4 Mg PO BID Atorvastatin Calcium 20 Mg Tablet 20 Mg PO HS Sinemet 25-100 Mg Tablet (Carbidopa/Levodopa) 1 Each Tablet 1 Tab PO QID PRN Allergies Allergies Coded Allergies Type Severity Reaction Last Updated Verified No Known Drug Allergies 07/28/19 No Disposition/Orders: Justicifation of Admission Dx: Justifications for Admission: Justification of Admission Dx: No MONICA SNIDER MD Jun 28, 2020 16:52
== END 2020-06-13 20:35 | disposition expired | DRG 208 ==
LOC: ER 14:52 → 1 WEST ICU 16:30
PROVIDERS: ADMIT Family Medicine; ATTEND Family Medicine
PROC: 5A1935Z Respiratory Ventilation, Less than 24 Consecutive Hours (ICD-10-PCS; principal; 2020-06-13)
PROC: 0BH17EZ Insertion of Endotracheal Airway into Trachea, Via Natural or Artificial Opening (ICD-10-PCS; 2020-06-13)
PROC: 02H633Z Insertion of Infusion Device into Right Atrium, Percutaneous Approach (ICD-10-PCS; 2020-06-13)
DX: U07.1 COVID-19 (principal); J96.01 Acute respiratory failure with hypoxia; J12.89 Other viral pneumonia; N17.9 Acute kidney failure, unspecified; E87.2 Acidosis; G40.89 Other seizures; M62.82 Rhabdomyolysis; D64.9 Anemia, unspecified; D69.6 Thrombocytopenia, unspecified; D72.810 Lymphocytopenia; E83.51 Hypocalcemia; F02.80 Dementia in other diseases classified elsewhere, unspecified severity, without behavioral disturbance, psychotic disturbance, mood disturbance, and anxiety; G20 Parkinson's disease; I12.9 Hypertensive chronic kidney disease with stage 1 through stage 4 chronic kidney disease, or unspecified chronic kidney disease; I48.91 Unspecified atrial fibrillation; I71.2 Thoracic aortic aneurysm, without rupture; L89.90 Pressure ulcer of unspecified site, unspecified stage; N18.9 Chronic kidney disease, unspecified; R31.29 Other microscopic hematuria; Z51.5 Encounter for palliative care; Z66 Do not resuscitate; Z82.0 Family history of epilepsy and other diseases of the nervous system; Z82.49 Family history of ischemic heart disease and other diseases of the circulatory system; M19.90 Unspecified osteoarthritis, unspecified site
CPT/HCPCS: 36415; 36556; 36600; 71045; 76937; 80053; 81001; 82310; 82550; 82728; 82805; 83540; 83550; 83605; 83690; 83735; 83880; 84132; 84145; 84443; 84466; 84484; 85025; 85045; 85379; 85384; 85610; 85730; 86140; 86850; 86900; 86901; 87040; 93005; 93970; 94002; 94640; 96365; C1892; J1644; J1940; J2060; J2250; J2270; J2543; J3475; J3490; J7030; J7060; 99291-25; G0378; U0003-CS